=== PATIENT | male | born 1945 | race Caucasian/White ===

== ENCOUNTER 2025-06-11 14:28 | Outpatient (REF) | payer MEDICARE, SELFPAY ==
--- OUTSIDE RECORDS SUMMARY | 2025-06-11 14:31 | XMS_ITS | Encounter Summary ---
Author Organization [email or web address] Address [address] [place] [address] Care Team Providers Care Calibrator Barometers Name Role Phone Belkis Francis MD Primary Care Provider Reason for Visit * Reason Comments Med Refill Encounter Details Date Type Department Care Team (Late st Contact Info) Description 09/02/2024 Refill [facility] [address] [place] [address] Belkis Francis MD [address] [place] [address] Body mass index (BMI) 40.0-44.9, adult (CMS/HCC) Social History Tobacco Use Types Packs/Day Years Used Date Smoking Tobacco: Former Cigarettes Smokeless Tobacco: Never Alcohol Use Standard Drinks/Week Comments Not Currently 0 (1 standard drink = 0.6 oz pur e alcohol) Sex and Gender Information Value Date Recorded Sex Assigned at Male 01/22/2023 11:47 AM EDT Legal Sex Male 8:38 PM EDT Gender Identity Male 01/22/2023 11:47 AM EDT Sexual Orientation Straight 01/22/2023 11 :47 AM EDT documented as of this encounter Plan of Treatment Not on file documented as of this encounter Visit Diagnoses Diagnosis Body mass index (BMI) 40.0-44.9, adult (CMS/HCC) documented in this encounter Care Teams Calibrator Barometers Relationship Specialty Start Date End Date Belkis Francis MD [address] [place] [address] PCP - General Internal Medicine 10/26/22 documented as of this encounter
--- OUTSIDE RECORDS SUMMARY | 2025-06-11 14:32 | XMS_ITS | Clinical Summary ---
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 02/09/20 25 Active sodium phosphates 19-7 gram/[address] 1 Units rectally daily as needed (Constipatio n). 04/29/20 25 Active senna (SENOKOT) 8.6 mg tablet Take 1 tablet by mouth daily as needed for constipation . 04/29/20 25 Active rosuvastatin (CRESTOR) 40 MG tablet Take 1 tablet by mouth every morning. 03/14/20 25 Active pregabalin (LYRICA) 50 MG capsule Take 50 mg by mouth 3 (three) times a day. 05/10/20 25 Active phentermine 15 MG capsule Take 15 mg by mouth 2 (two) times a day. 04/20/20 25 Active omeprazole (PRILOSEC) 20 MG capsule Take 20 mg by mouth daily. 04/19/20 25 Active montelukast (SINGULAIR) 10 mg tablet Take 10 mg by mouth every evening. 04/19/20 25 Active MYRBETRIQ 50 mg Tb24 Take 50 mg by mouth daily. 04/09/20 24 Active lisinopril (PRINIVIL,ZEST RIL) 5 MG tablet Take 5 mg by mouth daily. 11/12/19 25 Active ferrous sulfate 325 mg (65 mg nome iron) tablet Take 325 mg by mouth daily with breakfast. 04/30/20 Active LEXAPRO 20 mg tablet Take 20 mg by mouth daily. 12/30/19 25 Active DULoxetine (CYMBALTA) 60 MG capsule Take 60 mg by mouth daily. 04/30/20 25 Active docusate sodium (COLACE) 100 MG capsule Take 100 mg by mouth daily. 04/30/20 25 Active buPROPion (WELLBUTRIN SR) 150 MG SR 12 hr tablet Take 150 mg by mouth 2 (two) times a day with meals. 04/30/20 25 Active apixaban (ELIQUIS) 5 mg tablet Take 5 mg by mouth 2 (two) times a day. 04/30/20 25 Active acetaminophen (TYLENOL EXTRA STRENGTH) 500 MG tablet Take 1,000 mg by mouth every 8 (eight) hours as needed for pain (specific location in comments) or fever. 05/01/20 25 Active oxyCODONE 10 mg Tab Take 0.5-1 tablets (5-10 mg total) by mouth every 4 (four) hours as needed for pain (specific location in comments) (5 mg for moderate pain and 10 mg fro severe pain q 4 hrs). Partial fill ok 10 tablet 05/24/20 25 Active metoprolol tartrate (LOPRESSOR) 25 MG tablet Take 2 tablets (50 mg total) by mouth 2 (two) times a day. 120 tablet 05/24/20 25 Active zolpidem (AMBIEN) 5 MG tablet Take 5 mg by mouth daily. 05/07/20 25 025 Discontinued(No longer taking) OXYCONTIN 40 mg 12 hr tablet Take 1 tablet by mouth 2 (two) times a day. 03/30/20 25 025 Discontinued(St op Taking at Discharge) metoprolol tartrate (LOPRESSOR) 25 MG tablet Take 25 mg by mouth 2 (two) times a day. 06/15/20 24 025 Discontinued Active Problems Problem Noted Date Diagnosed Date Constipation 05/23/2025 Assessment & Plan (05/23/2025 6:42 PM EDT): Will start bowel regimen of senna, Colace and MiraLAX. Obesity hypoventilation syndrome 05/22/2025 Assessment & Plan (05/23/2025 6:42 PM EDT): Assessment & Plan (05/22/2025 5:53 PM EDT): Recurrent falls 05/18/2025 Altered mental status, unspe cified altered mental status type 05/18/2025 Assessment & Plan (05/23/2025 6:44 PM EDT): Toxic metabolic encephalopathy, multifactorial marked improvement on BiPAP overnight serotonin syndrome was initially thought to be part of the differential because of fever at presentation -now ruled out. High-dose opiate with OxyContin 40 mg every 12 hours at baseline. Apparently, the patient has been on this for some time. Given the degree of severity of his pulmonary illness and his high likelihood/propensity for hypercarbia and hypercarbic respiratory failure favor resuming only as needed oxycodone at a low dose. ICU feels that this patient should never resume long-acting OxyContin given his risk for respiratory depression. Therefore only getting PRN oxycodone with good effect. Will require BiPAP at night going forward as this is likely the source of his AMS. Seems more alert and oriented today. All of his antidepressants have been restarted at this point without changes to his mentation. Assessment & Plan (05/22/2025 5:53 PM EDT): Toxic metabolic encephalopathy, multifactorial marked improvement on BiPAP overnight serotonin syndrome was initially thought to be part of the differential because of fever at presentation -now ruled out. We will start reintroducing depression/anxiety medications today. Cymbalta first and then Lexapro and Wellbutrin tomorrow. High-dose opiate with OxyContin 40 mg every 12 hours at baseline. Apparently, the patient has been on this for some time. Given the degree of severity of his pulmonary illness and his high likelihood/propensity for hypercarbia and hypercarbic respiratory failure favor resuming only as needed oxycodone at a low dose. ICU feels that this patient should never resume long-acting OxyContin given his risk for respiratory depression. Seems more alert and oriented today. Assessment & Plan (05/21/2025 9:47 PM EDT): Toxic metabolic encephalopathy, multifactorial marked improvement on BiPAP overnight serotonin syndrome was initially thought to be part of the differential because of fever at presentation -now ruled out. We will start reintroducing depression/anxiety medications today. Cymbalta first and then Lexapro and Wellbutrin next 24 hours High-dose opiate with OxyContin 40 mg every 12 hours at baseline. Apparently, the patient has been on this for some time. Given the degree of severity of his pulmonary illness and his high likelihood/propensity for hypercarbia and hypercarbic respiratory failure favor resuming only as needed oxycodone at a low dose. ICU feels that this patient should never resume long-acting OxyContin given his risk for respiratory depression. Seems more alert and oriented today. Fever 05/18/2025 Assessment & Plan (05/23/2025 6:42 PM EDT): No evidence of infection so antibiotics stopped in the ICU. Assessment & Plan (05/22/2025 5:53 PM EDT): No evidence of infection so antibiotics stopped in the ICU. Assessment & Plan (05/21/2025 9:47 PM EDT): No evidence of infection so antibiotics stopped in the ICU. Atrial fibrillation with RVR 05/18/2025 Assessment & Plan (05/23/2025 6:42 PM EDT): Bedside echo had very poor acoustic windows and the patient was in A-fib with a rapid ventricular response rate. Continue usual apixaban given persistent rapid ventricular response, Continue increased dose p.o. Lopressor 50 mg p.o. twice daily Assessment & Plan (05/22/2025 5:53 PM EDT): Bedside echo had very poor acoustic windows and the patient was in A-fib with a rapid ventricular response rate. Continue usual apixaban given persistent rapid ventricular response, Continue increased p.o. Lopressor 50 mg p.o. twice daily Assessment & Plan (05/21/2025 9:47 PM EDT): Continue metoprolol and apixaban Acute encephalopathy 05/18/2025 Osteoarthritis 04/30/2025 Sleep apnea with use of noct urnal bilevel positive airway pressure (BPAP) 04/30/2025 Assessment & Plan (05/23/2025 6:42 PM EDT): Obesity hypoventilation syndrome, obstructive sleep apnea not on CPAP, acute on chronic hypoxic respiratory failure Maintain nocturnal BiPAP --CT of chest this admission with overt evidence for tracheobronchial malacia. This patient would likely benefit from positive pressure ventilatory support with BiPAP or AVAPS going forward No CT evidence for pneumonia or PE --antibiotics discontinued 05/20. Planning to trend inflammatory markers and fever curve Will arrange for BiPAP at SNF, and they can arrange for this to be set up at home at discharge. He has been accepted at [facility] but they will need to obtain BiPAP and a bariatric bed on Saturday prior to his discharge. Assessment & Plan (05/22/2025 5:53 PM EDT): Obesity hypoventilation syndrome, obstructive sleep apnea not on CPAP, acute on chronic hypoxic respiratory failure Maintain nocturnal BiPAP --CT of chest this admission with overt evidence for tracheobronchial malacia. This patient would likely benefit from positive pressure ventilatory support with BiPAP or AVAPS going forward No CT evidence for pneumonia or PE --antibiotics discontinued 05/20. Planning to trend inflammatory markers and fever curve Will arrange for BiPAP at SNF, and they can arrange for this to be set up at home at discharge. He has been accepted at [facility] but they will need to obtain BiPAP and a bariatric bed on Saturday prior to his discharge. Assessment & Plan (05/21/2025 9:47 PM EDT): Obesity hypoventilation syndrome, obstructive sleep apnea not on CPAP, acute on chronic hypoxic respiratory failure Maintain nocturnal BiPAP --CT of chest this admission with overt evidence for tracheobronchial malacia. This patient would likely benefit from positive pressure ventilatory support with BiPAP or AVAPS going forward No CT evidence for pneumonia or PE --antibiotics discontinued 05/20. Planning to trend inflammatory markers and fever curve Insomnia 04/30/2025 Edema of lower extremity 04/30/2025 Body mass index (BMI) 45.0-49.9, adult Retention of urine 04/29/2025 Localized edema 04/29/2025 Hypervolemia 04/29/2025 Hyperlipidemia 04/29/2025 Disorientated 04/29/2025 Hypo-osmolality and hyponatremia 04/29/2025 Anxiety and depression 04/29/2025 Assessment & Plan (05/23/2025 6:42 PM EDT): Continue duloxetine Restarted Wellbutrin and Lexapro 05/22. Assessment & Plan (05/22/2025 5:53 PM EDT): Continue duloxetine Start back his Wellbutrin and Lexapro tomorrow. Assessment & Plan (05/21/2025 9:47 PM EDT): Continue duloxetine Recurrent major depressive disorder 12/20/2022 Assessment & Plan (05/21/2025 9:47 PM EDT): Paroxysmal atrial fibrillation 12/20/2022 Assessment & Plan (05/21/2025 9:47 PM EDT): Bedside echo had very poor acoustic windows and the patient was in A-fib with a rapid ventricular response rate. 1.1 L positive length of stay Continue usual apixaban given persistent rapid ventricular response, will increase usual p.o. Lopressor 25 mg twice daily To 50 mg p.o. twice daily Chronic GERD 12/20/2022 Assessment & Plan (05/23/2025 6:42 PM EDT): Report of black stool occult blood positive trend CBC on PPI. Tolerated regular diet. Should get outpatient GI referral for colonoscopy. Assessment & Plan (05/22/2025 5:53 PM EDT): Report of black stool occult blood positive trend CBC on PPI if persists will need GI eval advance diet as tolerated now that mental status improved and patient off BiPAP. Complete bedside swallowing evaluation Assessment & Plan (05/21/2025 9:47 PM EDT): Report of black stool occult blood positive trend CBC on PPI if persists will need GI eval advance diet as tolerated now that mental status improved and patient off BiPAP. 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 Assessment & Plan (05/22/2025 5:53 PM EDT): Change from OxyContin ER to oxycodone 5 mg as needed, will monitor for signs of opiate withdrawal. Assessment & Plan (05/21/2025 9:47 PM EDT): Change from OxyContin ER to oxycodone 5 mg as needed, will monitor for signs of opiate withdrawal. Chronic obstructive pulmonary disease 12/20/2022 Assessment & Plan (05/21/2025 9:47 PM EDT): Encounters Date Type Department Care Team Description 05/19/2025 10:15 AM EDT Ancillary Procedure [address] [address] Froylan Rowe CNP 05/18/2025 6:00 PM EDT - 05/18/2025 6:55 PM EDT Surgery [facility] [address] [place] [id number] Ghanshyam Amaya MD Lumbar Puncture 05/18/2025 1:35 PM EDT Ancillary Procedure [facility] - [address] [address] Vance Finney PA-C 05/18/2025 11:09 AM EDT - 05/24/2025 1:19 PM EDT Hospital Encounter [facility] [address] [place] [id number] Milvia Ayers MD Zaman, MD Tawanna Noland Sandeep, MD Yau, MD Guerrero Vences Helena C, DO Discharge Disposition: Shelter Facility 05/18/2025 10:26 AM EDT - 05/18/2025 11:08 AM EDT Hospital Encounter [facility] Laboratory [address] [place] [address] Jesse Lopez MD Discharge Disposition: Home or Self Care 05/18/2025 Procedure Pass [address] [address] 05/18/2025 Procedure Pass [address] [address] 05/18/2025 Procedure Pass [facility] Cardiovascular And Interventional Radiology [address] [place] [id number] 05/18/2025 Procedure Pass [address] [address] 05/18/2025 Procedure Pass [address] [address] 05/18/2025 Transcribe Orders [facility] Specimen Processing [address] [place] [id number] Jesse Lopez MD Anemia, unspecified type (Primary Dx); Essential hypertension, malignant 05/13/2025 7:20 AM EDT - 05/13/2025 11:59 PM EDT Hospital Encounter [facility] Laboratory [address] [place] [address] Jesse Lopez MD Discharge Disposition: Home or Self Care 05/11/2025 8:38 AM EDT - 05/11/2025 11:59 PM EDT Hospital Encounter [facility] Laboratory [address] [place] [address] Ninfa Gonzalez NP Discharge Disposition: Home or Self Care 05/11/2025 Transcribe Orders [facility] Specimen Processing [address] [place] [address] Ninfa Gonzalez NP Hypervolemia, unspecified hypervolemia type (Primary Dx) 05/10/2025 10:20 AM EDT - 05/10/2025 11:59 PM EDT Hospital Encounter [facility] Laboratory [address] [place] [address] Jesse Lopez MD Discharge Disposition: Home or Self Care 05/10/2025 Transcribe Orders [facility] Specimen Processing [address] [place] [address] Jesse Lopez MD Anemia, unspecified type (Primary Dx) 05/09/2025 3:43 PM EDT - 05/09/2025 11:59 PM EDT Hospital Encounter [facility] Laboratory [address] [place] [address] Jesse Lopez MD Discharge Disposition: Home or Self Care 05/09/2025 Transcribe Orders [facility] Laboratory [address] [place] [id number] Jesse Lopez MD Hyposmolality syndrome (Primary Dx); Altered mental status, unspecified altered mental status type 05/07/2025 7:19 AM EDT - 05/07/2025 11:59 PM EDT Hospital Encounter [facility] Laboratory [address] [place] [address] Jesse Lopez MD Discharge Disposition: Home or Self Care 05/05/2025 6:27 AM EDT - 05/05/2025 11:59 PM EDT Hospital Encounter [facility] Laboratory [address] [place] [address] Jesse Lopez MD Discharge Disposition: Home or Self Care 05/05/2025 Transcribe Orders [facility] Specimen Processing [address] [place] [address] Jesse Lopez MD Confusion (Primary Dx); Altered mental status, unspecified altered mental status type; Essential hypertension, malignant 05/05/2025 Transcribe Orders [facility] Specimen Processing [address] [place] [address] Jesse Lopez MD Atrial fibrillation, unspecified type (Primary Dx) 04/30/2025 10:48 AM EDT - 04/30/2025 11:59 PM EDT Hospital Encounter [facility] Laboratory [address] [place] [address] Jesse Lopez MD Discharge Disposition: Home or Self Care 04/30/2025 Transcribe Orders [facility] Specimen Processing [address] [place] [address] Jesse Lopez MD Atrial fibrillation, unspecified type (Primary Dx) from Last 3 Months Immunizations Immunization Administration Dates Next Due Pneumococcal polysaccharide PPSV23 06/01/2019,,11/30/2012 Tdap 06/01/2019 Social History Tobacco Use Types Packs/Day Years Used Date Smoking Tobacco: Former Cigarettes Education Answer Date Recorded Are you interested in more education? Not on brady e 04/30/2025 Are you concerned about learning? Not on file 04/30/2025 No 04/30/2025 No 04/30/2025 Food Answer Date Recorded Within the past 6 months we worried whether our food would run out before we got money to buy more. Never True 05/21/2025 Within the past 6 months the food we bought just didn't last and we didn't have enough money to get more. Never True Residential Stability Answer Date Recor ded What is your housing situation today? I have shaji sing 05/21/2025 How many times have you move d in the past 12 months? Zero (I did not move) 05/21/2025 Paying for Meds Answer Date Recorded Do you have trouble paying for medicines? No 05/21/2025 Paying Utility Bills Answer Date Record ed Do you have trouble paying your heating or elect ricity bill? No 05/21/2025 Transportation Answer Date Recorded Has the lack of transportati on kept you from medical appointments or from getting medications? No 05/21/2025 Digital Access Answer Date Recorded No 05/21/2025 Yes 05/21/2025 Do you have reliable internet access at home? Ye s 05/21/2025 Do you have a device (e.g., phone, tablet, computer) with a working camera? Yes 05/21/2025 Intimate Partner Violence Answer Date R ecorded Are you denied basic needs s uch as food, clothing, or medical care? No 05/18/2025 In the past 12 months have y ou been in a relationship with a person who hurts, threatens, or tries to control you? No 05/18/2025 Are you denied basic needs s uch as food, clothing, or medical care? No 05/18/2025 In the past 12 months have y ou been in a relationship with a person who hurts, threatens, or tries to control you? No 05/18/2025 Sex and Gender Information Value Date Recorded Sex Assigned at Not on file Legal Sex Male 9:43 AM EDT Gender Identity Not on file Sexual Orientation Not on file Last Filed Vital Signs Vital Sign Reading Time Taken Comments Blood Pressure 120/75 05/24/2025 7:41 AM EDT Pulse 86 05/24/2025 7:41 AM EDT Temperature 35.9 C (96.7 F) 05/24/2025 7:41 AM EDT Respiratory Rate 18 05/24/2025 7:41 AM EDT Oxygen Saturation 96% 05/24/2025 7:41 AM EDT Inhaled Oxygen Concentration 30% 05/20/2025 4 :00 AM EDT Weight 154.7 kg (341 lb 0.8 oz) 05/24/2025 8:02 AM EDT Height 190.5 cm (6' 3 ) 05/18/2025 10:0 0 PM EDT Body Mass Index 42.63 05/18/2025 10:00 PM EDT Plan of Treatment Health Maintenance Due Date Last Done Comments BLOOD PRESSURE 1947 DEPRESSION SCREENING 1959 SMOKING Hx and SMOKELESS TOBACCO SCREENING 1960 HEPATITIS C SCREENING 1965 ZOSTER VACCINES (1 of 2) 1997 PNEUMOCOCCAL VACCINES (50+ years) (2 of 2 - PCV) 06/01/2020 06/01/2019, 06/21/2015, 11/30/2012 RSV VACCINE (1 - 1-dose 75+ series) 2022 COVID-19 VACCINE (1 - 2023- season) 2024 CREATININE LEVEL 05/23/2026 05/23/2025, 11/2024, 05/21/2025, Additional history exists POTASSIUM LEVEL 05/23/2026 05/23/2025, 0811/2024, 05/21/2025, Additional history exists Adult Td,Tdap Booster 06/01/2029 06/01/2019 HEPATITIS A VACCINES Aged Out No long er eligible based on patient's age to complete this topic HIB VACCINES Aged Out No longer eligi ble based on patient's age to complete this topic MENINGOCOCCAL VACCINES (ACWY) Aged Out No longer eligible based on patient's age to complete this topic MENINGOCOCCAL VACCINES (B) Aged Out N o longer eligible based on patient's age to complete this topic Medical Devices Not on file Procedures Procedure Name Priority Date/Time Associated Diagnosis Comments CBC Routine 05/23/2025 7:03 AM EDT BASIC METABOLIC PANEL Routine 05/23/2025 7:03 AM EDT CBC Routine 05/22/2025 8:15 AM EDT BASIC METABOLIC PANEL Routine 05/22/2025 8:15 AM EDT PROCALCITONIN Routine 05/21/2025 5:54 AM EDT PHOSPHORUS Routine 05/21/2025 5:54 AM EDT MAGNESIUM Routine 05/21/2025 5:54 AM EDT BASIC METABOLIC PANEL Routine 05/21/2025 5:54 AM EDT CBC AND DIFFERENTIAL Routine 05/21/2025 5:54 AM EDT CBC AND DIFFERENTIAL STAT 05/20/2025 3:38 PM EDT PHOSPHORUS Timed 05/20/2025 3:38 PM EDT MAGNESIUM Timed 05/20/2025 3:38 PM EDT IONIZED CALCIUM Timed 05/20/2025 3:38 PM EDT BASIC METABOLIC PANEL Timed 05/20/2025 3:38 PM EDT HC BLOOD OCCULT FECAL HGB DETER IA QUAL FECES 1-3 Routine 05/20/2025 2:01 PM EDT VENOUS BLOOD GAS Routine 05/20/2025 6:00 AM EDT XR CHEST 1 VIEW Imaging in AM 05/20/2025 5:37 AM EDT SEDIMENTATION RATE (ESR) Routine 05/20/2025 3:23 AM EDT C-REACTIVE PROTEIN Routine 05/20/2025 3: 23 AM EDT PT-INR Routine 05/20/2025 3:23 AM EDT NT-PROBNP Routine 05/20/2025 3:23 AM EDT PROCALCITONIN Routine 05/20/2025 3:23 AM EDT TSH WITH REFLEX Routine 05/20/2025 3:23 AM EDT IONIZED CALCIUM Routine 05/20/2025 3:23 AM EDT PHOSPHORUS Routine 05/20/2025 3:23 AM EDT MAGNESIUM Routine 05/20/2025 3:23 AM EDT CBC AND DIFFERENTIAL Routine 05/20/2025 3:23 AM EDT COMPREHENSIVE METABOLIC PANEL Routine 05/20/2025 3:23 AM EDT US BEDSIDE Routine 05/19/2025 10:11 AM EDT Sepsis, due to unspecified organism, unspecified whether acute organ dysfunction present POCT GLUCOSE Routine 05/19/2025 8:23 AM EDT ARTERIAL BLOOD GAS STAT 05/19/2025 7: 23 AM EDT LFTS (HEPATIC PANEL) Routine 05/19/2025 3:30 AM EDT PROCALCITONIN Routine 05/19/2025 3:30 AM EDT C-REACTIVE PROTEIN, HIGH SENSITIVITY Routine 05/19/2025 3:30 AM EDT CBC AND DIFFERENTIAL Routine 05/19/2025 3:30 AM EDT PHOSPHORUS Routine 05/19/2025 3:30 AM EDT MAGNESIUM Routine 05/19/2025 3:30 AM EDT BASIC METABOLIC PANEL Routine 05/19/2025 3:30 AM EDT GENERIC BEDSIDE PROCEDURE Routine 05/19/2025 2:52 AM EDT Altered mental status, unspecified altered mental status type Fever, unspecified fever cause Acute encephalopathy IP CONSULT TO WOUND NURSE Routine 05/18/2025 11:00 PM EDT MRSA PCR SCREEN Routine 05/18/2025 10:41 PM EDT VENOUS BLOOD GAS STAT 05/18/2025 8:49 PM EDT MENINGITIS ENCEPHALITIS PANEL, PCR, CSF STAT 05/18/2025 7:37 PM EDT GLUCOSE, CSF STAT 05/18/2025 6:40 PM EDT TOTAL PROTEIN, CSF STAT 05/18/2025 6: 40 PM EDT CELL COUNT & DIFFERENTIAL, TUBE 4 STAT 05/18/2025 6:40 PM EDT Cell count/differential, CSF STAT 05/18/2025 6:40 PM EDT LYME DISEASE PCR, NON BLOOD Routine 05/18/2025 6:40 PM EDT CULTURE/SMEAR, CSF STAT 05/18/2025 6: 40 PM EDT LUMBAR PUNCTURE (IR) Routine 05/18/2025 6:28 PM EDT Altered mental status, unspecified altered mental status type LACTIC ACID (LACTATE) STAT 05/18/2025 5:[address] ABDOMEN/PELVIS WITH CONTRAST Routine 05/18/2025 5:[address] CHEST WITH CONTRAST Routine 05/18/2025 5:[address] ANGIO HEAD WITH CONTRAST, CT ANGIO NECK WITH CONTRAST Routine 05/18/2025 4:[address] HEAD WITHOUT CONTRAST Routine 05/18/2025 4:58 PM EDT BLOOD CULTURE, ROUTINE STAT 05/18/2025 3:45 PM EDT AMMONIA STAT 05/18/2025 2:48 PM EDT ETHANOL, BLOOD STAT 05/18/2025 2:48 PM EDT LACTIC ACID (LACTATE) STAT 05/18/2025 2:48 PM EDT LAB ADD ON STAT 05/18/2025 2:48 PM EDT BLOOD CULTURE, ROUTINE STAT 05/18/2025 2:48 PM EDT ECG 12-LEAD STAT 05/18/2025 2:28 PM EDT TOXICOLOGY SCREEN, URINE STAT 05/18/2025 1:54 PM EDT US BEDSIDE Routine 05/18/2025 1:30 PM EDT POCT GLUCOSE STAT 05/18/2025 12:15 PM EDT POCT GLUCOSE Routine 05/18/2025 12:14 PM EDT TSH WITH REFLEX Routine 05/18/2025 12:13 PM EDT CPK (CREATINE KINASE) Routine 05/18/2025 12:13 PM EDT C-REACTIVE PROTEIN Routine 05/18/2025 12:13 PM EDT PT-INR STAT 05/18/2025 12:13 PM EDT LACTIC ACID (LACTATE) STAT 05/18/2025 12:13 PM EDT LIPASE STAT 05/18/2025 12:13 PM EDT MAGNESIUM STAT 05/18/2025 12:13 PM EDT LFTS (HEPATIC PANEL) STAT 05/18/2025 12:13 PM EDT BASIC METABOLIC PANEL STAT 05/18/2025 12:13 PM EDT CBC AND DIFFERENTIAL STAT 05/18/2025 12:13 PM EDT URINALYSIS W/REFLEX URINE CULTURE STAT 05/18/2025 12:09 PM EDT ECG 12-LEAD STAT 05/18/2025 12:05 PM EDT BASIC METABOLIC PANEL Routine 05/18/2025 8:05 AM EDT Anemia, unspecified type Essential hypertension, malignant CBC Routine 05/18/2025 8:05 AM EDT Anemia, unspecified type Essential hypertension, malignant COMPREHENSIVE METABOLIC PANEL Routine 05/13/2025 6:18 AM EDT Hypervolemia, unspecified hypervolemia type Essential hypertension, malignant CBC Routine 05/13/2025 6:18 AM EDT Hypervolemia, unspecified hypervolemia type Essential hypertension, malignant PHOSPHORUS Routine 05/11/2025 6:25 AM EDT Hypervolemia, unspecified hypervolemia type MAGNESIUM Routine 05/11/2025 6:25 AM EDT Hypervolemia, unspecified hypervolemia type CBC Routine 05/11/2025 6:25 AM EDT Hypervolemia, unspecified hypervolemia type BASIC METABOLIC PANEL Routine 05/11/2025 6:25 AM EDT Hypervolemia, unspecified hypervolemia type COMPREHENSIVE METABOLIC PANEL Routine 05/10/2025 7:20 AM EDT Anemia, unspecified type CBC Routine 05/10/2025 7:20 AM EDT Anemia, unspecified type COMPREHENSIVE METABOLIC PANEL Routine 05/09/2025 3:17 PM EDT Hyposmolality syndrome Altered mental status, unspecified altered mental status type COMPREHENSIVE METABOLIC PANEL Routine 05/07/2025 7:20 AM EDT Confusion Altered mental status, unspecified altered mental status type Essential hypertension, malignant CBC Routine 05/07/2025 7:20 AM EDT Confusion Altered mental status, unspecified altered mental status type Essential hypertension, malignant URINE SEDIMENT Routine 05/05/2025 1:42 PM EDT URINALYSIS Routine 05/05/2025 1:42 PM EDT Confusion Altered mental status, unspecified altered mental status type URINE CULTURE Routine 05/05/2025 1:42 PM EDT Confusion Altered mental status, unspecified altered mental status type BASIC METABOLIC PANEL Routine 05/05/2025 5:35 AM EDT Atrial fibrillation, unspecified type CBC Routine 05/05/2025 5:35 AM EDT Atrial fibrillation, unspecified type COMPREHENSIVE METABOLIC PANEL Routine 04/30/2025 5:20 AM EDT Atrial fibrillation, unspecified type CBC Routine 04/30/2025 5:20 AM EDT Atrial fibrillation, unspecified type from Last 3 Months Results * (ABNORMAL) CBC (05/23/2025 7:03 AM EDT) Only the most recent of9 resultswithin the time period is included. WBC 6.64 4.00 - 11.00 K/uL [facility] RBC 4.48(L) 4.50 - 5.90 M/uL [facility] HGB 12.0(L) 13.5 - 17.5 g/dL [facility] HCT 39.9(L) 41.0 - 53.0 % [facility] PLT 215 150 - 450 K/uL [facility] MCV 89.1 80.0 - 100.0 fL [facility] MCH 26.8(L) 27.0 - 31.0 pg [facility] MCHC 30.1(L) 32.0 - 36.0 g/dL [facility] RDW 23.8(H) 11.5 - 14.5 % [facility] MPV 8.8 8.4 - 12.0 fL [facility] NRBC 0.00 0.00 /100 WBCs [facility] ABSOLUTE NRBC 0.00 0.00 K/uL [facility] Blood 05/23/2025 7:03 AM EDT 05/23/2025 7:10 AM EDT Varun Bautista MD LAB BLOOD ORDERABLES Final Resul t Performing Organization Address City/[facility]/ZIP Co de Phone Number [address] [address] * (ABNORMAL) Basic metabolic panel (05/23/2025 7:03 AM EDT) Only the most recent of9 resultswithin the time period is included. SODIUM 142 133 - 146 mmol/L [facility] CHLORIDE 101 96 - 108 mmol/L [facility] POTASSIUM 4.5 3.3 - 5.1 mmol/L [facility] CO2 32 21 - 35 mmol/L [facility] BUN 12 6 - 19 mg/dL [facility] CREATININE 0.60 0.5 - 1.5 mg/dL [facility] GLUCOSE 109(H) 70 - 99 mg/dL [facility] CALCIUM 9.3 8.4 - 10.3 mg/dL [facility] EGFR 99 >59 mL/min/1.7 3m2 [facility] Comment:Estimated glomerular filtration rate calculated using the CKD-EPI refit equation. ANION GAP 14 10 - 20 mmol/L [facility] Blood 05/23/2025 7:03 AM EDT 05/23/2025 7:10 AM EDT Varun Bautista MD LAB BLOOD ORDERABLES Final Resul t [address] [address] * Procalcitonin (05/21/2025 5:54 AM EDT) Only the most recent of3 resultswithin the time period is included. Procalcitonin 0.03 0.00 - 0.25 ng/mL [facility] Comment: <=0.25 ng/mL: Bacterial pneumonia is unlikely. <0.5 ng/mL: Low likelihood of systemic bacterial infection / sepsis. Localized infection is possible. 0.5-2.0 ng/mL: Systemic bacterial infection / sepsis is possible, but other conditions can induce PCT levels in this range as well (e.g., pancreatitis,severe trauma, circulatory shock, surgery, gonzalez, inhalation injury.) >2.0 ng/mL: Systemic bacterial infection / sepsis is likely. Additional information can be found in the [employer] Procalcitonin Guidelines, available at [email or web address] Blood 05/21/2025 5:54 AM EDT 05/21/2025 6:00 AM EDT us Froylan Rowe [facility] LAB BLOOD ORDERABLES Cara ramos Result [address] [address] * (ABNORMAL) CBC and differential (05/21/2025 5:54 AM EDT) Only the most recent of5 resultswithin the time period is included. WBC 7.09 4.00 - 11.00 K/uL [facility] RBC 4.32(L) 4.50 - 5.90 M/uL [facility] HGB 11.4(L) 13.5 - 17.5 g/dL [facility] HCT 37.8(L) 41.0 - 53.0 % [facility] PLT 226 150 - 450 K/uL [facility] MCV 87.5 80.0 - 100.0 fL [facility] MCH 26.4(L) 27.0 - 31.0 pg [facility] MCHC 30.2(L) 32.0 - 36.0 g/dL [facility] RDW 24.3(H) 11.5 - 14.5 % [facility] MPV 8.5 8.4 - 12.0 fL [facility] NRBC 0.00 0.00 /100 WBCs [facility] ABSOLUTE NRBC 0.00 0.00 K/uL [facility] DIFF METHOD Auto [facility] NEUTS 62.5 48.0 - 76.0 % [facility] LYMPHS 17.5(L) 18.0 - 41.0 % [facility] MONOS 11.1(H) 4.0 - 11.0 % [facility] EOS 7.9(H) 0.0 - 5.0 % [facility] BASOS 0.7 0.0 - 1.5 % [facility] Granulocytes, immature (%) 0.3 0.0 - 0.9 % [facility] ABSOLUTE NEUTS 4.43 1.92 - 7.60 K/uL [facility] ABSOLUTE LYMPHS 1.24 0.72 - 4.10 K/uL [facility] ABSOLUTE MONOS 0.79 0.16 - 1.10 K/uL [facility] ABSOLUTE EOS 0.56(H) 0.00 - 0.50 K/uL [facility] ABSOLUTE BASOS 0.05 0.00 - 0.15 K/uL [facility] Granulocytes, immature 0.02 0.00 - 0.09 K/uL [facility] Blood 05/21/2025 5:54 AM EDT 05/21/2025 6:00 AM EDT Froylan Rowe CNP LAB BLOOD ORDERABLES Cara l Result [address] [address] * Phosphorus (05/21/2025 5:54 AM EDT) Only the most recent of5 resultswithin the time period is included. PHOSPHORUS 3.5 2.7 - 4.5 mg/dL [facility] Blood 05/21/2025 5:54 AM EDT 05/21/2025 6:00 AM EDT Froylan Rowe [facility] LAB BLOOD ORDERABLES Cara l Result [address] [address] * Magnesium (05/21/2025 5:54 AM EDT) Only the most recent of6 resultswithin the time period is included. [facility] MAGNESIUM 2.1 1.6 - 2.6 mg/dL [facility] Blood 05/21/2025 5:54 AM EDT 05/21/2025 6:00 AM EDT us Froylan Rowe [employer] LAB BLOOD ORDERABLES Cara l Result Performing Organization Address [facility]/ZIP Co de Phone Number [address] [address] * Ionized calcium (05/20/2025 3:38 PM EDT) Only the most recent of2 resultswithin the time period is included. [facility] IONIZED CALCIUM 1.18 1.14 - 1.37 mmol/L [facility] Blood 05/20/2025 3:38 PM EDT 05/20/2025 4:07 PM EDT us Criselda Mckeon MD LAB BLOOD ORDERABLES Final Re sult Performing Organization Address [facility] Co de Phone Number [address] [address] * (ABNORMAL) Fecal immunochemical test x1 (FIT) (05/20/2025 2:01 PM EDT) [facility] Immuno Fecal Occult Positive(A ) Negative [facility] Stool (Stool) 05/20/2025 2:0 1 PM EDT 05/20/2025 2:21 PM EDT us Criselda Mckeon MD BODY FLUIDS AND STOOLS ORDERA BLES Final Result Performing Organization Address [facility] Co de Phone Number [address] [address] * (ABNORMAL) Venous blood gas (05/20/2025 6:00 AM EDT) Only the most recent of2 resultswithin the time period is included. [facility] pH, Venous 7.48(H) 7.31 - 7.41 [facility] PCO2, Venous 36.00(L) 41.00 - 51.00 mmHg [facility] PO2, Venous 191.90(H) 35.00 - 40.00 mmHg [facility] HCO3, Venous 26 23 - 28 mmol/L [facility] BASE EXCESS VENOUS 3.0 0.0 - 3.0 mmol/L [facility] SO2, VENOUS 99.80(H) 60.00 - 80.00 % [facility] FO2HB, VENOUS 97.60(H) 71.00 - 74.00 % [facility] Carboxy Hgb 2.20(H) 0 - 1.50 % [facility] MetHgb % 0.00 0 - 1.50 % [facility] Blood 05/20/2025 6:00 AM EDT 05/20/2025 6:07 AM EDT Mariela Lemos PA-C, MPH LAB BLOOD ORDERABLE S Final Result [facility] [address] [place] [address] * XR CHEST 1 VIEW (05/20/2025 5:37 AM EDT) Anatomical Region Laterality Modality Chest Computed Radiogr aphy 05/20/2025 8:02 AM EDT Impressions 05/20/2025 8:04 AM EDT Low lung volumes without evidence of pneumonia or pulmonary edema. Narrative 05/20/2025 8:04 AM EDT XR CHEST 1 VIEW Referring clinician's provided indication for this examination in [facility]: Fever; COMPARISON: CT CHEST WITH CONTRAST FINDINGS: Devices/Tubes/Lines: None. Lungs: Low lung volumes without focal consolidation or pulmonary edema. Pleura: No pleural effusion or pneumothorax. Heart/Mediastinum: Cardiac silhouette and mediastinal contours are within normal limits. Bones/Soft Tissues: No acute osseous finding. Partially visualized upper abdomen: Unremarkable. Procedure Note Kianna Leonardo MD - 05/20/2025 XR CHEST 1 VIEW Referring clinician's provided indication for this examination in [facility]:Fever; COMPARISON: CT CHEST WITH CONTRAST FINDINGS: Devices/Tubes/Lines: None. Lungs: Low lung volumes without focal consolidation or pulmonary edema. Pleura: No pleural effusion or pneumothorax. Heart/Mediastinum: Cardiac silhouette and mediastinal contours are withinnormal limits. Bones/Soft Tissues: No acute osseous finding. Partially visualized upper abdomen: Unremarkable. IMPRESSION: Low lung volumes without evidence of pneumonia or pulmonary edema. us Criselda Mckeon MD IMG XR CHEST Final Result * (ABNORMAL) Comprehensive metabolic panel (05/20/2025 3:23 AM EDT) Only the most recent of6 resultswithin the time period is included. SODIUM 142 133 - 146 mmol/L [facility] POTASSIUM 3.3 3.3 - 5.1 mmol/L [facility] CHLORIDE 103 96 - 108 mmol/L [facility] CO2 27 21 - 35 mmol/L [facility] BUN 15 6 - 19 mg/dL [facility] CREATININE 0.50 0.5 - 1.5 mg/dL [facility] GLUCOSE 91 70 - 99 mg/dL [facility] ALBUMIN 3.0(L) 3.9 - 4.8 g/dL [facility] TOTAL PROTEIN 5.5(L) 6.5 - 8.0 g/dL [facility] CALCIUM 8.6 8.4 - 10.3 mg/dL [facility] ALKALINE PHOSPHATASE 60 39 - 117 U/L [facility] TOTAL BILIRUBIN 0.7 0.0 - 1.2 mg/dL [facility] AST 17 0 - 37 U/L [facility] ALT 13 0 - 40 U/L [facility] GLOBULIN 2.5 1 - 4.8 g/dL [facility] EGFR 105 >59 mL/min/1.7 3m2 [facility] Comment:Estimated glomerular filtration rate calculated using the CKD-EPI refit equation. ANION GAP 15 10 - 20 mmol/L [facility] Blood 05/20/2025 3:23 AM EDT 05/20/2025 3:28 AM EDT Froylan Rowe CNP LAB BLOOD ORDERABLES Cara l Result Performing Organization Address [facility] Co de Phone Number [address] [phone] * TSH with reflex (05/20/2025 3:23 AM EDT) Only the most recent of2 resultswithin the time period is included. TSH 0.33 0.27 - 4.20 uIU/mL [facility] Blood 05/20/2025 3:23 AM EDT 05/20/2025 3:28 AM EDT Froylan Rowe CNP LAB BLOOD ORDERABLES Cara l Result Performing Organization Address [facility] Co de Phone Number [address] [address] * Sedimentation rate (ESR) (05/20/2025 3:23 AM EDT) ESR 18 0 - 20 mm/h [facility] Blood 05/20/2025 3:23 AM EDT 05/20/2025 3:28 AM EDT Froylan Rowe CNP LAB BLOOD ORDERABLES Cara l Result Performing Organization Address [facility] de Phone Number [address] [address] * (ABNORMAL) PT-INR (05/20/2025 3:23 AM EDT) Only the most recent of2 resultswithin the time period is included. PT 15.8(H) 10.2 - 12.9 sec [facility] INR 1.3(H) 0.9 - 1.1 [facility] Comment:Therapeutic range fo r oral Vitamin K antagonists: 2.0-3.5 Blood 05/20/2025 3:23 AM EDT 05/20/2025 3:28 AM EDT us Froylan Rowe CNP LAB BLOOD ORDERABLES Cara l Result Performing Organization Address [facility] Co de Phone Number [address] [address] * (ABNORMAL) C-Reactive Protein (05/20/2025 3:23 AM EDT) Only the most recent of2 resultswithin the time period is included. C REACTIVE PROTEIN 6.4(H) 0.0 - 4.0 mg/L [facility] Blood 05/20/2025 3:23 AM EDT 05/20/2025 3:28 AM EDT us Froylan Rowe CNP LAB BLOOD ORDERABLES Cara l Result Performing Organization Address [facility] Co de Phone Number [address] [address] * NT-proBNP (05/20/2025 3:23 AM EDT) NT-PROBNP 443 0 - 450 pg/mL [facility] Blood 05/20/2025 3:23 AM EDT 05/20/2025 3:28 AM EDT us Froylan Rowe CNP LAB BLOOD ORDERABLES Cara l Result Performing Organization Address [facility] Co de Phone Number [address] [address] * US BEDSIDE (05/19/2025 10:11 AM EDT) Anatomical Region Laterality Modality Ultrasound Narrative 05/19/2025 10:11 AM EDT Froylan Rowe CNP 05/19/2025 4:30 PM Bedside Ultrasound Date/Time: 05/19/2025 10:11 AM Performed by: Froylan Rowe CNP Authorized by: Froylan Rowe CNP Exam Type: Cardiac Transthoracic Echocardiogram Cardiac Transthoracic Echocardiogram Exam Findings & Impression: Indications: patient with fluid overload Views: apical four, parasternal long, parasternal short and subxiphoid Pericardial Effusion: the pericardial space was visualized and was negative for a pericardial effusion LV Function: the heart was visualized with hyperdynamic LV function RV Size: the RV was not well visualized IVC: the IVC was not well visualized Overall Impression: positive Images: Images Saved: Yes Accession Number: [id number] us Froylan Rowe CNP IMG POINT OF CARE EXAMS F inal Result * (ABNORMAL) POCT Glucose (05/19/2025 8:23 AM EDT) Only the most recent of2 resultswithin the time period is included. Pathologist [facility] Glucose, POCT 127(H) 70 - 100 mg/dL [facility] 05/19/2025 8:23 AM EDT 05/19/2025 8:24 AM EDT us Criselda Mckeon MD POINT OF CARE TEST ORDERABLES Final Result [address] [address] * (ABNORMAL) Arterial blood gas (05/19/2025 7:23 AM EDT) [facility] pH, Arterial 7.35 7.35 - 7.45 [facility] PCO2, Arterial 59.20(HH) 35.00 - 45.00 mmHg [facility] Comment: Critical value: Results called to and read back by: KAELYN DIAS [id number] PO2, Arterial 114.70(H) 80.00 - 105.00 mmHg [facility] HCO3, unspecified 32(H) 22 - 26 mmol/L [facility] BASE EXCESS ARTERIAL 5.0(H) 0.0 - 3.0 mmol/L [facility] SO2, unspecified 98.20(H) 95.00 - 98.00 % [facility] FO2HB BLOOD GAS 97.10 94.00 - 100.00 % [facility] Carboxy Hgb 1.00 0 - 1.50 % [facility] MetHgb % 0.10 0 - 1.50 % [facility] Girma's Test Positive [facility] ABG site RR [facility] FIO2 NA FIO2/L min [facility] OXYGEN LITERS/MIN 5LPM [facility] 05/19/2025 7:23 AM EDT 05/19/2025 7:28 AM EDT us Steven Calvin PA-C, MS LAB BLOOD ORDERABLES nal Result Performing Organization Address [facility] de Phone Number [address] [address] * (ABNORMAL) C-reactive protein, high sensitivity (05/19/2025 3:30 AM EDT) CRP, HIGH SENSITIVITY 6.0(H) 0.0 - 5.0 mg/L [facility] Comment: Interpretation: hsCRP level (mg/L) Relative Risk <1.0 Low 1.0 - 3.0 Average >3.0 High Neonates (0-3 weeks): 0.1 - 4.1 mg/L Children (2 months - 15 years): 0.1 - 2.8 mg/L Blood 05/19/2025 3:30 AM EDT 05/19/2025 3:34 AM EDT us Steven Calvin PA-C, MS LAB BLOOD ORDERABLES nal Result Performing Organization Address [facility] Co de Phone Number [address] [address] * (ABNORMAL) LFTs (hepatic panel) (05/19/2025 3:30 AM EDT) Only the most recent of2 resultswithin the time period is included. ALKALINE PHOSPHATASE 65 39 - 117 U/L [facility] TOTAL BILIRUBIN 0.7 0.0 - 1.2 mg/dL [facility] DIRECT BILIRUBIN 0.3(H) 0.0 - 0.2 mg/dL [facility] Bilirubin (Indirect) 0.4 0 - 1.5 mg/dL [facility] AST 26 0 - 37 U/L [facility] ALT 13 0 - 40 U/L [facility] TOTAL PROTEIN 5.6(L) 6.5 - 8.0 g/dL [facility] ALBUMIN 3.1(L) 3.9 - 4.8 g/dL [facility] GLOBULIN 2.5 1 - 4.8 g/dL [facility] A/G Ratio 1.24 1.00 - 4.80 RATIO [facility] Blood 05/19/2025 3:30 AM EDT 05/19/2025 3:34 AM EDT us Steven Calvin PA-C, LAB BLOOD ORDERABLES Fi nal Result Performing Organization Address City/State/[facility] Co de Phone Number [address] [address] * GENERIC BEDSIDE PROCEDURE (05/19/2025 2:52 AM EDT) Narrative Steven Calvin PA-C, - 05/19/2025 2:52 AM EDT Steven Calvin PA-C, MS 05/19/2025 2:55 AM Bedside EEG Date/Time: 05/19/2025 2:52 AM Performed by: Steven Calvin PA-C, [place] Authorized by: Steven Calvin PA-C, [place] Protocol: Emergent situation A time out verifies correct patient, procedure, equipment and site/side marked as required: Procedure Details: [facility] Ceribell Note Date: 05/19/2025 Time: 2:53 AM Reason for Ceribell use: Convulsive behavior and altered mental status Duration of Exam: 120 minutes [email or web address] Seizure [place]: 0% = Low Concern for Seizure Plan: Continue monitoring in ICU Procedure Successful: Yes Post-procedure: Patient tolerance: Patient tolerated the procedure well with no immediate complications us Steven Calvin PA-C, PROCEDURE/MINOR SURGICA L ORDERABLES Final Result * MRSA PCR SCREEN (05/18/2025 10:41 PM EDT) [facility] MRSA PCR SCREEN Negative Negative [facility] Comment:The Xpert MRSA Assay is intended to aid in the prevention and control of MRSA infections in healthcare settings. The assay is not intended to diagnose nor to guide or monitor treatment for MRSA infections. Other (Nasal) 05/18/2025 10: 41 PM EDT 05/19/2025 12:25 AM EDT us Steven Calvin PA-C, MS NON CULTURE MICROBIOLOG Y Final Result [facility] [address], [place] [id number] * MENINGITIS ENCEPHALITIS PANEL, PCR, CSF (05/18/2025 7:37 PM EDT) [facility] Specimen Source CEREBROSPINAL FLUID [facility] PAT+ Escherichia coli K1 Negative Negative [facility] Haemophilus influenzae Negative Negative [facility] PAT+ Listeria monocytogenes Negative Negative [facility] AND PAT+ Neisseria meningitidis Negative Negative [facility]+ Streptococcus agalactiae Negative Negative [facility] PAT+ Streptococcus pneumoniae Negative Negative [facility] PAT+ Cytomegalovirus Negative Negative [facility] AND PAT+ [facility]ovirus Negative Negative [facility] PAT+ Herpes Simplex Virus 1 Negative Negative [facility] PAT+ Comment: (NOTE) Testing of spinal fluid for HSV-1/2 by another molecular method is recommended if clinical suspicion is high. Herpes Simplex Virus 2 Negative Negative [facility] PAT+ Comment: (NOTE) Testing of spinal fluid for HSV-1/2 by another molecular method is recommended if clinical suspicion is high. Human Herpes Virus 6 Negative Negative [facility] AND PAT+ Human Parechovirus Negative Negative [facility] DPT OF LAB MED AND PAT+ Varicella Zoster Virus Negative Negative [facility] PAT+ Cryptococcus neoformans/gattii Negative Negative [facility]+ Comment: (NOTE) Testing of spinal fluid for cryptococcal antigen is recommended if clinical suspicion is high. ADDITIONAL INFORMATION This assay is performed using the FDA-cleared [employer] Meningitis/Encephalitis (ME) Panel ([employer] Interpretation Test component not applicable or not reported. [facility] PAT+ Cerebrospinal Fluid (Cerebrospinal Fluid) 05/18/2025 7:37 PM EDT 05/18/2025 7:57 PM EDT Milvia Ayers MD BODY FLUIDS AND STOOLS OR DERABLES Final Result Performing Organization Address City/[facility]/ZIP Co de Phone Number [facility] AND PAT+ [address] [place] [address] * (ABNORMAL) Cell count & differential, tube 4 (05/18/2025 6:40 PM EDT) Pathologist [facility] CSF COLOR Colorless Colorless [facility] CSF TURBIDITY Clear Clear [facility] Nucleated cells, CSF 1 0 - 5 /uL [facility] Comment:Cell count less than 5, differential not done. RBC, CSF 839(H) 0 - 10 /uL [facility] Tube #, CSF 4 [facility] Cerebrospinal Fluid (Cerebrospinal Fluid) 05/18/2025 6:40 PM EDT 05/18/2025 6:57 PM EDT Vance Finney PA-C BODY FLUIDS AND STOOLS ORDERA BLES Final Result Performing Organization Address City/[facility]/ZIP Co de Phone Number [facility] [address] [place] [address] * Lyme disease PCR, non-blood (05/18/2025 6:40 PM EDT) Pathologist [facility] SPECIMEN SOURCE CSF, TUBE 4, NO SPIN [facility] D[facility] PAT+ B.BURGDORFERI PCR Negative Negative [facility] DPT OF LAB MED AND PAT+ B.MAYONII PCR Negative Negative [facility] DPT OF LAB MED AND PAT+ B.GARINII/AFZELI Negative Negative [facility] DPT OF LAB MED AND PAT+ Comment SEE NOTE [facility] DPT OF LAB MED AND PAT+ Comment: (NOTE) If clinical features of illness are highly indicative of Lyme neuroborreliosis, additional serological testing would be recommended. ADDITIONAL INFORMATION This test was developed and its performance characteristics determined by [facility] in a manner consistent with CLIA requirements. This test has not been cleared or approved by the U.S. Food and Drug Administration. 05/18/2025 6:40 PM EDT 05/18/2025 7:12 PM EDT Vance Finney PA-C BODY FLUIDS AND STOOLS ORDERA BLES Final Result Performing Organization Address City/[facility]/ZIP Co de Phone Number [facility] [address] [place] [address] * CSF Culture/Gram Stain (05/18/2025 6:40 PM EDT) Special Requests None 05/18/2025 6:40 PM EDT [facility] GRAM STAIN Rare WBC'S , NO ORGANISMS SEEN 05/18/2025 8:09 PM EDT [facility] CSF Culture/Smear NO GROWTH 48HRS 05/20/2025 8:16 AM EDT [facility] Cerebrospinal Fluid (Cerebrospinal Fluid) 05/18/2025 6:40 PM EDT 05/18/2025 6:57 PM EDT us Vance Finney PA-C MICROBIOLOGY - GENERAL ORDERA BLES Final Result Performing Organization Address City/[facility]/ZIP Co de Phone Number [facility] [address] [place] [address] * (ABNORMAL) Cell count/differential, CSF (05/18/2025 6:40 PM EDT) CSF COLOR PINK(A) Colorless [facility] CSF TURBIDITY HAZY(A) Clear [facility] Nucleated cells, CSF 0 0 - 5 /uL [facility] Comment:Cell count less than 5, differential not done. RBC, CSF 1,494(H) 0 - 10 /uL [facility] Tube #, CSF 1 [facility] Cerebrospinal Fluid (Cerebrospinal Fluid) 05/18/2025 6:40 PM EDT 05/18/2025 6:56 PM EDT Vance Finney PA-C BODY FLUIDS AND STOOLS ORDERA BLES Final Result Performing Organization Address [facility] Co de Phone Number [address] [address] * Total protein, CSF (05/18/2025 6:40 PM EDT) CSF PROTEIN 32.4 15.0 - 45.0 mg/dL [facility] Cerebrospinal Fluid (Cerebrospinal Fluid) 05/18/2025 6:40 PM EDT 05/18/2025 6:56 PM EDT Vance OCHOA-C BODY FLUIDS AND STOOLS ORDERA BLES Final Result Performing Organization Address [facility] Co de Phone Number [address] [address] * (ABNORMAL) Glucose, CSF (05/18/2025 6:40 PM EDT) CSF GLUCOSE 79(H) 45 - 70 mg/dL [facility] Cerebrospinal Fluid (Cerebrospinal Fluid) 05/18/2025 6:40 PM EDT 05/18/2025 6:56 PM EDT Vance Fineny PA-C BODY FLUIDS AND STOOLS ORDERA BLES Final Result Performing Organization Address [facility] Co de Phone Number [address] [address] * LUMBAR PUNCTURE (IR) (05/18/2025 6:28 PM EDT) Anatomical Region Laterality Modality X-Ray Angiograph y Impressions 05/18/2025 6:54 PM EDT Fluoroscopically guided lumbar puncture performed as described with small quantity CSF retrieved for evaluation. Fluoroscopy time: 2.3 minutes, DAP (dose area product) 1916 microgray/M2 Narrative 05/18/2025 6:54 PM EDT History: Agitation. Fever. Suppressed mental status. Elevated lactate. Question meningitis. Due to patient agitation and large size fluoro guided lumbar puncture requested. PROCEDURE: Medications: IV Midazolam 6 mg Subcutaneous buffered 1% lidocaine 5 cc Procedure challenging due to the patient's size and agitation. Frequent spastic movements of the patient. Multiple staff members required to maintain stable position on the table; therefore, only intermittent fluoroscopy was available. Following sterile prep of the skin overlying the lumbar spine and placement of local anesthetic, 20-gauge spinal needle advanced into the thecal sac at the L3-4 level. Mildly blood-tinged CSF encountered, most likely related to traumatic tap. Low pressure CSF. Opening pressure not obtainable. Small quantity of CSF was retrievable with aspiration allowing for retrieval of approximate 4 cc total CSF divided between 4 vials. Last vial was clearer than the first vial supporting impression that mild red tingeing of fluid was related to procedure as opposed to pre-existing hemorrhage. Stylet replaced and needle removed. Bandage applied to the skin. Procedure well tolerated. No immediate complication. FINDINGS: Single spot film of the LS-spine at time of needle placement shows spinal needle was directed toward the central canal at the L3-4 level tip within the midline. No concerning incidental abnormality. us Vance Finney PA-C IMG IR Final Result * (ABNORMAL) Lactate (05/18/2025 5:31 PM EDT) Only the most recent of3 resultswithin the time period is included. LACTATE 2.25(H) 0.50 - 2.20 mmol/L [facility] Blood 05/18/2025 5:31 PM EDT 05/18/2025 5:48 PM EDT us Vance Finney PA-C LAB BLOOD ORDERABLES Final Re sult [address] [address] * CT CHEST WITH CONTRAST (05/18/2025 5:00 PM EDT) Anatomical Region Laterality Modality Chest Computed Tomogra phy 05/18/2025 5:39 PM EDT Addenda Addendum by Leonila Rios MD on 05/29/2025 8:00 AM EDT ADDENDUM: The technique should read: Multidetector-row CTs of the chest, abdomen and pelvis was performed with intravenous contrast using tailored dose modulation techniques. Images were reconstructed in the axial, coronal, and sagittal planes. Impressions 05/18/2025 5:57 PM EDT No acute abnormality in the chest, abdomen, or pelvis. Narrative 05/18/2025 5:[address] CHEST WITH CONTRAST, CT ABDOMEN/PELVIS WITH CONTRAST Referring clinician's provided indication for this examination in Epic: * Sepsis TECHNIQUE: Multidetector-row CTs of the chest, abdomen and pelvis was performed without intravenous contrast using tailored dose modulation techniques. Images were reconstructed in the axial, coronal, and sagittal planes. COMPARISON: None FINDINGS: CHEST: Devices/Tubes/Lines: None. Lungs: No pulmonary nodules or consolidation. The airways are clear. Pleura: No pleural effusion or pneumothorax. Mediastinum: No thyroid nodules. Heart and pericardium are normal. Severe amount of coronary calcifications. Lymph Nodes: No enlarged supraclavicular, axillary, mediastinal, or hilar lymph nodes. Chest Wall: No chest wall mass. Bones/Soft Tissues: There are chronic appearing posterior fractures of the right eighth through 12th ribs and the left anterolateral sixth and seventh ribs. There is a 1.0 cm focus of sclerosis in the T5 vertebral body. ABDOMEN/PELVIS: Liver: No focal lesions. Biliary: The gallbladder is distended without radiodense gallstones or pericholecystic edema. No biliary ductal dilatation. Spleen: No splenomegaly or focal lesions. Pancreas: Atrophic pancreatic parenchyma. No pancreatic ductal dilatation. Adrenal Glands: No nodules. Kidneys/Ureters: No solid masses, stones, or hydronephrosis. Bowel: Appendix not visualized, no secondary signs of appendicitis. Normal small bowel and colon. Peritoneum/Retroperitoneum: No masses, pneumoperitoneum, or fluid. Lymph Nodes: No lymphadenopathy. Pelvic Organs/Bladder: No mass. Vessels: No abdominal aortic aneurysm. Bones/Soft Tissues: No significant abnormality. Procedure Note Lenoila Rios MD - 05/18/2025 CT CHEST WITH CONTRAST, CT ABDOMEN/PELVIS WITH CONTRAST Referring clinician's provided indication for this examination in Epic: *Sepsis TECHNIQUE: Multidetector-row CTs of the chest, abdomen and pelvis was performedwithout intravenous contrast using tailored dose modulation techniques.Images were reconstructed in the axial, coronal, and sagittal planes. COMPARISON: None FINDINGS: CHEST: Devices/Tubes/Lines: None. Lungs: No pulmonary nodules or consolidation. The airways are clear. Pleura: No pleural effusion or pneumothorax. Mediastinum: No thyroid nodules. Heart and pericardium are normal. Severeamount of coronary calcifications. Lymph Nodes: No enlarged supraclavicular, axillary, mediastinal, or hilarlymph nodes. Chest Wall: No chest wall mass. Bones/Soft Tissues: There are chronic appearing posterior fractures of theright eighth through 12th ribs and the left anterolateral sixth andseventh ribs. There is a 1.0 cm focus of sclerosis in the T5 vertebralbody. ABDOMEN/PELVIS: Liver: No focal lesions. Biliary: The gallbladder is distended without radiodense gallstones orpericholecystic edema. No biliary ductal dilatation. Spleen: No splenomegaly or focal lesions. Pancreas: Atrophic pancreatic parenchyma. No pancreatic ductal dilatation. Adrenal Glands: No nodules. Kidneys/Ureters: No solid masses, stones, or hydronephrosis. Bowel: Appendix not visualized, no secondary signs of appendicitis. Normalsmall bowel and colon. Peritoneum/Retroperitoneum: No masses, pneumoperitoneum, or fluid. Lymph Nodes: No lymphadenopathy. Pelvic Organs/Bladder: No mass. Vessels: No abdominal aortic aneurysm. Bones/Soft Tissues: No significant abnormality. IMPRESSION: No acute abnormality in the chest, abdomen, or pelvis. Vance S Reg TROTTER IMG CT CHEST Edited Result - Final * CT ABDOMEN/PELVIS WITH CONTRAST (05/18/2025 5:00 PM EDT) Anatomical Region Laterality Modality Abdomen, Pelvis Computed Tomogra phy 05/18/2025 5:39 PM EDT Addenda Addendum by Leonila Rios MD on 05/29/2025 8:00 AM EDT ADDENDUM: The technique should read: Multidetector-row CTs of the chest, abdomen and pelvis was performed with intravenous contrast using tailored dose modulation techniques. Images were reconstructed in the axial, coronal, and sagittal planes. Impressions 05/18/2025 5:57 PM EDT No acute abnormality in the chest, abdomen, or pelvis. Narrative 05/18/2025 5:[address] CHEST WITH CONTRAST, CT ABDOMEN/PELVIS WITH CONTRAST Referring clinician's provided indication for this examination in Epic: * Sepsis TECHNIQUE: Multidetector-row CTs of the chest, abdomen and pelvis was performed without intravenous contrast using tailored dose modulation techniques. Images were reconstructed in the axial, coronal, and sagittal planes. COMPARISON: None FINDINGS: CHEST: Devices/Tubes/Lines: None. Lungs: No pulmonary nodules or consolidation. The airways are clear. Pleura: No pleural effusion or pneumothorax. Mediastinum: No thyroid nodules. Heart and pericardium are normal. Severe amount of coronary calcifications. Lymph Nodes: No enlarged supraclavicular, axillary, mediastinal, or hilar lymph nodes. Chest Wall: No chest wall mass. Bones/Soft Tissues: There are chronic appearing posterior fractures of the right eighth through 12th ribs and the left anterolateral sixth and seventh ribs. There is a 1.0 cm focus of sclerosis in the T5 vertebral body. ABDOMEN/PELVIS: Liver: No focal lesions. Biliary: The gallbladder is distended without radiodense gallstones or pericholecystic edema. No biliary ductal dilatation. Spleen: No splenomegaly or focal lesions. Pancreas: Atrophic pancreatic parenchyma. No pancreatic ductal dilatation. Adrenal Glands: No nodules. Kidneys/Ureters: No solid masses, stones, or hydronephrosis. Bowel: Appendix not visualized, no secondary signs of appendicitis. Normal small bowel and colon. Peritoneum/Retroperitoneum: No masses, pneumoperitoneum, or fluid. Lymph Nodes: No lymphadenopathy. Pelvic Organs/Bladder: No mass. Vessels: No abdominal aortic aneurysm. Bones/Soft Tissues: No significant abnormality. Procedure Note Leonila Rios MD - 05/18/2025 CT CHEST WITH CONTRAST, CT ABDOMEN/PELVIS WITH CONTRAST Referring clinician's provided indication for this examination in Epic: *Sepsis TECHNIQUE: Multidetector-row CTs of the chest, abdomen and pelvis was performedwithout intravenous contrast using tailored dose modulation techniques.Images were reconstructed in the axial, coronal, and sagittal planes. COMPARISON: None FINDINGS: CHEST: Devices/Tubes/Lines: None. Lungs: No pulmonary nodules or consolidation. The airways are clear. Pleura: No pleural effusion or pneumothorax. Mediastinum: No thyroid nodules. Heart and pericardium are normal. Severeamount of coronary calcifications. Lymph Nodes: No enlarged supraclavicular, axillary, mediastinal, or hilarlymph nodes. Chest Wall: No chest wall mass. Bones/Soft Tissues: There are chronic appearing posterior fractures of theright eighth through 12th ribs and the left anterolateral sixth andseventh ribs. There is a 1.0 cm focus of sclerosis in the T5 vertebralbody. ABDOMEN/PELVIS: Liver: No focal lesions. Biliary: The gallbladder is distended without radiodense gallstones orpericholecystic edema. No biliary ductal dilatation. Spleen: No splenomegaly or focal lesions. Pancreas: Atrophic pancreatic parenchyma. No pancreatic ductal dilatation. Adrenal Glands: No nodules. Kidneys/Ureters: No solid masses, stones, or hydronephrosis. Bowel: Appendix not visualized, no secondary signs of appendicitis. Normalsmall bowel and colon. Peritoneum/Retroperitoneum: No masses, pneumoperitoneum, or fluid. Lymph Nodes: No lymphadenopathy. Pelvic Organs/Bladder: No mass. Vessels: No abdominal aortic aneurysm. Bones/Soft Tissues: No significant abnormality. IMPRESSION: No acute abnormality in the chest, abdomen, or pelvis. Vance Finney PA-C IMG CT ABD/PELVIS Edited Resu lt - Final * CT ANGIO HEAD WITH CONTRAST, CT ANGIO NECK WITH CONTRAST (05/18/2025 4:58 PM EDT) Anatomical Region Laterality Modality Neck Computed Tomogra phy 05/18/2025 5:35 PM EDT Impressions 05/18/2025 5:46 PM EDT 1. No acute intracranial findings on noncontrast head CT. Consider further evaluation with MRI. No focal symptoms persist. 2. No large vessel occlusion, high-grade stenosis, aneurysm or dissection in the head or neck within the limitations of motion degradation. Narrative 05/18/2025 5:[address] HEAD WITHOUT CONTRAST, CT ANGIO HEAD WITH CONTRAST, CT ANGIO NECK WITH CONTRAST Referring clinician's provided indication for this examination in Epic: * Delirium; * Mental status change, unknown cause TECHNIQUE: * CTA of the head was performed before and after administration of intravenous contrast using tailored dose modulation techniques. Images were reconstructed in the axial, coronal, and sagittal planes, including angiographic image post-processing. 3D angiographic images with reformatting and post-processing reconstructions were performed and interpreted. * CTA of the neck was performed after administration of intravenous contrast using tailored dose modulation techniques. Images were reconstructed in the axial, coronal, and sagittal planes. 3D angiographic images with reformatting and post- processing reconstructions were performed and interpreted. COMPARISON: None available FINDINGS: CT HEAD: Brain Parenchyma: No midline shift, mass effect, parenchymal hemorrhage, or evidence of acute territorial infarct. Hypodensities in the periventricular white matter, likely a manifestation of chronic small vessel disease. Ventricular System and Extra-Axial Spaces: The ventricles and sulci are prominent. No extra-axial fluid collections. Basilar cisterns are patent. No hydrocephalus. Osseous and Extracranial Structures: No calvarial fracture or significant soft tissue hematoma. A mucosal retention cyst/polyp in the left maxillary sinus. Bilateral lens replacements. CTA HEAD: Limited evaluation due to motion degradation. No aneurysm or arteriovenous malformation. Intracranial internal carotid arteries: No occlusion or high grade stenosis. Anterior cerebral arteries: No occlusion or high grade stenosis. Middle cerebral arteries: No occlusion or high grade stenosis. Vertebrobasilar system: No occlusion or high grade stenosis. Posterior cerebral arteries: No occlusion or high grade stenosis. Venous: No dural sinus thrombosis. CTA NECK: Motion degraded study limiting optimal evaluation. Aortic Arch and Branch Vessel Origins: Normal branching anatomy. No high grade stenosis. Right Carotid Artery: No occlusion, high grade stenosis or dissection. Limited evaluation due to motion degradation. Left Carotid Artery: No occlusion, high grade stenosis or dissection. Limited evaluation due to motion degradation. Right Vertebral Artery: No occlusion, high grade stenosis or dissection. Limited evaluation due to motion degradation. Left Vertebral Artery: No occlusion, high grade stenosis or dissection. Limited evaluation due to motion degradation. Venous structures: The jugular veins enhance normally. NON-VASCULAR FINDINGS: Lungs and Airways: No acute abnormality. Soft tissues: No adenopathy. Bones: Degenerative changes of the cervical spine. Sclerotic focus at T5. Ectasia of the ascending thoracic aorta measuring 4 cm in diameter. Procedure Note Tyler Todd, DANYEL - 05/18/2025 CT HEAD WITHOUT CONTRAST, CT ANGIO HEAD WITH CONTRAST, CT ANGIO NECK WITHCONTRAST Referring clinician's provided indication for this examination in [facility]: *Delirium; * Mental status change, unknown cause TECHNIQUE: * CTA of the head was performed before and after administration ofintravenous contrast using tailored dose modulation techniques. Imageswere reconstructed in the axial, coronal, and sagittal planes, includingangiographic image post- processing. 3D angiographic images withreformatting and post-processing reconstructions were performed andinterpreted. * CTA of the neck was performed after administration of intravenouscontrast using tailored dose modulation techniques. Images werereconstructed in the axial, coronal, and sagittal planes. 3D angiographicimages with reformatting and post-processing reconstructions wereperformed and interpreted. COMPARISON: None available FINDINGS: CT HEAD: Brain Parenchyma: No midline shift, mass effect, parenchymal hemorrhage,or evidence of acute territorial infarct. Hypodensities in theperiventricular white matter, likely a manifestation of chronic smallvessel disease. Ventricular System and Extra-Axial Spaces: The ventricles and sulci areprominent. No extra-axial fluid collections. Basilar cisterns are patent.No hydrocephalus. Osseous and Extracranial Structures: No calvarial fracture or significantsoft tissue hematoma. A mucosal retention cyst/polyp in the left maxillarysinus. Bilateral lens replacements. CTA HEAD: Limited evaluation due to motion degradation. No aneurysm or arteriovenous malformation. Intracranial internal carotid arteries: No occlusion or high gradestenosis. Anterior cerebral arteries: No occlusion or high grade stenosis. Middle cerebral arteries: No occlusion or high grade stenosis. Vertebrobasilar system: No occlusion or high grade stenosis. Posterior cerebral arteries: No occlusion or high grade stenosis. Venous: No dural sinus thrombosis. CTA NECK: Motion degraded study limiting optimal evaluation. Aortic Arch and Branch Vessel Origins: Normal branching anatomy. No highgrade stenosis. Right Carotid Artery: No occlusion, high grade stenosis or dissection.Limited evaluation due to motion degradation. Left Carotid Artery: No occlusion, high grade stenosis or dissection.Limited evaluation due to motion degradation. Right Vertebral Artery: No occlusion, high grade stenosis or dissection.Limited evaluation due to motion degradation. Left Vertebral Artery: No occlusion, high grade stenosis or dissection.Limited evaluation due to motion degradation. Venous structures: The jugular veins enhance normally. NON-VASCULAR FINDINGS: Lungs and Airways: No acute abnormality. Soft tissues: No adenopathy. Bones: Degenerative changes of the cervical spine. Sclerotic focus atT5. Ectasia of the ascending thoracic aorta measuring 4 cm in diameter. IMPRESSION: 1. No acute intracranial findings on noncontrast head CT. Considerfurther evaluation with MRI. No focal symptoms persist. 2. No large vessel occlusion, high-grade stenosis, aneurysm or dissectionin the head or neck within the limitations of motion degradation. Vance Finney PA-C IM CT HEAD/NECK Final Result * CT HEAD WITHOUT CONTRAST (05/18/2025 4:58 PM EDT) Anatomical Region Laterality Modality Head Computed Tomogra phy 05/18/2025 5:35 PM EDT Impressions 05/18/2025 5:46 PM EDT 1. No acute intracranial findings on noncontrast head CT. Consider further evaluation with MRI. No focal symptoms persist. 2. No large vessel occlusion, high-grade stenosis, aneurysm or dissection in the head or neck within the limitations of motion degradation. Narrative 05/18/2025 5:[address] HEAD WITHOUT CONTRAST, CT ANGIO HEAD WITH CONTRAST, CT ANGIO NECK WITH CONTRAST Referring clinician's provided indication for this examination in Epic: * Delirium; * Mental status change, unknown cause TECHNIQUE: * CTA of the head was performed before and after administration of intravenous contrast using tailored dose modulation techniques. Images were reconstructed in the axial, coronal, and sagittal planes, including angiographic image post-processing. 3D angiographic images with reformatting and post-processing reconstructions were performed and interpreted. * CTA of the neck was performed after administration of intravenous contrast using tailored dose modulation techniques. Images were reconstructed in the axial, coronal, and sagittal planes. 3D angiographic images with reformatting and post- processing reconstructions were performed and interpreted. COMPARISON: None available FINDINGS: CT HEAD: Brain Parenchyma: No midline shift, mass effect, parenchymal hemorrhage, or evidence of acute territorial infarct. Hypodensities in the periventricular white matter, likely a manifestation of chronic small vessel disease. Ventricular System and Extra-Axial Spaces: The ventricles and sulci are prominent. No extra-axial fluid collections. Basilar cisterns are patent. No hydrocephalus. Osseous and Extracranial Structures: No calvarial fracture or significant soft tissue hematoma. A mucosal retention cyst/polyp in the left maxillary sinus. Bilateral lens replacements. CTA HEAD: Limited evaluation due to motion degradation. No aneurysm or arteriovenous malformation. Intracranial internal carotid arteries: No occlusion or high grade stenosis. Anterior cerebral arteries: No occlusion or high grade stenosis. Middle cerebral arteries: No occlusion or high grade stenosis. Vertebrobasilar system: No occlusion or high grade stenosis. Posterior cerebral arteries: No occlusion or high grade stenosis. Venous: No dural sinus thrombosis. CTA NECK: Motion degraded study limiting optimal evaluation. Aortic Arch and Branch Vessel Origins: Normal branching anatomy. No high grade stenosis. Right Carotid Artery: No occlusion, high grade stenosis or dissection. Limited evaluation due to motion degradation. Left Carotid Artery: No occlusion, high grade stenosis or dissection. Limited evaluation due to motion degradation. Right Vertebral Artery: No occlusion, high grade stenosis or dissection. Limited evaluation due to motion degradation. Left Vertebral Artery: No occlusion, high grade stenosis or dissection. Limited evaluation due to motion degradation. Venous structures: The jugular veins enhance normally. NON-VASCULAR FINDINGS: Lungs and Airways: No acute abnormality. Soft tissues: No adenopathy. Bones: Degenerative changes of the cervical spine. Sclerotic focus at T5. Ectasia of the ascending thoracic aorta measuring 4 cm in diameter. Procedure Note Tyler Todd, DANYEL - 05/18/2025 CT HEAD WITHOUT CONTRAST, CT ANGIO HEAD WITH CONTRAST, CT ANGIO NECK WITHCONTRAST Referring clinician's provided indication for this examination in Epic: *Delirium; * Mental status change, unknown cause TECHNIQUE: * CTA of the head was performed before and after administration ofintravenous contrast using tailored dose modulation techniques. Imageswere reconstructed in the axial, coronal, and sagittal planes, includingangiographic image post- processing. 3D angiographic images withreformatting and post-processing reconstructions were performed andinterpreted. * CTA of the neck was performed after administration of intravenouscontrast using tailored dose modulation techniques. Images werereconstructed in the axial, coronal, and sagittal planes. 3D angiographicimages with reformatting and post-processing reconstructions wereperformed and interpreted. COMPARISON: None available FINDINGS: CT HEAD: Brain Parenchyma: No midline shift, mass effect, parenchymal hemorrhage,or evidence of acute territorial infarct. Hypodensities in theperiventricular white matter, likely a manifestation of chronic smallvessel disease. Ventricular System and Extra-Axial Spaces: The ventricles and sulci areprominent. No extra-axial fluid collections. Basilar cisterns are patent.No hydrocephalus. Osseous and Extracranial Structures: No calvarial fracture or significantsoft tissue hematoma. A mucosal retention cyst/polyp in the left maxillarysinus. Bilateral lens replacements. CTA HEAD: Limited evaluation due to motion degradation. No aneurysm or arteriovenous malformation. Intracranial internal carotid arteries: No occlusion or high gradestenosis. Anterior cerebral arteries: No occlusion or high grade stenosis. Middle cerebral arteries: No occlusion or high grade stenosis. Vertebrobasilar system: No occlusion or high grade stenosis. Posterior cerebral arteries: No occlusion or high grade stenosis. Venous: No dural sinus thrombosis. CTA NECK: Motion degraded study limiting optimal evaluation. Aortic Arch and Branch Vessel Origins: Normal branching anatomy. No highgrade stenosis. Right Carotid Artery: No occlusion, high grade stenosis or dissection.Limited evaluation due to motion degradation. Left Carotid Artery: No occlusion, high grade stenosis or dissection.Limited evaluation due to motion degradation. Right Vertebral Artery: No occlusion, high grade stenosis or dissection.Limited evaluation due to motion degradation. Left Vertebral Artery: No occlusion, high grade stenosis or dissection.Limited evaluation due to motion degradation. Venous structures: The jugular veins enhance normally. NON-VASCULAR FINDINGS: Lungs and Airways: No acute abnormality. Soft tissues: No adenopathy. Bones: Degenerative changes of the cervical spine. Sclerotic focus atT5. Ectasia of the ascending thoracic aorta measuring 4 cm in diameter. IMPRESSION: 1. No acute intracranial findings on noncontrast head CT. Considerfurther evaluation with MRI. No focal symptoms persist. 2. No large vessel occlusion, high-grade stenosis, aneurysm or dissectionin the head or neck within the limitations of motion degradation. us Vance Finney PA-C IMG CT HEAD/NECK Final Result * Blood Culture, Routine (05/18/2025 3:45 PM EDT) Only the most recent of2 resultswithin the time period is included. Special Requests None 05/18/2025 1:52 PM EDT [facility] BLOOD CULTURE NO GROWTH 5 DAYS 05/23/2025 4:24 PM EDT [facility] Blood (Blood) 05/18/2025 3:4 5 PM EDT 05/18/2025 4:06 PM EDT us Vance Finney PA-C MICROBIOLOGY - GENERAL ORDERA BLES Final Result [facility] [address] [place] [address] * Ethanol, blood (05/18/2025 2:48 PM EDT) ETHANOL <10 <10 mg/dL [facility] Blood 05/18/2025 2:48 PM EDT 05/18/2025 2:55 PM EDT us Vance Finney PA-C LAB BLOOD ORDERABLES Final Re sult Performing Organization Address City/[facility]/ZIP Co de Phone Number [address] [address] * Lab Add On: CRP (05/18/2025 2:48 PM EDT) TEST REQUESTED CRP [facility] Comments (Chemistry) Add on order being processed. Floor or provider will be notified if testing cannot be performed [facility] 05/18/2025 2:48 PM EDT 05/18/2025 2:55 PM EDT Vance Finney PA-C LAB BLOOD ORDERABLES Final Re sult Performing Organization Address [facility] Co de Phone Number [address] [address] * (ABNORMAL) Ammonia (05/18/2025 2:48 PM EDT) AMMONIA 18(L) 28 - 80 umol/L [facility] Blood 05/18/2025 2:48 PM EDT 05/18/2025 2:55 PM EDT Vance OCHOA-Cooper LAB BLOOD ORDERABLES Final Re sult Performing Organization Address [facility] Co de Phone Number [address] [address] * ECG 12-LEAD (05/18/2025 2:28 PM EDT) Only the most recent of2 resultswithin the time period is included. Ventricular Rate EKG/MIN 148 BPM [facility] Atrial Rate 375 BPM [facility] QRS Duration 90 ms [facility] QT Interval 318 ms [facility] QTC Interval 499 ms [facility] R Wave [place] 7 degrees [facility] T Wave [place] 132 degrees [facility] 05/18/2025 2:28 PM EDT 05/19/2025 7:33 PM EDT Narrative [facility] - 05/19/2025 7:33 PM EDT Critical Test Result: High HR Atrial fibrillation with rapid ventricular response ST & T wave abnormality, consider anterior ischemia Abnormal ECG When compared with ECG of 18-May-2025 12:05, Previous ECG has undetermined rhythm, needs review QRS duration has decreased ST depression has replaced ST elevation in Inferior leads T wave inversion no longer evident in Lateral leads Confirmed by Germán BEGUM ([id number]) on 05/19/2025 7:33:41 PM Vance Finney PA-C ECG ORDERABLES Final Result [facility] * (ABNORMAL) Toxicology screen, urine (05/18/2025 1:54 PM EDT) Pathologist [facility] URINE CANNABINOIDS NONE DETECTED NONE DETECTED [facility] Comment:Cutoff: 50 ng/mL URINE COCAINE METAB NONE DETECTED NONE DETECTED [facility] Comment:Cutoff: 300 ng/mL URINE AMPHETAMINES NONE DETECTED NONE DETECTED [facility] Comment:Cutoff: 1000 ng/mL URINE METHADONE NONE DETECTED NONE DETECTED [facility] Comment:Cutoff: 300 ng/mL URINE OPIATES NONE DETECTED NONE DETECTED [facility] Comment:Cutoff: 300 ng/mL URINE PHENCYCLIDINE NONE DETECTED NONE DETECTED [facility] Comment:Cutoff: 25 ng/mL URINE OXYCODONE Positive(A) NONE DETECTED [facility] Comment:Cutoff: 300 ng/mL URINE BARBITURATES NONE DETECTED NONE DETECTED [facility] Comment:Cutoff: 200 ng/mL URINE BENZODIAZEPINE NONE DETECTED NONE DETECTED [facility] Comment:Cutoff: 200 ng/mL URINE BUPRENORPHINE NONE DETECTED NONE DETECTED [facility] Comment:Cutoff: 5 ng/mL Fentanyl, urine NONE DETECTED NONE DETECTED [facility] Comment: Cutoff: 5 ng/mL INTERPRETATION FOR TOXICOLOGY PANEL: These results are unconfirmed and should be used for Medical Treatment purposes only. Urine (Urine) 05/18/2025 1:5 4 PM EDT 05/18/2025 1:56 PM EDT Vance Finney PA-C URINE ORDERABLES Final Result Performing Organization Address City/[facility]/ZIP Co de Phone Number [facility] [address] [place] [address] * Bedside Ultrasound (05/18/2025 1:30 PM EDT) Vance Finney PA-C IMG POINT OF CARE EXAMS Final Result * (ABNORMAL) POCT Glucose (05/18/2025 12:15 PM EDT) Glucose 134(A) 70 - 100 mg/dL 05/18/2025 12:1 5 PM EDT Monster Wei MD, MBA POINT OF CARE TEST ORDE RABLES Final Result * Lipase (05/18/2025 12:13 PM EDT) LIPASE 19 16 - 63 U/L [facility] Blood 05/18/2025 12:1 3 PM EDT 05/18/2025 12:21 PM EDT Monster Wei MD, MBA LAB BLOOD ORDERABLES Fi nal Result Performing Organization Address City/[facility]/ZIP Co de Phone Number [address] [address] * CPK (creatine kinase) (05/18/2025 12:13 PM EDT) [facility] CREATINE KINASE 94 35 - 232 U/L [facility] 05/18/2025 12:1 3 PM EDT 05/18/2025 12:21 PM EDT [facility] MD, MBA LAB BLOOD ORDERABLES Fi nal Result Performing Organization Address [facility]/ZIP Co de Phone Number [address] [address] * (ABNORMAL) Urinalysis w/reflex Urine Culture (05/18/2025 12:09 PM EDT) COLOR Yellow Yellow [facility] CLARITY Clear [facility] GLUCOSE Negative Negative [facility] BILI Negative Negative [facility] KETONES 1+(A) Negative [facility] SPECIFIC GRAVITY 1.010 1.005 - 1.030 [facility] BLOOD Negative Negative [facility] PH 6.0 5.0 - 8.0 [facility] Protein-UA Negative Negative [facility] NITRITE Negative Negative [facility] Leukocyte esterase, ur Negative Negative [facility] Urine (Urine) 05/18/2025 12: 09 PM EDT 05/18/2025 1:42 PM EDT Monster Wei MD, ARVIND URINE ORDERABLES Final Result Performing Organization Address [facility] Co de Phone Number [address] [address] * Urine Culture (05/05/2025 1:42 PM EDT) Special Requests None 05/05/2025 1:42 PM EDT [facility] Urine Culture NO GROWTH 48HRS 05/07/2025 9:48 AM EDT [facility] Urine (Urine) 05/05/2025 1:4 2 PM EDT 05/05/2025 1:43 PM EDT Comment:[facility] Jesse Lopez MD MICROBIOLOGY - GENERAL ORDERABLE S Final Result Performing Organization Address [facility] Co de Phone Number [address] [address] * (ABNORMAL) Urine sediment (05/05/2025 1:42 PM EDT) WBC 0-4(A) NONE SEEN /hpf [facility] RBC 50-100(A) NONE SEEN /hpf [facility] URINE EPITHELIAL 0-4(A) NONE SEEN [facility] MUCUS 2+(A) NONE SEEN /hpf [facility] BACTERIA Trace(A) NONE SEEN /hpf [facility] CAST 3-5 [facility] Comment:HYALINE CAST 05/05/2025 1:42 PM EDT 05/05/2025 1:43 PM EDT us Jesse Lopez MD URINE ORDERABLES Final Result Performing Organization Address [facility] de Phone Number [address] [address] * (ABNORMAL) Urinalysis (05/05/2025 1:42 PM EDT) COLOR STRAW(A) Yellow [facility] CLARITY HAZY [facility] GLUCOSE Trace(A) Negative [facility] BILI Negative Negative [facility] KETONES 1+(A) Negative [facility] SPECIFIC GRAVITY 1.020 1.005 - 1.030 [facility] BLOOD 3+(A) Negative [facility] PH 6.0 5.0 - 8.0 [facility] Protein-UA 2+(A) Negative [facility] NITRITE Negative Negative [facility] Leukocyte esterase, ur Trace(A) Negative [facility] Urine (Urine) 05/05/2025 1:4 2 PM EDT 05/05/2025 1:43 PM EDT us Jesse Lopez MD URINE ORDERABLES Final Result Performing Organization Address [facility] de Phone Number [address] [address] from Last 3 Months Insurance MEDICARE PART A & B [facility] [employer] MEDICARE SUPPLEMENT [facility] MEDICARE SUPPLEMENT MEDICARE PART A & B [facility] MEDICARE SUPPLEMENT MEDICARE PART A & B [facility] [place] [address] MEDICARE PART A & B [employer] MEDICARE SUPPLEMENT MEDICARE PART A & B [employer] MEDICARE SUPPLEMENT [employer] Advance Directives For more information, please contact: [phone] (9AM - 5PM [facility], Saturday-Saturday) Documents on File Type Date Recorded Patient Voice Instructor Expl anation MOLST 05/25/2025 1:51 PM Healthcare Proxy 05/25/2025 1:51 PM Healthcare Proxy 05/24/2025 11:25 AM health care proxy * Full Code (Latest Code Status on File) Date Activated Date Inactivated Comments 05/18/2025 10:51 PM Question Answer Comments Code Status Confirmed With: Other (specify below ) Code Discussion Comments: MOLST form 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 It is not the complete legal health record.[facility]
[2025-06-11 14:36] LABS: Ammonia 21 umol/L (13-55)
[2025-06-11 14:50] LABS: Anion Gap 14 (12-20); Blood Urea Nitrogen 13 mg/dL (9-16); Calcium 9.5 mg/dL (8.4-10.2); Carbon Dioxide 29 mmol/L (22-29); Chloride 104 mmol/L (96-108); Estimated Glomerular Filt Rate > 60; Potassium 5.0 mmol/L (3.3-5.1); Sodium 142 mmol/L (135-145)
== END 2025-06-11 14:29 | disposition home or self-care (01) ==
LOC: HO.MMNH1L 14:28
PROVIDERS: Visit Provider Physician Assistant Medical
DX: J96.22 Acute and chronic respiratory failure with hypercapnia (principal); G92.8 Other toxic encephalopathy; J44.9 Chronic obstructive pulmonary disease, unspecified
CPT/HCPCS: 36415; 80048; 82140

== ENCOUNTER 2025-06-11 20:52 | Emergency (ER) | payer MEDICARE, SELFPAY ==
--- NOTE | 2025-06-11 | ECG_ITS ---
Test Reason : FALL Blood Pressure : */* mmHG Vent. Rate : 92 BPM Atrial Rate : * BPM P-R Int : * ms QRS Dur : 100 ms QT Int : 372 ms P-R-T Axes : * 21 -49 degrees QTcB Int : [address] & T wave abnormality, consider anterior ischemia Abnormal ECG When compared with ECG of 07-Jul-2012 12:35, Atrial fibrillation has replaced Normal sinus rhythm Referred By: Generic ED Physician Electronically Signed By: ROSENDO PERERA MD
--- NOTE | ~2025-06-11 | CT_ITS ---
CLINICAL HISTORY: fall , PT UNCOOPERATIVE, BEST POSSIBLE IMAGES OBTAINED CT of the head without intravenous contrast Comparison: None Findings: This exam was subject to excessive motion particularly at the skull base. Repeat advised. No gross hemorrhage midline shift or mass effect. Age-appropriate cerebral volume loss and microangiopathic disease. Impression: 1. Suboptimal exam due to motion repeat advised. No gross hemorrhage midline shift or mass effect. 2. Cerebral volume loss, intracranial atherosclerotic disease and mild sequela of chronic small vessel ischemic disease. This document has been electronically signed by: Rachid Bowen MD on 06/11/2025 22:53:16
--- NOTE | ~2025-06-11 | CT_ITS ---
CLINICAL HISTORY: fall CT cervical spine without intravenous contrast Comparison: None Findings: Craniocervical junction: No occipital condylar fractures. No evidence of atlantooccipital dissociation. The anterior and posterior arch and lateral masses of C1 are intact. Odontoid and atlanto-dental interval intact. The pars interarticularis of C2 is intact. There is normal vertebral body heights with no evidence of compression fracture. There is normal cervical alignment. No locked or perched facets. No spinous process fractures. Lordotic curvature is straightened The retropharyngeal soft tissues are not widened. Segmental analysis as below (MR is more accurate in the evaluation of disc herniation and central canal pathology): C2-C3: No herniation or stenosis. C3-C4: Uncovertebral body spurs and degenerative facet hypertrophy bilaterally C4-C5: Uncovertebral body spurs and degenerative facet hypertrophy bilaterally C5-C6: Uncovertebral body spurs and degenerative facet hypertrophy bilaterally C6-C7: Uncovertebral body spurs C7-T1: No herniation or stenosis. The bones are without evidence of lytic or blastic lesion. Lung apices are unremarkable. Impression: 1. Negative CT cervical spine for acute process. Motion may obscure subtle fractures. This document has been electronically signed by: Rachid Bowen MD on 06/11/2025 22:59:17
[2025-06-11 21:01] VITALS: BP 121/67; BP 121/71; PULSE 108; PULSE 92; RESP 12; TEMP 36.8; O2SAT 91; BMI 42.6
[2025-06-11 21:05] VITALS: BP 121/67; PULSE 92; RESP 12; TEMP 36.8; O2SAT 95
[2025-06-11 21:34] LABS: MANUAL DIFF FLAG NO
[2025-06-11 21:36] LABS: Hematocrit 41.1 % (42.0-52.0); Hemoglobin 13.4 g/dl (14.0-18.0); Imm Gran Abs Auto 0.02 X10*3/uL (0.00-0.03); Imm Gran Pct Auto 0.2 % (0.0-0.4); Lymphocytes Absolute Auto 1.4 X10*3/uL (1.2-4.9); Mean Corpuscular HGB Conc 32.6 g/dl (31.0-36.0); Mean Corpuscular Hemoglobin 27.7 pg (27.0-33.0); Mean Corpuscular Volume 85.1 fL (80.0-98.0); NRBC Abs Auto 0.000 X10*3/uL (0.0-0.012); NRBC Pct Auto 0.0 /100WBC (0.0-0.2); Platelet Count 212 X10*3/uL (160-400); Red Blood Count 4.83 X10*6/uL (4.60-5.80); White Blood Count 9.1 X10*3/uL (4.8-10.8)
[2025-06-11 21:42] LABS: INTERNATIONAL NORM RATIO 1.4 (0.9-1.1); Prothrombin Time 16.5 SEC (10.9-12.4)
[2025-06-11 21:50] LABS: Alanine Aminotransferase 12 U/L (0-40); Albumin Level 3.7 g/dL (3.5-5.0); Alkaline Phosphatase 73 U/L (39-117); Anion Gap 16 (12-20); Aspartate Amino Transferase 21 U/L (5-37); Blood Urea Nitrogen 15 mg/dL (9-16); Calcium 9.3 mg/dL (8.4-10.2); Carbon Dioxide 27 mmol/L (22-29); Chloride 104 mmol/L (96-108); Creatinine Clr Calc Pharmacy 127.8; Estimated Glomerular Filt Rate > 60; Magnesium 1.7 mg/dL (1.6-2.6); Potassium 3.9 mmol/L (3.3-5.1); Sodium 143 mmol/L (135-145); Total Protein 6.3 g/dL (6.5-8.0)
[2025-06-11 21:57] LABS: Troponin-I High Sensitivity 3.5 ng/L (<3.5-35.0)
--- NOTE | 2025-06-11 23:26 | MHC.EDTECH ---
pt is refusing care. offered to fix collar, he said no, he said he has to go poop, offered him bedpan in which he replied no i'll go on myself, thank you asked him if he's sure and he stopped responding to me.
--- NOTE | 2025-06-11 23:41 | ED.FALL ---
HPI - Fall General Chief Complaint: Fall Stated Complaint: Fall Time Seen by Provider: 06/11/25 23:25 Source: patient and EMS Mode of arrival: EMS Limitations: other (Dementia) History of Present Illness ED Provider: Dr. Frida Khan HPI Narrative: Patient comes to the emergency room via EMS. Patient has sustained a fall. Seems that the staff witnessed it. According to the patient, he has no complaints. However, patient has history of dementia and he is not the greatest historian. Patient states that he was dancing on the floor and the floor was wet and he slipped. Patient states that he hit the back of his head. Patient believes he is in Eliquis but he is not sure. Patient denies pain anywhere else. Related Data Allergies Allergy/AdvReac Type Severity Reaction Status Date / Time morphine (MORPHINE) Allergy Intermediate VOMITING Verified 06/11/25 21:04 Review of Systems Review of Systems: Denies any pain, patient is poor historian, patient has history of dementia [facility] Past Medical History Medical History (Updated 06/12/25 @ 00:37 by Frida Khan MD) Anxiety Atrial fibrillation Social History Social History Smoked in Last 30 Days: No Use of substances other than those prescribed or required for medical reasons: No Advance Directives: No Advance Directives Information Provided: No Physical Exam Exam: Exam: Appearance: Alert. Oriented x1, no acute distress Eyes: Pupils equal, round and reactive to light. ENT: Pharynx normal. Neck: Normal inspection. Neck supple. No lymph nodes noted. No crepitus CVS: Normal heart rate and rhythm. Pulses normal. Normal S1 and S2 Respiratory: No respiratory distress. Breath sounds normal. No Wheezing. No rales Abdomen: Soft and nontender. No rigidity. No distention. Skin: Skin warm and dry. Normal skin color. Normal skin turgor. Extremities: No lower extremity edema. No Lacerations. No Rash Neuro: Moves all extremities Psych: Calm, cooperative. However, patient is having conversations with people that are not in the room. Vital Signs: Vital Signs: Last Vital Signs Temp 98.0 F 06/11/25 23:51 Pulse 108 H 06/11/25 23:51 Resp 14 06/11/25 23:51 BP 103/68 06/11/25 23:51 Pulse Ox 95 06/11/25 21:05 O2 Del Method Room Air 06/11/25 21:05 BMI result Body Mass Index 42.6 Course Course Course Narrative: Patient's labs and imaging pending. We will obtain history from the staff at [facility], patient is poor historian, possible history of dementia? Patient is definitely hallucinating. Medical Decision Making Medical Decision Making [facility] Narrative: My interpretation of labs: No significant abnormality in patient's hematology or chemistry, normal LFTs CT scan of the head and neck did not show any acute abnormality. Urinalysis is negative for UTI Patient's nurse was able to get in touch with the facility, patient does take Eliquis. Also, patient has chronic intermittent hallucinations that started in January of 2025 after a fall. Patient is not ambulatory Seems that patient is at baseline. Overall, patient had a fall, no acute findings. Patient has no complaints, no pain. Patient is still hallucinating having conversations with his imaginary friends. Differential Diagnosis Differential Diagnoses: The differential diagnosis associated with the presentation includes (Mechanical fall, urinary tract infection, encephalopathy, schizophrenia) Admission/Observation Consideration of admission/observation: Escalation of care including admission/observation considered (Given patient's presentation and physical exam, patient may need observation/admission) Lab Data [facility] Lab Attestation statement: I reviewed the patient's lab results. 06/11/25 21:30 06/11/25 21:30 Labs: Lab Results 06/11/25 06/12/25 Range/Units 21:30 00:19 WBC 9.1 (4.8-10.8) X10*3/uL RBC 4.83 (4.60-5.80) X10*6/uL Hgb 13.4 L (14.0-18.0) g/dl Hct 41.1 L (42.0-52.0) % MCV 85.1 (80.0-98.0) fL MCH 27.7 (27.0-33.0) pg MCHC 32.6 (31.0-36.0) g/dl RDW 21.8 H (11.0-16.0) % Plt Count 212 (160-400) X10*3/uL MPV 8.8 L (9.4-12.4) fL Immature Gran % (Auto) 0.2 (0.0-0.4) % Neut % (Auto) 72.7 (45-73) % Lymph % (Auto) 14.9 L (20-40) % [place] % (Auto) 9.2 (2-11) % Eos % (Auto) 2.6 (0-4) % Baso % (Auto) 0.4 (0-2) % Lymph # (Auto) 1.4 (1.2-4.9) X10*3/uL [place] # (Auto) 0.8 (0.1-1.2) X10*3/uL Eos # (Auto) 0.2 (0.0-0.4) X10*3/uL Baso # (Auto) 0.0 (0.0-0.2) X10*3/uL Abs Immat Gran (auto) 0.02 (0.00-0.03) X10*3/uL Absolute Neuts (auto) 6.6 (2.0-8.3) x10*3/uL Absolute Nucleated RBC 0.000 (0.0-0.012) X10*3/uL Nucleated RBC % (auto) 0.0 (0.0-0.2) /100WBC PT 16.5 H (10.9-12.4) SEC INR 1.4 H (0.9-1.1) Sodium 143 (135-145) mmol/L Potassium 3.9 D (3.3-5.1) mmol/L Chloride 104 (96-108) mmol/L Carbon Dioxide 27 (22-29) mmol/L Anion Gap 16 (12-20) BUN 15 (9-16) mg/dL Creatinine 0.75 (0.5-1.4) mg/dL Estim Creat Clear Calc 127.8 Estimated GFR > 60 Random Glucose 97 (60-115) mg/dL Calcium 9.3 (8.4-10.2) mg/dL Magnesium 1.7 (1.6-2.6) mg/dL Total Bilirubin 0.5 (0.0-1.0) mg/dL AST 21 (5-37) U/L ALT 12 (0-40) U/L Alkaline Phosphatase 73 (39-117) U/L Troponin I High Sens 3.5 (<3.5-35.0) ng/L Total Protein 6.3 L (6.5-8.0) g/dL Albumin 3.7 (3.5-5.0) g/dL Urine Color Yellow Urine Appearance Clear Urine pH 5.5 (5.0-9.0) Ur Specific Merrill 1.015 (1.005-1.025) Urine Protein Negative (Neg-Trace) mg/dL Urine Glucose (UA) Negative (Negative) mg/dL Urine Ketones Trace (Negative) mg/dL Urine Blood Negative (Negative) Urine Nitrite Negative (Negative) Ur Leukocyte Esterase Negative (Negative) Independent Interpretation I performed an independent interpretation of an: CT Scan Radiology Impression Discussion of test interpretation with radiology: I have reviewed the radiologist's reading. Radiologist Impression: Craniocervical junction: No occipital condylar fractures. No evidence of atlantooccipital dissociation. The anterior and posterior arch and lateral masses of C1 are intact. Odontoid and atlanto-dental interval intact. The pars interarticularis of C2 is intact. There is normal vertebral body heights with no evidence of compression fracture. There is normal cervical alignment. No locked or perched facets. No spinous process fractures. Lordotic curvature is straightened The retropharyngeal soft tissues are not widened. Segmental analysis as below (MR is more accurate in the evaluation of disc herniation and central canal pathology): C2-C3: No herniation or stenosis. C3-C4: Uncovertebral body spurs and degenerative facet hypertrophy bilaterally C4-C5: Uncovertebral body spurs and degenerative facet hypertrophy bilaterally C5-C6: Uncovertebral body spurs and degenerative facet hypertrophy bilaterally C6-C7: Uncovertebral body spurs C7-T1: No herniation or stenosis. The bones are without evidence of lytic or blastic lesion. Lung apices are unremarkable. 1. Suboptimal exam due to motion repeat advised. No gross hemorrhage midline shift or mass effect. 2. Cerebral volume loss, intracranial atherosclerotic disease and mild sequela of chronic small vessel ischemic disease. Critical Care Time Critical Care Time Critical Care Time: Yes Total Critical Care Time: 35 Attestation: I have personally provided critical care time. Time includes review of lab data, radiology results, discussion with consultants, and monitoring for potential decompensation. Intervention performed as documented. Discharge Plan Discharge Clinical Impression: Fall, Contusion Patient Disposition: Home, Self-Care Instructions: Fall Prevention for Older Adults (ED) Additional Instructions: Please follow-up with your primary care physician tomorrow. If you have any worsening or new symptoms, please return to the emergency room or call 911 [employer]: Bahamian
[2025-06-11 23:51] VITALS: BP 103/68; PULSE 108; RESP 14; TEMP 36.7
[2025-06-12 00:29] LABS: Appearance Urine Clear; Glucose Urine UA Negative (Negative); PH 5.5 (5.0-9.0); Specific Gravity - Urine 1.015 (1.005-1.025)
[2025-06-12 00:57] VITALS: BP 102/60; PULSE 103; RESP 19; TEMP 36.6; O2SAT 95
[2025-06-12 01:26] VITALS: BP 102/60; PULSE 103; RESP 19; TEMP 36.6; O2SAT 95
== END 2025-06-12 01:45 | disposition skilled nursing facility (03) ==
PROVIDERS: Emergency Provider Emergency Medicine
DX: S09.90XA Unspecified injury of head, initial encounter (principal); R51.9 Headache, unspecified; I48.91 Unspecified atrial fibrillation; M54.2 Cervicalgia; W18.30XA Fall on same level, unspecified, initial encounter; Y93.41 Activity, dancing; Y92.9 Unspecified place or not applicable; Y99.8 Other external cause status; Z79.899 Other long term (current) drug therapy
CPT/HCPCS: 36415; 51701; 70450; 72125; 80053; 81003; 83735; 84484; 85025; 85610; 93005; 99284

== ENCOUNTER → 2025-06-11 21:13 | Outpatient (BNV) | payer MEDICARE, SELFPAY | PROVIDERS: Emergency Provider Emergency Medicine; Visit Provider Internal Medicine Cardiovascular Disease | DX: I48.91 Unspecified atrial fibrillation (principal) | CPT/HCPCS: 93010 ==

== ENCOUNTER 2025-06-12 12:53 | Observation (INO) | payer MEDICARE, SELFPAY ==
--- NOTE | ~2025-06-12 | XR_ITS ---
CLINICAL HISTORY: weakness 1 view chest Comparison: None Findings: Low inspiration. Resultant mild vascular crowding centrally with subsegmental atelectasis. No consolidation or pneumothorax/effusion. Borderline cardiomegaly. No evidence of heart failure. No acute fractures. Post rotator cuff repair. Impression: 1. Low inspiration with central vascular crowding and subsegmental atelectasis. 2. No acute cardiopulmonary disease. This document has been electronically signed by: Rachid Bowen MD on 06/12/2025 14:49:24
[2025-06-12 13:09] VITALS: BP 117/82; BP 165/110; PULSE 122; PULSE 94; RESP 18; TEMP 36.8; O2SAT 94; O2SAT 96; BMI 44.9
--- NOTE | 2025-06-12 13:11 | ECG_ITS ---
Test Reason : AMS Blood Pressure : */* mmHG Vent. Rate : 104 BPM Atrial Rate : * BPM P-R Int : * ms QRS Dur : 98 ms QT Int : 354 ms P-R-T Axes : * 0 -25 degrees QTcB Int : 465 ms Atrial fibrillation with rapid ventricular response ST & T wave abnormality, consider anterior ischemia Abnormal ECG When compared with ECG of 11-Jun-2025 21:13, No significant change was found Referred By: Susana Tabares Electronically Signed By: KEMI CARRASCO
--- NOTE | 2025-06-12 13:22 | ED.GENADULT ---
HPI - General Adult General Chief complaint: General Medical Stated complaint: AGITATION FROM SNF PER EMS Time Seen by Provider: 06/12/25 13:05 Source: patient and EMS Mode of arrival: EMS Limitations: altered mental status History of Present Illness ED Provider: Susana Tabares APRN HPI narrative: This is a 79-year-old male who has a past medical history of AFib who is anticoagulated, COPD, anxiety, depression, sleep apnea, hypertension, GERD, here from [facility] with concern for AMS, agitation x24 hrs. Patient here yesterday or mechanical fall with negative CT head/cervical spine. On review of ER note from yesterday there was a note that patient had been hallucinating. On arrival the patient is alert, oriented to self only. Has no complaints. Related Data Home Medications ?Medication ?Instructions ?Recorded ?Confirmed apixaban 5 mg tablet (Eliquis) 5 mg PO BID 06/12/25 06/12/25 ascorbic acid (vitamin C) 250 mg 250 mg PO DAILY 06/12/25 06/12/25 tablet bupropion HCl 150 mg tablet,12 hr 150 mg PO BID 06/12/25 06/12/25 sustained-release docusate sodium 50 mg capsule 50 mg PO DAILY 06/12/25 06/12/25 duloxetine 60 mg capsule,delayed 60 mg PO DAILY 06/12/25 06/12/25 release escitalopram oxalate 20 mg tablet 20 mg PO DAILY 06/12/25 06/12/25 escitalopram oxalate 20 mg tablet 20 mg PO DAILY 06/12/25 06/12/25 ferrous sulfate 325 mg (65 mg 325 mg PO DAILY 06/12/25 06/12/25 iron) tablet lisinopril 5 mg tablet 20 mg PO DAILY 06/12/25 06/12/25 metoprolol tartrate 25 mg tablet 50 mg PO BID 06/12/25 06/12/25 mirabegron 50 mg tablet,extended 50 mg PO QAM 06/12/25 06/12/25 release 24 hr (Myrbetriq) montelukast 10 mg tablet 10 mg PO BEDTIME 06/12/25 06/12/25 multivitamin 1 tab PO DAILY 06/12/25 06/12/25 oxycodone 5 mg tablet 10 mg PO Q4H PRN Severe Pain 06/12/25 06/12/25 (Scale Score 7-10) phentermine 15 mg capsule 15 mg PO BID 06/12/25 06/12/25 pregabalin 50 mg capsule (Lyrica) 50 mg PO DAILY 06/12/25 06/12/25 rosuvastatin 40 mg tablet 40 mg PO BEDTIME 06/12/25 06/12/25 sennosides 8.6 mg tablet (senna) 8.6 mg PO DAILY PRN Constipation 06/12/25 06/12/25 Allergies Allergy/AdvReac Type Severity Reaction Status Date / Time morphine (MORPHINE) Allergy Intermediate VOMITING Verified 06/12/25 13:12 Review of Systems Review of Systems: Yes Unobtainable due to mental status Neurologic: Denies Abnormal speech present [facility] Past Medical History Attestation statement: The following information was validated with the patient. Source: old records reviewed and nursing notes reviewed Medical History Anxiety Atrial fibrillation Social History Social History Smoked in Last 30 Days: No Use of substances other than those prescribed or required for medical reasons: No Advance Directives: No Advance Directives Information Provided: Yes Do you have a plan to hurt others: No Plan Physical Exam ED Vital Signs: Vital Signs - 24 hr 06/12/25 17:57 06/12/25 18:57 06/12/25 19:59 Temperature 97.8 F 98.2 F Pulse Rate 99 99 110 H Respiratory Rate 17 20 Blood Pressure 133/48 L 124/53 L 98/79 Pulse Oximetry 94 99 Oxygen Delivery Method Room Air Room Air 06/13/25 02:17 06/13/25 06:00 06/13/25 10:01 Temperature 97.6 F 97.4 F Pulse Rate 98 89 107 H Respiratory Rate 16 16 Blood Pressure 117/71 105/71 143/98 H Pulse Oximetry 95 94 Oxygen Delivery Method Room Air Room Air 06/13/25 10:01 Temperature Pulse Rate Respiratory Rate Blood Pressure 143/98 H Pulse Oximetry Oxygen Delivery Method BMI result Body Mass Index 44.9 Const General: alert Orientation/consciousness: oriented to person HENMO Head: Yes normal to inspection Ears: hearing grossly normal bilaterally General nose exam: Normal external nose present Face and sinus: Yes normal facial exam Mouth: Normal oral and palatal mucosa present Throat: Yes posterior oropharynx normal Eyes General: appearance normal, both eyes and all related structures Pupils: Equal, round and reactive pupils present Neck Neck: Yes normal visual inspection Chest Chest palpation & inspection: normal inspection of the chest Resp Effort & Inspection: normal respiratory effort Auscultation: clear to auscultation bilaterally Cardio Rate: regular rate Rhythm: regular rhythm Peripheral pulses: Peripheral pulses 2+ throughout GI Inspection: Yes normal to inspection Palpation (GI): Soft to palpation and nontender Auscultation: normal bowel sounds Back/Spine/Pelvis Thoracic/Lumbar Spine: thoracic and lumbar spine normal to inspection Skin General skin exam: no rashes or lesions noted Neuro General: oriented to person, moves all extremities, no focal motor deficits and normal sensation to monofilament Cranial nerves: Yes CN's II-XII intact bilaterally, Yes Equal, round and reactive pupils present, Yes Normal facial strength present and Yes Midline tongue present Cognition (Neuro): normal cognition Speech: No Abnormal speech present Sensory Exam: Normal double simultaneous stimulation for sensation Extrem General: Yes normal to inspection Course Course Course Narrative: I did leave a message with [facility] for nursing to call me back after initially seeing the patient. came and was at the bedside of the patient. She reports there is no history of dementia. He has had delirium during several hospital visits as well as an admission for AMS in which he was hypercarbic. She also reports they have been making changes to his narcotics (he had been on 40mg oxycontin BID for years but since being in [facility] (05/25 admission after being discharged from [facility], prior to this he had been at [facility]) they changed him to oxycodone 10mg Q4hrs PRN. She is concerned today because the patient is confused, keeps stating to her I think I'm and she reports he keeps saying that he is seeing coffins. On yesterdays ER visit it was noted the patient was having hallucinations. It is unclear how long this has been going on. Patient had CT imaging yesterday which was negative. On todays visit I have ordered EKG, CXR, UA, WALKER, labs, viral testing. Reevaluation(s) Reevaluation #1: 4930-I reviewed patient's labs which show a mildly elevated lactic acid. Patient has tacky mucous membranes. I do believe he has some mild dehydration and I gave him 1 L of IV fluids. Repeat lactic acid was improved. His additional labs are unremarkable. His ammonia and TSH are still pending. His urine shows no signs of infection. His chest x-ray is negative. His viral testing is negative. His EKG shows AFib. He is mildly tachycardic and I do believe that he is probably missed some of his dosages of his beta-jerson due to him being here last night and since early this morning. Therefore will give him 50 mg of metoprolol po. Patient has had multiple visits to rehab facilities and hospitals in the last few months and has not been home since March. He has also had several changes to his medications. I believe that he may have some delirium but he also may have underlying dementia. Therefore I will consult care team and he will likely need a psychiatric evaluation as well. This was discussed with his Kaylie and she agrees with plan of care Reevaluation #2: Time: 18:21 Date: 06/12/25 Provider: Susana Tabares NP Patient placed in physician observation for psychiatric evaluation.? Reevaluation #3: 06/13 2665-the patient was seen by Psychiatry. They are unsure if this change in mental status is psychiatric related and feel the patient would benefit from admission for Neurology consultation and further management. I reached out to the hospital team for admission (Chantale OCHOA) who accepted admission. Medications Administered Generic Name Dose Route Start Last Admin Trade Name Freq PRN Reason Stop Dose Admin Apixaban 5 mg 06/12/25 21:00 06/13/25 09:59 Apixaban 5 Mg Tablet PO 5 mg BID ROBSON Administration Ascorbic Acid 250 mg 06/13/25 09:00 06/13/25 09:59 Ascorbic Acid 250 Mg Tablet PO 250 mg DAILY ROBSON Administration Atorvastatin Calcium 80 mg 06/12/25 21:00 06/12/25 20:36 Atorvastatin Calcium 80 Mg Tablet PO 80 mg BEDTIME ROBSON Administration Bupropion HCl 300 mg 06/13/25 09:00 06/13/25 09:59 Bupropion Hcl Xl 300 Mg Tab.Er.24h PO 300 mg DAILY ROBSON Administration Docusate Sodium 50 mg 06/13/25 09:00 06/13/25 10:02 Docusate Sodium 100 Mg/10 Ml Liquid PO 50 mg DAILY ROBSON Administration Duloxetine HCl 60 mg 06/13/25 09:00 06/13/25 09:59 Duloxetine Hcl 60 Mg Capsule. PO 60 mg DAILY ROBSON Administration Escitalopram Oxalate 20 mg 06/13/25 09:00 06/13/25 09:59 Escitalopram Oxalate 20 Mg Tablet PO 20 mg DAILY ROBSON Administration Ferrous Sulfate 324 mg 06/13/25 09:00 06/13/25 09:59 Ferrous Sulfate 324 Mg Tablet. PO 324 mg DAILY ROBSON Administration Lisinopril 20 mg 06/13/25 09:00 06/13/25 10:01 Lisinopril 20 Mg Tablet PO 20 mg DAILY ROBSON Administration Protocol Metoprolol Tartrate 50 mg 06/12/25 21:00 06/13/25 10:01 Metoprolol Tartrate 50 Mg Tablet PO 50 mg BID ROBSON Administration Protocol Mirabegron 50 mg 06/12/25 17:15 06/13/25 09:59 Mirabegron 50 Mg Tab.Er.24h PO 50 mg DAILY ROBSON Administration Montelukast Sodium 10 mg 06/12/25 21:00 06/12/25 20:37 Montelukast Sodium 10 Mg Tablet PO 10 mg BEDTIME ROBSON Administration Multivitamins/Vitamin C 1 tab 06/13/25 09:00 06/13/25 09:59 Multivitamin Tablet PO 1 tab DAILY ROBSON Administration Oxycodone HCl 10 mg 06/12/25 17:07 06/13/25 10:06 Oxycodone Hcl Immed Release 5 Mg Tablet PO 10 mg Q4H PRN Administration Severe Pain (Scale Score 7-10) Pregabalin 50 mg 06/13/25 09:00 06/13/25 09:59 Pregabalin 50 Mg Capsule PO 50 mg DAILY ROBSON Administration Discontinued Medications Generic Name Dose Route Start Last Admin Trade Name Freq PRN Reason Stop Dose Admin Sodium Chloride 500 mls @ 999 mls/hr 06/12/25 13:11 06/12/25 14:07 Ns IV 06/12/25 13:41 Infused .Q31M STA Infusion Metoprolol Tartrate 50 mg 06/12/25 17:17 06/12/25 17:57 Metoprolol Tartrate 50 Mg Tablet PO 06/12/25 17:18 50 mg ONCE ONE Administration Protocol Olanzapine 10 mg 06/12/25 20:27 06/12/25 20:36 Olanzapine 10 Mg Tablet PO 06/12/25 20:28 10 mg ONCE ONE Administration Quetiapine Fumarate 50 mg 06/12/25 18:28 06/12/25 18:41 Quetiapine Fumarate 50 Mg Tablet PO 06/12/25 18:29 50 mg ONCE ONE Administration Medical Decision Making Medical Decision Making [facility] Narrative: This is a 79-year-old male who has a past medical history of AFib who is anticoagulated, COPD, anxiety, depression, sleep apnea, hypertension, GERD,here from [facility] with concern for AMS, agitation x24 hrs. Patient here yesterday or mechanical fall with negative CT head/cervical spine. On review of ER note from yesterday there was a note that patient had been hallucinating. On arrival the patient is alert, oriented to self only. Has no complaints. Patient is alert, pleasantly confused. No overt neurological deficits. Patient is mildly tachycardic. Other vital signs are stable. I will obtain collateral information from [facility]. Will obtain labs, UA, EKG Differential Diagnosis Differential Diagnoses: The differential diagnosis associated with the presentation includes metabolic cause/encephalopathy delirium dementia Admission/Observation Consideration of admission/observation: Escalation of care including admission/observation considered see course of care Consult Healthcare Provider Management of the patient was discussed with: Hospitalist and Gray Tender See course of care Lab Data [facility] Lab Attestation statement: I reviewed the patient's lab results. 06/12/25 13:34 06/12/25 13:34 Labs: Lab Results 06/12/25 06/12/25 06/12/25 Range/Units 13:34 16:09 16:44 WBC 8.2 (4.8-10.8) X10*3/uL RBC 4.75 (4.60-5.80) X10*6/uL Hgb 13.2 L (14.0-18.0) g/dl Hct 40.4 L (42.0-52.0) % MCV 85.1 (80.0-98.0) fL MCH 27.8 (27.0-33.0) pg MCHC 32.7 (31.0-36.0) g/dl RDW 22.1 H (11.0-16.0) % Plt Count 230 (160-400) X10*3/uL MPV 8.7 L (9.4-12.4) fL Immature Gran % (Auto) 0.2 (0.0-0.4) % Neut % (Auto) 72.7 (45-73) % Lymph % (Auto) 15.5 L (20-40) % [place] % (Auto) 10.1 (2-11) % Eos % (Auto) 1.0 (0-4) % Baso % (Auto) 0.5 (0-2) % Lymph # (Auto) 1.3 (1.2-4.9) X10*3/uL [place] # (Auto) 0.8 (0.1-1.2) X10*3/uL Eos # (Auto) 0.1 (0.0-0.4) X10*3/uL Baso # (Auto) 0.0 (0.0-0.2) X10*3/uL Abs Immat Gran (auto) 0.02 (0.00-0.03) X10*3/uL Absolute Neuts (auto) 6.0 (2.0-8.3) x10*3/uL Absolute Nucleated RBC 0.000 (0.0-0.012) X10*3/uL Nucleated RBC % (auto) 0.0 (0.0-0.2) /100WBC Sodium 144 (135-145) mmol/L Potassium 4.1 (3.3-5.1) mmol/L Chloride 105 (96-108) mmol/L Carbon Dioxide 27 (22-29) mmol/L Anion Gap 16 (12-20) BUN 16 (9-16) mg/dL Creatinine 0.73 (0.5-1.4) mg/dL Estim Creat Clear Calc 135.2 Estimated GFR > 60 Random Glucose 108 (60-115) mg/dL Lactic Acid 2.7 H* (0.5-2.0) mmol/L Lactic Acid F/U @ 2Hr 1.5 (0.5-2.0) mmol/L Calcium 9.7 (8.4-10.2) mg/dL Magnesium 1.8 (1.6-2.6) mg/dL Total Bilirubin 0.6 (0.0-1.0) mg/dL Direct Bilirubin 0.3 (0.0-0.5) mg/dL AST 20 (5-37) U/L ALT 12 (0-40) U/L Alkaline Phosphatase 78 (39-117) U/L Ammonia (13-55) umol/L Total Protein 6.4 L (6.5-8.0) g/dL Albumin 3.9 (3.5-5.0) g/dL TSH 1.08 (0.32-4.0) uIU/mL Urine Color Dark Yellow Urine Appearance Cloudy Urine pH 5.5 (5.0-9.0) Ur Specific [place] >= 1.030 H (1.005-1.025) Urine Protein Trace (Neg-Trace) mg/dL Urine Glucose (UA) Negative (Negative) mg/dL Urine Ketones 15 (Negative) mg/dL Urine Blood Negative (Negative) Urine Nitrite Negative (Negative) Ur Leukocyte Esterase Trace H (Negative) Urine RBC 0-2 (0-2) /HPF Urine WBC 0-5 (0-5) /HPF Ur Squamous Epith Cells 3-5 (0-2) /HPF Calcium Oxalate Crystal Present Other Crystals Present Urine Bacteria None Seen (None Seen) Hyaline Casts 6-10 (0-2) /LPF Urine Opiates Screen POSITIVE H (Not Detect) Ur Buprenorphine Scrn Not Detected (Not Detect) ng/mL Ur Oxycodone Screen Positive H (Not Detect) ng/mL Urine Methadone Screen Not Detected (Not Detect) ng/mL Urine Fentanyl Screen Not Detected (Not Detect) Ur Barbiturates Screen Not Detected (Not Detect) Ur Phencyclidine Scrn Not Detected (Not Detect) Ur Amphetamines Screen POSITIVE H (Not Detect) U Benzodiazepines Scrn Not Detected (Not Detect) Urine Cocaine Screen Not Detected (Not Detect) U Marijuana (THC) Screen Not Detected (Not Detect) Influenza Type A (PCR) NEGATIVE (Negative) Influenza Type B (PCR) NEGATIVE (Negative) RSV RNA Qual (PCR) NEGATIVE (Negative) SARS-CoV-2 RNA (RT-PCR) NEGATIVE (Negative) 06/12/25 Range/Units 18:51 WBC (4.8-10.8) X10*3/uL RBC (4.60-5.80) X10*6/uL Hgb (14.0-18.0) g/dl Hct (42.0-52.0) % MCV (80.0-98.0) fL MCH (27.0-33.0) pg MCHC (31.0-36.0) g/dl RDW (11.0-16.0) % Plt Count (160-400) X10*3/uL MPV (9.4-12.4) fL Immature Gran % (Auto) (0.0-0.4) % Neut % (Auto) (45-73) % Lymph % (Auto) (20-40) % [place] % (Auto) (2-11) % Eos % (Auto) (0-4) % Baso % (Auto) (0-2) % Lymph # (Auto) (1.2-4.9) X10*3/uL [place] # (Auto) (0.1-1.2) X10*3/uL Eos # (Auto) (0.0-0.4) X10*3/uL Baso # (Auto) (0.0-0.2) X10*3/uL Abs Immat Gran (auto) (0.00-0.03) X10*3/uL Absolute Neuts (auto) (2.0-8.3) x10*3/uL Absolute Nucleated RBC (0.0-0.012) X10*3/uL Nucleated RBC % (auto) (0.0-0.2) /100WBC Sodium (135-145) mmol/L Potassium (3.3-5.1) mmol/L Chloride (96-108) mmol/L Carbon Dioxide (22-29) mmol/L Anion Gap (12-20) BUN (9-16) mg/dL Creatinine (0.5-1.4) mg/dL Estim Creat Clear Calc Estimated GFR Random Glucose (60-115) mg/dL Lactic Acid (0.5-2.0) mmol/L Lactic Acid F/U @ 2Hr (0.5-2.0) mmol/L Calcium (8.4-10.2) mg/dL Magnesium (1.6-2.6) mg/dL Total Bilirubin (0.0-1.0) mg/dL Direct Bilirubin (0.0-0.5) mg/dL AST (5-37) U/L ALT (0-40) U/L Alkaline Phosphatase (39-117) U/L Ammonia 21 (13-55) umol/L Total Protein (6.5-8.0) g/dL Albumin (3.5-5.0) g/dL TSH (0.32-4.0) uIU/mL Urine Color Urine Appearance Urine pH (5.0-9.0) Ur Specific [place] (1.005-1.025) Urine Protein (Neg-Trace) mg/dL Urine Glucose (UA) (Negative) mg/dL Urine Ketones (Negative) mg/dL Urine Blood (Negative) Urine Nitrite (Negative) Ur Leukocyte Esterase (Negative) Urine RBC (0-2) /HPF Urine WBC (0-5) /HPF Ur Squamous Epith Cells (0-2) /HPF Calcium Oxalate Crystal Other Crystals Urine Bacteria (None Seen) Hyaline Casts (0-2) /LPF Urine Opiates Screen (Not Detect) Ur Buprenorphine Scrn (Not Detect) ng/mL Ur Oxycodone Screen (Not Detect) ng/mL Urine Methadone Screen (Not Detect) ng/mL Urine Fentanyl Screen (Not Detect) Ur Barbiturates Screen (Not Detect) Ur Phencyclidine Scrn (Not Detect) Ur Amphetamines Screen (Not Detect) U Benzodiazepines Scrn (Not Detect) Urine Cocaine Screen (Not Detect) U Marijuana (THC) Screen (Not Detect) Influenza Type A (PCR) (Negative) Influenza Type B (PCR) (Negative) RSV RNA Qual (PCR) (Negative) SARS-CoV-2 RNA (RT-PCR) (Negative) Independent Historian Clinical information obtained from an independent historian. History obtained from or confirmed by: EMS Critical Care Time Critical Care Time Critical Care Time: Yes Total Critical Care Time: 90 Attestation: Time includes: direct patient care, patient reassessment, coordination of patient care, interpretation of data, review of patient's medical records, medical consultation and documentation of patient care. Discharge Plan Discharge Clinical Impression: Confusion Patient Disposition: Admitted As Inpatient Print Language: Faroese
[2025-06-12 13:44] LABS: Hematocrit 40.4 % (42.0-52.0); Hemoglobin 13.2 g/dl (14.0-18.0); Imm Gran Abs Auto 0.02 X10*3/uL (0.00-0.03); Imm Gran Pct Auto 0.2 % (0.0-0.4); Lymphocytes Absolute Auto 1.3 X10*3/uL (1.2-4.9); MANUAL DIFF FLAG NO; Mean Corpuscular HGB Conc 32.7 g/dl (31.0-36.0); Mean Corpuscular Hemoglobin 27.8 pg (27.0-33.0); Mean Corpuscular Volume 85.1 fL (80.0-98.0); NRBC Abs Auto 0.000 X10*3/uL (0.0-0.012); NRBC Pct Auto 0.0 /100WBC (0.0-0.2); Platelet Count 230 X10*3/uL (160-400); Red Blood Count 4.75 X10*6/uL (4.60-5.80); White Blood Count 8.2 X10*3/uL (4.8-10.8)
[2025-06-12 13:45] VITALS: PULSE 120
--- NOTE | 2025-06-12 13:47 | PC.NURSE ---
patient is awake/alert to person- is aware he is at the hospital but couldn't state what hospital, unsure of year, pt has c/o lt shoulder pain 03/30 which he states he has lotion that is put on it which helps. ekg performed, cable installation manager applied afib on monitor rr equal/non labored, 2+ edema to feet, iv inserted, labs drawn, IVF hung per order. pt is noted by this nurse to be responding to external stimulus- speaking with somebody to the right of him that is not there. pt currently calm and cooporative. plan of care ongoing.
[2025-06-12 14:05] LABS: Alanine Aminotransferase 12 U/L (0-40); Albumin Level 3.9 g/dL (3.5-5.0); Alkaline Phosphatase 78 U/L (39-117); Anion Gap 16 (12-20); Aspartate Amino Transferase 20 U/L (5-37); Blood Urea Nitrogen 16 mg/dL (9-16); Calcium 9.7 mg/dL (8.4-10.2); Carbon Dioxide 27 mmol/L (22-29); Chloride 105 mmol/L (96-108); Creatinine Clr Calc Pharmacy 135.2; Estimated Glomerular Filt Rate > 60; Magnesium 1.8 mg/dL (1.6-2.6); Potassium 4.1 mmol/L (3.3-5.1); Sodium 144 mmol/L (135-145); Total Protein 6.4 g/dL (6.5-8.0)
[2025-06-12 14:34] LABS: Resp Syncy Virus RNA Qual PCR NEGATIVE (Negative); SARS COV2 PCR INHOUSE NEGATIVE (Negative)
--- NOTE | 2025-06-12 15:27 | PHA.MEDREC ---
Pharmacy Consult ? Medication Reconciliation Pharmacy has completed the medication reconciliation. Completed with list from [facility]
[2025-06-12 15:42] LABS: Reflex Lactate? Lactic Acid Added
[2025-06-12 16:36] LABS: ~Lactic Acid-LAB USE ONLY 1.5 mmol/L (0.5-2.0)
[2025-06-12 16:57] LABS: Appearance Urine Cloudy; Glucose Urine UA Negative (Negative); PH 5.5 (5.0-9.0); Specific Gravity - Urine >= 1.030 (1.005-1.025); UMIC TRIGGER UACC YES
[2025-06-12 17:09] LABS: Other Crystals Urine Present
[2025-06-12 17:21] LABS: Cannabinoid Screen Urine Not Detected (Not Detect)
[2025-06-12 17:57] VITALS: BP 133/48; PULSE 99
[2025-06-12] MEDS: oxyCODONE HCl Immed Release 5 MG TABLET 10 MG PO (17:57)
--- NOTE | 2025-06-12 17:58 | PC.NURSE ---
patient moved over to hospital bed, bed alarm applied, fall precautions intact
--- NOTE | 2025-06-12 17:59 | PC.NURSE ---
missing med sent tiger text for missing medication
[2025-06-12] MEDS: Mirabegron 50 MG TAB.ER.24H PO (18:09)
--- NOTE | 2025-06-12 18:13 | PC.NURSE ---
this nurse noted that the patients pupils were slightly different in size, provider was notified. pt was medicated with oxycodone for 7/10 left arm pain. pt currently restless in bed, and continuing to speak to somebody not at bedside. director of cardiac cath lab intact afib on monitor, vss, care team spoke with patient and has suggested he be seen by psych- per care team they have notified the provider, plan of care ongoing
--- NOTE | 2025-06-12 18:42 | PC.NURSE ---
pt medicated with seroquel per order, 1:1 sitter at bedside per request of provider
[2025-06-12 18:57] VITALS: BP 124/53; PULSE 99; RESP 17; TEMP 36.6; O2SAT 94
[2025-06-12 19:06] LABS: Ammonia 21 umol/L (13-55)
[2025-06-12 19:59] VITALS: BP 98/79; PULSE 110; RESP 20; TEMP 36.8; O2SAT 99
[2025-06-13 02:17] VITALS: BP 117/71; PULSE 98; RESP 16; TEMP 36.4; O2SAT 95
[2025-06-13 06:00] VITALS: BP 105/71; PULSE 89; RESP 16; TEMP 36.3; O2SAT 94
[2025-06-13] MEDS: buPROPion HCl XL 300 MG TAB.ER.24H PO (09:59)
[2025-06-13] MEDS: Ferrous Sulfate 324 MG TABLET.DR PO (09:59)
[2025-06-13] MEDS: Mirabegron 50 MG TAB.ER.24H PO (09:59)
[2025-06-13 10:01] VITALS: BP 143/98; PULSE 107
[2025-06-13] MEDS: oxyCODONE HCl Immed Release 5 MG TABLET 10 MG PO ×2 (10:06→14:44)
--- NOTE | 2025-06-13 10:29 | PM.PSYCN ---
History of Present Illness Date of Service: 06/13/25 Chief Complaint: AGITATION FROM SNF PER EMS HPI Narrative: ED Provider Note 06/12/25: 79-year-old male who has a past medical history of AFib who is anticoagulated, COPD, anxiety, depression, sleep apnea, hypertension, GERD, here from [facility] with concern for AMS, agitation x24 hrs. Patient here yesterday or mechanical fall with negative CT head/cervical spine. On review of ER note from yesterday there was a note that patient had been hallucinating. On arrival the patient is alert, oriented to self only. Has no complaints. Tox positive for amphetamine, opiates and oxycodone UA- trace leuk esterase Fall 06/11- head CT unreamrkable Noted 06/11 ED note: hallucinations along with falls since January 2025 per CARES evaluation (including collateral information from ): 79-year-old, Slovak-speaking male who is not previously known to the CARE Team. He is currently being assessed due to presenting with depression, anxiety, confusion and hallucinations. He has reportedly been 'agitated' for the past 24 hours following a fall at [facility]. There is no reported history of prior mental health treatment or psychiatric engagement....was transported to [facility] after suffering a fall on 06/11/2023. He was discharged but subsequently returned to the emergency department due to confusion and hallucinations His was present for the assessment and reported that the patient?s oxycodone was decreased recently from 40mg BID to 10mg Q4hrs PRN. According to her, the patient has appeared unsteady on his feet and has experienced multiple falls since April 2025.....observed lying in a hospital bed with tremers. He is oriented to self, but not to place or date. The patient was observed experiencing hallunications involving a woman's voice. Insight, judgment, and impulse control appear impaired, as evidenced by imparied memeory. When asked, he reported his mood as '100 percent,' though his affect appeared confused. His speech was pressured, and eye contact was avoidant. He was observed staring at the ceiling but demonstrated awareness of his and daughter being present in the room....... The patient initially resided with his , dog, and two cats. Due to recent falls, he has been receiving treatment at [facility] since April 2025. 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 He is also reported to be oriented to time and place. With lyric writer: Pt is pleasant. Trouble with orientation to place a hospital or a rehab or something, not sure which one . I have been here a couple of days now . June 16, 2024 or 2024 I think . Aware has had trouble with falls recently. Denied hallucinations. Denied feeling scared or paranoid or depressed. No SI or HI. Denied Psychiatric History. Reports opiate pain medications x over 10 years. Past Psychiatric History: Denied outside of above. Is on lexapro Medical Evaluation Reviewed: Yes [facility] Medical History Anxiety Atrial fibrillation Social History: per chart collateral The patient initially resided with his , dog, and two cats. Due to recent falls, he has been receiving treatment at [facility] since April 2025. 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 He is also reported to be oriented to time and place. Substance History: not aware of same Diagnostics Vital Signs (24Hr): Vital Signs - 24 hr 06/12/25 13:09 06/12/25 13:45 06/12/25 17:57 Temperature 98.3 F Pulse Rate 122 H 99 Pulse Rate [Left Apical] 120 H Respiratory Rate 18 Blood Pressure 117/82 133/48 L Pulse Oximetry 94 Oxygen Delivery Method Room Air 06/12/25 18:57 06/12/25 19:59 06/13/25 02:17 Temperature 97.8 F 98.2 F 97.6 F Pulse Rate 99 110 H 98 Pulse Rate [Left Apical] Respiratory Rate 17 20 16 Blood Pressure 124/53 L 98/79 117/71 Pulse Oximetry 94 99 95 Oxygen Delivery Method Room Air Room Air Room Air 06/13/25 06:00 06/13/25 10:01 06/13/25 10:01 Temperature 97.4 F Pulse Rate 89 107 H Pulse Rate [Left Apical] Respiratory Rate 16 Blood Pressure 105/71 143/98 H 143/98 H Pulse Oximetry 94 Oxygen Delivery Method Room Air BMI result Body Mass Index 44.9 Labs 06/12/25 13:34 06/12/25 13:34 Labs: Laboratory Results - last 48 hr 06/12/25 06/12/25 06/12/25 13:34 16:09 16:44 WBC 8.2 RBC 4.75 Hgb 13.2 L Hct 40.4 L MCV 85.1 MCH 27.8 MCHC 32.7 RDW 22.1 H Plt Count 230 MPV 8.7 L Immature Gran % (Auto) 0.2 Neut % (Auto) 72.7 Lymph % (Auto) 15.5 L Kendall % (Auto) 10.1 Eos % (Auto) 1.0 Baso % (Auto) 0.5 Lymph # (Auto) 1.3 Kendall # (Auto) 0.8 Eos # (Auto) 0.1 Baso # (Auto) 0.0 Abs Immat Gran (auto) 0.02 Absolute Neuts (auto) 6.0 Absolute Nucleated RBC 0.000 Nucleated RBC % (auto) 0.0 Sodium 144 Potassium 4.1 Chloride 105 Carbon Dioxide 27 Anion Gap 16 BUN 16 Creatinine 0.73 Estim Creat Clear Calc 135.2 Estimated GFR > 60 Random Glucose 108 Lactic Acid 2.7 H* Lactic Acid F/U @ 2Hr 1.5 Calcium 9.7 Magnesium 1.8 Total Bilirubin 0.6 Direct Bilirubin 0.3 AST 20 ALT 12 Alkaline Phosphatase 78 Ammonia Total Protein 6.4 L Albumin 3.9 TSH 1.08 Urine Color Dark Yellow Urine Appearance Cloudy Urine pH 5.5 Ur Specific [place] >= 1.030 H Urine Protein Trace Urine Glucose (UA) Negative Urine Ketones 15 Urine Blood Negative Urine Nitrite Negative Ur Leukocyte Esterase Trace H Urine RBC 0-2 Urine WBC 0-5 Ur Squamous Epith Cells 3-5 Calcium Oxalate Crystal Present Other Crystals Present Urine Bacteria None Seen Hyaline Casts 6-10 Urine Opiates Screen POSITIVE H Ur Buprenorphine Scrn Not Detected Ur Oxycodone Screen Positive H Urine Methadone Screen Not Detected Urine Fentanyl Screen Not Detected Ur Barbiturates Screen Not Detected Ur Phencyclidine Scrn Not Detected Ur Amphetamines Screen POSITIVE H U Benzodiazepines Scrn Not Detected Urine Cocaine Screen Not Detected U Marijuana (THC) Screen Not Detected Influenza Type A (PCR) NEGATIVE Influenza Type B (PCR) NEGATIVE RSV RNA Qual (PCR) NEGATIVE SARS-CoV-2 RNA (RT-PCR) NEGATIVE 06/12/25 18:51 WBC RBC Hgb Hct MCV MCH MCHC RDW Plt Count MPV Immature Gran % (Auto) Neut % (Auto) Lymph % (Auto) Kendall % (Auto) Eos % (Auto) Baso % (Auto) Lymph # (Auto) Kendall # (Auto) Eos # (Auto) Baso # (Auto) Abs Immat Gran (auto) Absolute Neuts (auto) Absolute Nucleated RBC Nucleated RBC % (auto) Sodium Potassium Chloride Carbon Dioxide Anion Gap BUN Creatinine Estim Creat Clear Calc Estimated GFR Random Glucose Lactic Acid Lactic Acid F/U @ 2Hr Calcium Magnesium Total Bilirubin Direct Bilirubin AST ALT Alkaline Phosphatase Ammonia 21 Total Protein Albumin TSH Urine Color Urine Appearance Urine pH Ur Specific [place] Urine Protein Urine Glucose (UA) Urine Ketones Urine Blood Urine Nitrite Ur Leukocyte Esterase Urine RBC Urine WBC Ur Squamous Epith Cells Calcium Oxalate Crystal Other Crystals Urine Bacteria Hyaline Casts Urine Opiates Screen Ur Buprenorphine Scrn Ur Oxycodone Screen Urine Methadone Screen Urine Fentanyl Screen Ur Barbiturates Screen Ur Phencyclidine Scrn Ur Amphetamines Screen U Benzodiazepines Scrn Urine Cocaine Screen U Marijuana (THC) Screen Influenza Type A (PCR) Influenza Type B (PCR) RSV RNA Qual (PCR) SARS-CoV-2 RNA (RT-PCR) Mental Status Exam Mental Status Exam Patient Appearance: Fatigued and Disheveled Patient Orientation: Place Level of Consciousness: Drowsy Patient Behavior: Talkative and Restless Mood Description: Nervous Affect Description: Nervous Patient Cognition Impaired: Yes Ability to Follow Directions: Poor Speech Pattern: Spontaneous Speech Memory Description: Episodic Impaired Hallucinations: None (denied but staff observed internal preoccupation earlier) Delusions: Not Present Thought Process: Distracted Thought Content: positive for Disoriented Abnormal Motor Activity Signs and Symptoms: Restlessness Judgement: Poor Medications Medications Current Medications Apixaban (Apixaban 5 Mg Tablet) 5 mg PO BID [facility] Last Admin: 06/13/25 09:59 Dose: 5 mg Ascorbic Acid (Ascorbic Acid 250 Mg Tablet) 250 mg PO DAILY [facility] Last Admin: 06/13/25 09:59 Dose: 250 mg Atorvastatin Calcium (Atorvastatin Calcium 80 Mg Tablet) 80 mg PO BEDTIME [facility] Last Admin: 06/12/25 20:36 Dose: 80 mg Bupropion HCl (Bupropion Hcl Xl 300 Mg Tab.Er.24h) 300 mg PO DAILY [facility] Last Admin: 06/13/25 09:59 Dose: 300 mg Docusate Sodium (Docusate Sodium 100 Mg/10 Ml Liquid) 50 mg PO DAILY [facility] Last Admin: 06/13/25 10:02 Dose: 50 mg Duloxetine HCl (Duloxetine Hcl 60 Mg Capsule.) 60 mg PO DAILY [facility] Last Admin: 06/13/25 09:59 Dose: 60 mg Escitalopram Oxalate (Escitalopram Oxalate 20 Mg Tablet) 20 mg PO DAILY [facility] Last Admin: 06/13/25 09:59 Dose: 20 mg Ferrous Sulfate (Ferrous Sulfate 324 Mg Tablet.) 324 mg PO DAILY [facility] Last Admin: 06/13/25 09:59 Dose: 324 mg Lisinopril (Lisinopril 20 Mg Tablet) 20 mg PO DAILY [facility]; Protocol Last Admin: 06/13/25 10:01 Dose: 20 mg Metoprolol Tartrate (Metoprolol Tartrate 50 Mg Tablet) 50 mg PO BID [facility]; Protocol Last Admin: 06/13/25 10:01 Dose: 50 mg Mirabegron (Mirabegron 50 Mg Tab.Er.24h) 50 mg PO DAILY [facility] Last Admin: 06/13/25 09:59 Dose: 50 mg Montelukast Sodium (Montelukast Sodium 10 Mg Tablet) 10 mg PO BEDTIME [facility] Last Admin: 06/12/25 20:37 Dose: 10 mg Multivitamins/Vitamin C (Multivitamin Tablet) 1 tab PO DAILY [facility] Last Admin: 06/13/25 09:59 Dose: 1 tab Oxycodone HCl (Oxycodone Hcl Immed Release 5 Mg Tablet) 10 mg PO Q4H PRN PRN Reason: Severe Pain (Scale Score 7-10) Last Admin: 06/13/25 10:06 Dose: 10 mg Pregabalin (Pregabalin 50 Mg Capsule) 50 mg PO DAILY [facility] Last Admin: 06/13/25 09:59 Dose: 50 mg Senna (Sennosides 8.6 Mg Tablet) 8.6 mg PO DAILY PRN PRN Reason: Constipation Allergies Allergies Allergy/AdvReac Type Severity Reaction Status Date / Time morphine (MORPHINE) Allergy Intermediate VOMITING Verified 06/12/25 13:12 Assessment & Plan Assessment & Plan (1) Delirium: Status: Acute Code(s): R41.0 - Disorientation, unspecified Plan Presents with clear delirium ie acute onset change in mental status, fluctuating cognition/level of alertness, visual hallucinations, no past mental health history and etiology unclear. Noted trace leuk esterase ?factor in presentation. Noted tox had amphetamine and ?source/contributing factor with no known substance issues or history. Also recent falls since April 2025. Would rec ongoing work up and observation ref organic causes including neurology consultation. Might consider UA contributing to presentation and management of same. Would start scheduled olanzapine 2.5mg bid given hallucinations consistently and also 2.5mg prn/q 6 hours for agitation or hallucinations. Avoid benzos and new/additional anticholinergic medications as often worsen delirium. Communicated with ED and CARES Total time managing care of this patient today ____ minutes.
--- NOTE | 2025-06-13 13:35 | PC.NURSE ---
Pt calm/cooperative with staff. A/ox2- self and place, respirations even and unlabored, no increased wob/sob noted, denies CP/SOB. Pt refused breakfast and lunch. Pt offered to get cleaned up- refused clean up, will re-attempt at a later time. Call cutler within reach, all needs met at this time.
[2025-06-13 14:45] VITALS: BP 121/72; PULSE 86; RESP 18; TEMP 36.4; O2SAT 95
--- NOTE | 2025-06-13 15:14 | PC.NURSE ---
Pt cleaned up and repositioned with this RN and engineer technician. Pt washed up, new linens placed. Allevyn foam pad placed to left buttocks d/t redness/darkening- no opened areas noted. Repositioned onto R side with pillows. Medicated per DEC with PRN oxycodone d/t 06/30 R shoulder pain. Pt updated on plan of care. Call cutler within reach, all needs met at this time.
--- NOTE | 2025-06-13 15:41 | PC.NURSE ---
Pt offered urinal throughout shift- pt states he doesn't have to urinate. Tech at bedside to bladder scan. Bladder scan reading 554. MD Vaughan and LORETA Meza made aware. Per CLINIC BUSINESS MANAGER- verbal order to straight cath pt.
--- NOTE | 2025-06-13 16:09 | PM.IMHP ---
History of Present Illness Date of Service: 06/13/25 Attending physician on admission: Rafa Vaughan Chief Complaint: AMS This is a 79-year-old male with multiple medical issues who initially presented to the emergency department on June 11 from [facility] due to a witnessed fall, patient takes Eliquis which seems to be the reason that he was sent in for evaluation. At that time a brain CT showed no evidence of acute intracranial hemorrhage. On that day the ED documentation did note chronic intermittent hallucinations starting in May of 2025 which started after a fall. He was sent back in from [facility] the next day due to AMS and agitation. He had medical workup which was unrevealing and was therefore seen by psychiatry in the emergency department. The psychiatrist is unsure if his change in mental status is psychiatric related and felt that the patient should be admitted to the medical service for a neurology consultation. Per emergency department documentation patient has been in multiple rehab facilities and hospitals over the past few months. Patient was started on scheduled olanzapine with p.r.n. olanzapine as needed by the psychiatric team. When I evaluated him he was alert and oriented to person and place and had no visual or auditory hallucinations although he is somewhat vague regarding why he is here and his medical history. he will be admitted overnight for Neurology evaluation. Of note tox screen was positive for opiates and amphetamines, patient is on chronic opiates for chronic pain and was reportedly being given phentermine for weight loss. Review of Systems Review of Systems: Yes all other systems are reviewed and are negative Constitutional: Constitutional: Denies chills and Denies fever(s) ENT: Denies dizziness Cardiovascular: Cardiovascular: Denies chest pain, Denies palpitations and Denies dyspnea Respiratory: Respiratory: Denies chest congestion, Denies cough and Denies dyspnea Gastrointestinal: Gastrointestinal: Denies abdominal pain, Denies diarrhea, Denies nausea and Denies vomiting Neurologic: Denies dizziness Endocrine: Endocrine: Denies palpitations PMFSH Medical History Anxiety Atrial fibrillation Social History Household Members: Spouse and Significant Other Housing: House Do you presently have visiting nurse or other home services: No Patient Tobacco Use Status: Former Tobacco user Smoked in Last 30 Days: No Use of substances other than those prescribed or required for medical reasons: No Currently Displaying Signs/Symptoms of Drug Intoxication Withdrawal: No Have you been hit, kicked, punched, or otherwise hurt by someone within the past year? If so, by whom?: No Do you feel safe in your current relationship?: Yes Is there a partner from a previous relationship who is making you feel unsafe now?: No Are you made to feel afraid or neglected: No Advance Directives: No Advance Directives Information Provided: Yes Do you have a plan to hurt others: No Plan Recently lost weight without trying: No Nutrition Risks: No Nutritional Risk Meds Allergies Allergy/AdvReac Type Severity Reaction Status Date / Time morphine (MORPHINE) Allergy Intermediate VOMITING Verified 06/12/25 13:12 Active Medications: Current Medications Acetaminophen (Acetaminophen 325 Mg Tablet) 650 mg PO Q6H PRN PRN Reason: Pain, Mild 1-3,fever,headache Apixaban (Apixaban 5 Mg Tablet) 5 mg PO BID [facility] Last Admin: 06/13/25 09:59 Dose: 5 mg Ascorbic Acid (Ascorbic Acid 250 Mg Tablet) 250 mg PO DAILY [facility] Last Admin: 06/13/25 09:59 Dose: 250 mg Atorvastatin Calcium (Atorvastatin Calcium 80 Mg Tablet) 80 mg PO BEDTIME [facility] Last Admin: 06/12/25 20:36 Dose: 80 mg Bupropion HCl (Bupropion Hcl Xl 300 Mg Tab.Er.24h) 300 mg PO DAILY [facility] Last Admin: 06/13/25 09:59 Dose: 300 mg Docusate Sodium (Docusate Sodium 100 Mg/10 Ml Liquid) 50 mg PO DAILY [facility] Last Admin: 06/13/25 10:02 Dose: 50 mg Duloxetine HCl (Duloxetine Hcl 60 Mg Capsule.) 60 mg PO DAILY [facility] Last Admin: 06/13/25 09:59 Dose: 60 mg Escitalopram Oxalate (Escitalopram Oxalate 20 Mg Tablet) 20 mg PO DAILY [facility] Last Admin: 06/13/25 09:59 Dose: 20 mg Ferrous Sulfate (Ferrous Sulfate 324 Mg Tablet.) 324 mg PO DAILY [facility] Last Admin: 06/13/25 09:59 Dose: 324 mg Lisinopril (Lisinopril 20 Mg Tablet) 20 mg PO DAILY [facility]; Protocol Last Admin: 06/13/25 10:01 Dose: 20 mg Melatonin (Melatonin 3 Mg Tablet) 6 mg PO BEDTIME PRN PRN Reason: Insomnia Metoprolol Tartrate (Metoprolol Tartrate 50 Mg Tablet) 50 mg PO BID [facility]; Protocol Last Admin: 06/13/25 10:01 Dose: 50 mg Mirabegron (Mirabegron 50 Mg Tab.Er.24h) 50 mg PO DAILY [facility] Last Admin: 06/13/25 09:59 Dose: 50 mg Montelukast Sodium (Montelukast Sodium 10 Mg Tablet) 10 mg PO BEDTIME [facility] Last Admin: 06/12/25 20:37 Dose: 10 mg Multivitamins/Vitamin C (Multivitamin Tablet) 1 tab PO DAILY [facility] Last Admin: 06/13/25 09:59 Dose: 1 tab Olanzapine (Olanzapine 2.5 Mg Tablet) 2.5 mg PO BID [facility] Last Admin: 06/13/25 14:44 Dose: 2.5 mg Olanzapine (Olanzapine 2.5 Mg Tablet) 2.5 mg PO Q6H PRN PRN Reason: psychosis/agitation Oxycodone HCl (Oxycodone Hcl Immed Release 5 Mg Tablet) 10 mg PO Q4H PRN PRN Reason: Severe Pain (Scale Score 7-10) Last Admin: 06/13/25 14:44 Dose: 10 mg Pregabalin (Pregabalin 50 Mg Capsule) 50 mg PO DAILY [facility] Last Admin: 06/13/25 09:59 Dose: 50 mg Senna (Sennosides 8.6 Mg Tablet) 8.6 mg PO DAILY PRN PRN Reason: Constipation Sodium Chloride (0.9 % Sodium Chloride Flush 3 Ml Syringe) [address] [facility] Home Medications ?Medication ?Instructions ?Recorded ?Confirmed ?Last Taken ?Type apixaban 5 mg tablet (Eliquis) 5 mg PO BID 06/12/25 06/12/25 Unknown History ascorbic acid (vitamin C) 250 mg 250 mg PO DAILY 06/12/25 06/12/25 Unknown History tablet bupropion HCl 150 mg tablet,12 hr 150 mg PO BID 06/12/25 06/12/25 Unknown History sustained-release docusate sodium 50 mg capsule 50 mg PO DAILY 06/12/25 06/12/25 Unknown History duloxetine 60 mg capsule,delayed 60 mg PO DAILY 06/12/25 06/12/25 Unknown History release escitalopram oxalate 20 mg tablet 20 mg PO DAILY 06/12/25 06/12/25 Unknown History escitalopram oxalate 20 mg tablet 20 mg PO DAILY 06/12/25 06/12/25 Unknown History ferrous sulfate 325 mg (65 mg 325 mg PO DAILY 06/12/25 06/12/25 Unknown History iron) tablet lisinopril 5 mg tablet 20 mg PO DAILY 06/12/25 06/12/25 Unknown History metoprolol tartrate 25 mg tablet 50 mg PO BID 06/12/25 06/12/25 Unknown History mirabegron 50 mg tablet,extended 50 mg PO QAM 06/12/25 06/12/25 Unknown History release 24 hr (Myrbetriq) montelukast 10 mg tablet 10 mg PO BEDTIME 06/12/25 06/12/25 Unknown History multivitamin 1 tab PO DAILY 06/12/25 06/12/25 Unknown History oxycodone 5 mg tablet 10 mg PO Q4H PRN Severe Pain 06/12/25 06/12/25 Unknown History (Scale Score 7-10) phentermine 15 mg capsule 15 mg PO BID 06/12/25 06/12/25 Unknown History pregabalin 50 mg capsule (Lyrica) 50 mg PO DAILY 06/12/25 06/12/25 Unknown History rosuvastatin 40 mg tablet 40 mg PO BEDTIME 06/12/25 06/12/25 Unknown History sennosides 8.6 mg tablet (senna) 8.6 mg PO DAILY PRN Constipation 06/12/25 06/12/25 Unknown History Physical Exam Vital Signs and Narrative: Vital Signs: Last Vital Signs Temp 97.6 F 06/13/25 14:45 Pulse 86 06/13/25 14:45 Resp 18 06/13/25 14:45 BP 121/72 06/13/25 14:45 Pulse Ox 95 06/13/25 14:45 O2 Del Method Room Air 06/13/25 14:45 BMI result Body Mass Index 44.9 Const: General: cooperative, comfortable, no acute distress, alert and awake Nutritional Appearance: obese Orientation/consciousness: oriented to person and oriented to place Resp: Effort & Inspection: normal respiratory effort, able to speak in complete sentences, no respiratory distress and no use of accessory muscles Cardio: Rate: regular rate GI: Inspection: No distended and Yes obesity Palpation (GI): Soft to palpation Neuro: General: oriented to person, oriented to place, moves all extremities and CN's II-XI intact bilaterally Extrem: General: No pedal edema Psych: Other: no hallucinations Appearance: grossly normal Speech and movement: Normal speech and movement present Affect: normal affect Attitude: cooperative Results Labs 06/12/25 13:34 06/12/25 13:34 Labs: Laboratory Results - last 24 hr 06/12/25 06/12/25 06/12/25 13:34 16:09 16:44 Lactic Acid F/U @ 2Hr 1.5 Ammonia TSH 1.08 Urine Color Dark Yellow Urine Appearance Cloudy Urine pH 5.5 Ur Specific [place] >= 1.030 H Urine Protein Trace Urine Glucose (UA) Negative Urine Ketones 15 Urine Blood Negative Urine Nitrite Negative Ur Leukocyte Esterase Trace H Urine RBC 0-2 Urine WBC 0-5 Ur Squamous Epith Cells 3-5 Calcium Oxalate Crystal Present Other Crystals Present Urine Bacteria None Seen Hyaline Casts 6-10 Urine Opiates Screen POSITIVE H Ur Buprenorphine Scrn Not Detected Ur Oxycodone Screen Positive H Urine Methadone Screen Not Detected Urine Fentanyl Screen Not Detected Ur Barbiturates Screen Not Detected Ur Phencyclidine Scrn Not Detected Ur Amphetamines Screen POSITIVE H U Benzodiazepines Scrn Not Detected Urine Cocaine Screen Not Detected U Marijuana (THC) Screen Not Detected 06/12/25 18:51 Lactic Acid F/U @ 2Hr Ammonia 21 TSH Urine Color Urine Appearance Urine pH Ur Specific [place] Urine Protein Urine Glucose (UA) Urine Ketones Urine Blood Urine Nitrite Ur Leukocyte Esterase Urine RBC Urine WBC Ur Squamous Epith Cells Calcium Oxalate Crystal Other Crystals Urine Bacteria Hyaline Casts Urine Opiates Screen Ur Buprenorphine Scrn Ur Oxycodone Screen Urine Methadone Screen Urine Fentanyl Screen Ur Barbiturates Screen Ur Phencyclidine Scrn Ur Amphetamines Screen U Benzodiazepines Scrn Urine Cocaine Screen U Marijuana (THC) Screen Assessment and Plan (1) DEANNA (obstructive sleep apnea): Status: Acute (2) Confusion: Status: Acute Plan This is a 79-year-old male with history of atrial fibrillation on Eliquis, COPD, DEANNA on BiPAP, depression, obesity, GERD sent to the emergency department due to agitation found to be hallucinate Hallucinations Unclear chronicity, ED documentation indicates history of hallucination Medical workup in the emergency department unremarkable thus far Seen by psychiatric team, Neurology consult recommend, started on olanzapine Not actively hallucinating at this time check vbg to rule out hypercarbia Chronic atrial fibrillation Continue metoprolol, Eliquis mood continue wellbutrin, lexapro and olanzapine HTN bp stable continue lopressor, lisinopril chronic pain Continue oxycodone, cymbalta, lyrica DEANNA on bipap at night and with naps continue bipap DVT prophylaxis-eliquis code status - full code Quality Stroke Does the patient have a stroke diagnosis?: No VTE Prior VTE?: No VTE Risk Level:: Medical - moderate - high VTE Device Contraindication: N/A - Device Ordered VTE Drug Contraindication: N/A - Med Ordered
[2025-06-13 17:57] LABS: VBG HCO3 25 mmol/L (22-26); VBG O2 % Saturation 99.0 %
[2025-06-13 17:59] LABS: Venous Blood Gas Refer to POC result
--- NOTE | 2025-06-13 19:42 | MHC.EDTECH ---
i asked the patient about hearing aids, dentures, glasses or contacts, i see NO jewerly or any personal belongings on the patient, at the patients bed side or in the patients room, also patient stated he has none of the above.
[2025-06-13 21:00] VITALS: BMI 40.9
[2025-06-13] MEDS: 0.9 % Sodium Chloride Flush 3 ML SYRINGE IVFLUSH (21:47)
[2025-06-13 22:00] VITALS: BP 113/73; PULSE 87; RESP 18; TEMP 36.5; O2SAT 95
--- NOTE | 2025-06-14 | EEG_ITS ---
Reason For EEG: Encephalopathy Medications:apixaban, bupropion, ducusate sodium, duloxetine, escitalopram, escitalopram, ferrous sulfate, lisinopril, mirabegron, montelukast, metoprolol History: past medical history of AFib who is anticoagulated, COPD, anxiety, depression, sleep apnea, hypertension, GERD, here from [facility] with concern for AMS, agitation x24 hrs. Patient here yesterday or mechanical fall with negative CT head/cervical spine. 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 Patient is reported awake during the tracing. Background EEG rhythm is mixed theta beta with low amplitude of 5 to 20 microvolt with no obvious asymmetry or paroxysmal tendency. Photic stimulation does not produce any significant driving. Cardiac lead does not reveal any significant abnormality. No sharp wave spikes or paroxysmal tendency noted. Impression: Generalized slowing with no epileptic discharges MTDD
[2025-06-14 03:29] VITALS: BP 115/63; PULSE 95; RESP 18; TEMP 36.8; O2SAT 94
[2025-06-14 06:52] VITALS: BP 122/68; PULSE 88; RESP 18; TEMP 36.4; O2SAT 91
--- NOTE | 2025-06-14 08:04 | P.PNIM_ITS ---
Subjective Subjective Date of Service: 06/14/25 Interval History: ? hallucination -resolved ( did not endorse any) Review of Systems no new c/o . seems near baseline ,no new hallucinations Review of Systems: Yes all other systems are reviewed and are negative Physical Exam 2 Exam: Exam: Appearance: awake ,alert ,near baseline. cvs: rrr, [id number] , no murmur res: clear to auscultation ,no rhonchii or wheezing abd: no rebound or guarding ,nt, bs present. ext pulses present , no cyanosis . neuro: axo3 , nonfocal. Vital Signs: Vital Signs: Last Vital Signs Temp 97.6 F 06/14/25 06:52 Pulse 88 06/14/25 06:52 Resp 18 06/14/25 06:52 BP 122/68 06/14/25 06:52 Pulse Ox 91 L 06/14/25 06:52 O2 Del Method Room Air 06/14/25 06:52 BMI result Body Mass Index 40.9 Appearance: Alert.? Oriented X3.? cvs: rrr, [id number] . res: clear to auscultation ,no rhonchii or wheezing abd: no rebound or guarding ,nt, bs present. ext pulses present , no cyanosis. neuro: axo3 , nonfocal. Objective Data Active Medications Acetaminophen (Acetaminophen 325 Mg Tablet) 650 mg PO Q6H PRN PRN Reason: Pain, Mild 1-3,fever,headache Apixaban (Apixaban 5 Mg Tablet) 5 mg PO BID [facility] Last Admin: 06/13/25 21:45 Dose: 5 mg Documented By: THELMA Ascorbic Acid (Ascorbic Acid 250 Mg Tablet) 250 mg PO DAILY [facility] Last Admin: 06/13/25 09:59 Dose: 250 mg Documented By: MARK Atorvastatin Calcium (Atorvastatin Calcium 80 Mg Tablet) 80 mg PO BEDTIME [facility] Last Admin: 06/13/25 21:45 Dose: 80 mg Documented By: THELMA Bupropion HCl (Bupropion Hcl Xl 300 Mg Tab.Er.24h) 300 mg PO DAILY [facility] Last Admin: 06/13/25 09:59 Dose: 300 mg Documented By: MARK Calcium Carbonate (Calcium Carbonate 750 Mg Tab.Chew) 750 mg PO Q4H PRN PRN Reason: Heartburn Docusate Sodium (Docusate Sodium 100 Mg/10 Ml Liquid) 50 mg PO DAILY [facility] Last Admin: 06/13/25 10:02 Dose: 50 mg Documented By: MARK Duloxetine HCl (Duloxetine Hcl 60 Mg Capsule.) 60 mg PO DAILY [facility] Last Admin: 06/13/25 09:59 Dose: 60 mg Documented By: MARK Escitalopram Oxalate (Escitalopram Oxalate 20 Mg Tablet) 20 mg PO DAILY [facility] Last Admin: 06/13/25 09:59 Dose: 20 mg Documented By: MARK Ferrous Sulfate (Ferrous Sulfate 324 Mg Tablet.) 324 mg PO DAILY [facility] Last Admin: 06/13/25 09:59 Dose: 324 mg Documented By: MARK Lisinopril (Lisinopril 20 Mg Tablet) 20 mg PO DAILY [facility]; Protocol Last Admin: 06/13/25 10:01 Dose: 20 mg Documented By: MARK Magnesium Hydroxide (Milk Of Magnesia 30 Ml Oral.Susp) 30 ml PO DAILY PRN PRN Reason: Constipation Melatonin (Melatonin 3 Mg Tablet) 6 mg PO BEDTIME PRN PRN Reason: Insomnia Metoprolol Tartrate (Metoprolol Tartrate 50 Mg Tablet) 50 mg PO BID [facility]; Protocol Last Admin: 06/13/25 21:45 Dose: 50 mg Documented By: THELMA Mirabegron (Mirabegron 50 Mg Tab.Er.24h) 50 mg PO DAILY [facility] Last Admin: 06/13/25 09:59 Dose: 50 mg Documented By: MARK Montelukast Sodium (Montelukast Sodium 10 Mg Tablet) 10 mg PO BEDTIME [facility] Last Admin: 06/13/25 21:45 Dose: 10 mg Documented By: THELMA Multivitamins/Vitamin C (Multivitamin Tablet) 1 tab PO DAILY [facility] Last Admin: 06/13/25 09:59 Dose: 1 tab Documented By: MARK Olanzapine (Olanzapine 2.5 Mg Tablet) 2.5 mg PO BID [facility] Last Admin: 06/13/25 21:45 Dose: 2.5 mg Documented By: THELMA Olanzapine (Olanzapine 2.5 Mg Tablet) 2.5 mg PO Q6H PRN PRN Reason: psychosis/agitation Oxycodone HCl (Oxycodone Hcl Immed Release 5 Mg Tablet) 10 mg PO Q4H PRN PRN Reason: Severe Pain (Scale Score 7-10) Last Admin: 06/13/25 14:44 Dose: 10 mg Documented By: MARK Pregabalin (Pregabalin 50 Mg Capsule) 50 mg PO DAILY [facility] Last Admin: 06/13/25 09:59 Dose: 50 mg Documented By: MARK Senna (Sennosides 8.6 Mg Tablet) 8.6 mg PO DAILY PRN PRN Reason: Constipation Sodium Chloride (0.9 % Sodium Chloride Flush 3 Ml Syringe) 3 ml IVFLUSH QSHIFT [facility] Last Admin: 06/13/25 21:47 Dose: 3 ml Documented By: THELMA Labs 06/12/25 13:34 06/12/25 13:34 Labs: Laboratory Results - last 24 hr 06/13/25 17:53 VBG pH 7.49 H VBG pCO2 33 VBG pO2 90 VBG HCO3 25 VBG O2 Saturation 99.0 VBG Base Excess 2.9 Microbiology Microbiology Results: Microbiology 06/12/25 13:34 Blood Culture - Preliminary Blood - Venous No growth after 24 hours. 06/12/25 13:34 Blood Culture - Preliminary Blood - Venous No growth after 24 hours. Assessment and Plan (1) Confusion: Status: Acute Assessment and Plan: 79-year-old male with history of atrial fibrillation on Eliquis, COPD, DEANNA on BiPAP, depression, obesity, GERD sent to the emergency department due to agitation found to be hallucinate Hallucinations Unclear chronicity, ED documentation indicates history of hallucination Medical workup in the emergency department unremarkable thus far Seen by psychiatric team, Neurology consult recommend-eeg , need psych follow up for psych meds? Not actively hallucinating at this time Chronic atrial fibrillation Continue metoprolol, Eliquis mood continue wellbutrin, lexapro and olanzapine HTN bp stable continue lopressor, lisinopril chronic pain Continue oxycodone, cymbalta, lyrica DEANNA on bipap at night and with naps continue bipap DVT prophylaxis-eliquis. code status - full code ongoing need:awaiting neurology workup and psych followup. Quality Stroke Does the patient have a stroke diagnosis?: No VTE Prior VTE?: No VTE Risk Level:: Medical - moderate - high VTE Device Contraindication: N/A - Device Ordered VTE Drug Contraindication: N/A - Med Ordered
[2025-06-14] MEDS: oxyCODONE HCl Immed Release 5 MG TABLET 10 MG PO ×3 (08:42→17:15)
[2025-06-14] MEDS: buPROPion HCl XL 300 MG TAB.ER.24H PO (08:42)
[2025-06-14] MEDS: Ferrous Sulfate 324 MG TABLET.DR PO (08:43)
[2025-06-14] MEDS: Mirabegron 50 MG TAB.ER.24H PO (08:43)
[2025-06-14] MEDS: 0.9 % Sodium Chloride Flush 3 ML SYRINGE IVFLUSH ×3 (08:47→19:47)
--- NOTE | 2025-06-14 10:09 | PM.NEUROCN ---
History of Present Illness Data of Consult Service Date: 06/14/25 Primary Care Provider: Unknown Physician HPI Reason for consult: Hallucination 79 years old man who probably resides in the correction was brought to hospital with change in mental status in hallucinations. When I saw him, he was comfortably talking but did not know how long he has been here and what was the problem. When I talked to him about possible hallucinations, he did not know. He denied any discomfort or pain or headache. He denied any seizure disorder. He has been taking multiple medicines including multiple antidepressants. He did not have any recent fever or chills. Review of Systems Review of Systems: As per HPI [facility] Past Medical History Medical History Anxiety Atrial fibrillation Social History Social History Household Members: Spouse and Significant Other Housing: House Do you presently have visiting nurse or other home services: No Patient Tobacco Use Status: Former Tobacco user Meds Allergies Allergy/AdvReac Type Severity Reaction Status Date / Time morphine (MORPHINE) Allergy Intermediate VOMITING Verified 06/12/25 13:12 Active Medications: Current Medications Acetaminophen (Acetaminophen 325 Mg Tablet) 650 mg PO Q6H PRN PRN Reason: Pain, Mild 1-3,fever,headache Apixaban (Apixaban 5 Mg Tablet) 5 mg PO BID [facility] Last Admin: 06/14/25 08:42 Dose: 5 mg Ascorbic Acid (Ascorbic Acid 250 Mg Tablet) 250 mg PO DAILY [facility] Last Admin: 06/14/25 08:42 Dose: 250 mg Atorvastatin Calcium (Atorvastatin Calcium 80 Mg Tablet) 80 mg PO BEDTIME [facility] Last Admin: 06/13/25 21:45 Dose: 80 mg Bupropion HCl (Bupropion Hcl Xl 300 Mg Tab.Er.24h) 300 mg PO DAILY [facility] Last Admin: 06/14/25 08:42 Dose: 300 mg Calcium Carbonate (Calcium Carbonate 750 Mg Tab.Chew) 750 mg PO Q4H PRN PRN Reason: Heartburn Docusate Sodium (Docusate Sodium 100 Mg/10 Ml Liquid) 50 mg PO DAILY [facility] Last Admin: 06/14/25 08:43 Dose: 50 mg Duloxetine HCl (Duloxetine Hcl 60 Mg Capsule.Dr) 60 mg PO DAILY [facility] Last Admin: 06/14/25 08:43 Dose: 60 mg Escitalopram Oxalate (Escitalopram Oxalate 20 Mg Tablet) 20 mg PO DAILY [facility] Last Admin: 06/14/25 08:43 Dose: 20 mg Ferrous Sulfate (Ferrous Sulfate 324 Mg Tablet.Dr) 324 mg PO DAILY [facility] Last Admin: 06/14/25 08:43 Dose: 324 mg Lisinopril (Lisinopril 20 Mg Tablet) 20 mg PO DAILY [facility]; Protocol Last Admin: 06/14/25 08:43 Dose: 20 mg Magnesium Hydroxide (Milk Of Magnesia 30 Ml Oral.Susp) 30 ml PO DAILY PRN PRN Reason: Constipation Melatonin (Melatonin 3 Mg Tablet) 6 mg PO BEDTIME PRN PRN Reason: Insomnia Metoprolol Tartrate (Metoprolol Tartrate 50 Mg Tablet) 50 mg PO BID [facility]; Protocol Last Admin: 06/14/25 08:43 Dose: 50 mg Mirabegron (Mirabegron 50 Mg Tab.Er.24h) 50 mg PO DAILY [facility] Last Admin: 06/14/25 08:43 Dose: 50 mg Montelukast Sodium (Montelukast Sodium 10 Mg Tablet) 10 mg PO BEDTIME [facility] Last Admin: 06/13/25 21:45 Dose: 10 mg Multivitamins/Vitamin C (Multivitamin Tablet) 1 tab PO DAILY [facility] Last Admin: 06/14/25 08:43 Dose: 1 tab Olanzapine (Olanzapine 2.5 Mg Tablet) 2.5 mg PO BID [facility] Last Admin: 06/14/25 08:42 Dose: 2.5 mg Olanzapine (Olanzapine 2.5 Mg Tablet) 2.5 mg PO Q6H PRN PRN Reason: psychosis/agitation Oxycodone HCl (Oxycodone Hcl Immed Release 5 Mg Tablet) 10 mg PO Q4H PRN PRN Reason: Severe Pain (Scale Score 7-10) Last Admin: 06/14/25 08:42 Dose: 10 mg Pregabalin (Pregabalin 50 Mg Capsule) 50 mg PO DAILY [facility] Last Admin: 06/14/25 08:42 Dose: 50 mg Senna (Sennosides 8.6 Mg Tablet) 8.6 mg PO DAILY PRN PRN Reason: Constipation Sodium Chloride (0.9 % Sodium Chloride Flush 3 Ml Syringe) [facility] Last Admin: 06/14/25 08:47 Dose: 3 ml Home Medications ?Medication ?Instructions ?Recorded ?Confirmed ?Last Taken ?Type apixaban 5 mg tablet (Eliquis) 5 mg PO BID 06/12/25 06/12/25 Unknown History ascorbic acid (vitamin C) 250 mg 250 mg PO DAILY 06/12/25 06/12/25 Unknown History tablet bupropion HCl 150 mg tablet,12 hr 150 mg PO BID 06/12/25 06/12/25 Unknown History sustained-release docusate sodium 50 mg capsule 50 mg PO DAILY 06/12/25 06/12/25 Unknown History duloxetine 60 mg capsule,delayed 60 mg PO DAILY 06/12/25 06/12/25 Unknown History release escitalopram oxalate 20 mg tablet 20 mg PO DAILY 06/12/25 06/12/25 Unknown History escitalopram oxalate 20 mg tablet 20 mg PO DAILY 06/12/25 06/12/25 Unknown History ferrous sulfate 325 mg (65 mg 325 mg PO DAILY 06/12/25 06/12/25 Unknown History iron) tablet lisinopril 5 mg tablet 20 mg PO DAILY 06/12/25 06/12/25 Unknown History metoprolol tartrate 25 mg tablet 50 mg PO BID 06/12/25 06/12/25 Unknown History mirabegron 50 mg tablet,extended 50 mg PO QAM 06/12/25 06/12/25 Unknown History release 24 hr (Myrbetriq) montelukast 10 mg tablet 10 mg PO BEDTIME 06/12/25 06/12/25 Unknown History multivitamin 1 tab PO DAILY 06/12/25 06/12/25 Unknown History oxycodone 5 mg tablet 10 mg PO Q4H PRN Severe Pain 06/12/25 06/12/25 Unknown History (Scale Score 7-10) phentermine 15 mg capsule 15 mg PO BID 06/12/25 06/12/25 Unknown History pregabalin 50 mg capsule (Lyrica) 50 mg PO DAILY 06/12/25 06/12/25 Unknown History rosuvastatin 40 mg tablet 40 mg PO BEDTIME 06/12/25 06/12/25 Unknown History sennosides 8.6 mg tablet (senna) 8.6 mg PO DAILY PRN Constipation 06/12/25 06/12/25 Unknown History Physical Exam Vital Signs: Vital Signs: Last Vital Signs Temp 97.6 F 06/14/25 06:52 Pulse 88 06/14/25 06:52 Resp 18 06/14/25 06:52 BP 122/68 06/14/25 06:52 Pulse Ox 91 L 06/14/25 06:52 O2 Del Method Room Air 06/14/25 06:52 BMI result Body Mass Index 40.9 Neuro: Other: He is alert and awake with normal spontaneity of speech fluency comprehension and vague affect. Face is symmetrical. Visual ndiaye are full. There was no focal weakness. Deep tendon reflexes are absent with flexor plantars. He knew where he was but did not know how long he has been here. Results Labs 06/12/25 13:34 06/12/25 13:34 Labs: Head CT did not reveal any significant abnormality. Microbiology Microbiology Results: Microbiology 06/12/25 13:34 Blood - Venous Blood Culture - Preliminary No growth after 24 hours. 06/12/25 13:34 Blood - Venous Blood Culture - Preliminary No growth after 24 hours. Assessment and Plan (1) Delirium: Status: Acute 79 years old man who probably suffered from encephalopathy related to either prescription medicine or some kind of chemical. Other possibilities would include developing dementia, or seizure disorder. I recommend also doing an EEG while he was here but otherwise continue to follow him clinically. As far as hallucinations are concerned, as far as there benign and not interfere with his care, the can be ignore and not necessarily treated with a medicine. Procedures Date of Service Date of Service: 06/14/25
--- NOTE | 2025-06-14 15:42 | MHC.CM.PN ---
PT SENT IN FROM [facility] WHERE HE WAS FOR STR CM MET WITH PT AND AT BEDSIDE PT WAS INITIALLY SENT TO [facility] FROM [place] AROUND March, HE THEN WENT OUT TO [facility] AND WAS SENT TO [facility] ABOUT 3 WEEKS AGO PRIOR TO GOING TO [place], PT WAS LIVING AT HOME AND WAS ASSISTING WITH CARE HE WAS USING A WALKER ALTHOUGH SAYS HE WAS NOT WALKING RIGHT BEFORE HIS FIRST HOSPITAL ADMISSION COPY OF HCP REQUESTED PCP: FAHAD TONY OBSERVATION NOTICE DELIVERED CURRENTLY, [facility] IS SAYING THEY WILL NOT TAKE PT BACK DUE TO NON-COMPLIANCE WITH TREATMENT PT AND FAMILY UPSET BY THIS AND REPORT PT WAS TRYING TO WEAR HIS BIPAP BUT WAS HAVING A HARD TIME GETTING USED TO IT IT IS FAIRLY NEW TO HIM (SINCE [facility] ADMISSION) UPDATES SENT TO [facility] ALONG WITH PT/FAMILY REQUESTS FOR RECONSIDERATION PT WILL NEED BLS TRANSPORT TO STR AT [facility] OR [facility]
[2025-06-14 17:07] VITALS: BP 90/52; PULSE 87; RESP 18; TEMP 36.6; O2SAT 93
--- NOTE | 2025-06-14 18:09 | P.CNPS_ITS ---
History of Present Illness Date of Service: 06/14/25 Chief Complaint: AMS Reason for Consult: ? discharge plan for psychiatric Requesting physician: Rafa Vaughan Discussed with referring provider: Yes Sources of Information: patient interviewed, chart reviewed and crisis/core team assessment reviewed HPI Narrative: Per ED note on 06/12: 79-year-old male who has a past medical history of AFib who is anticoagulated, COPD, anxiety, depression, sleep apnea, hypertension, GERD, here from [facility] with concern for AMS, agitation x24 hrs. Patient here for mechanical fall with negative CT head/cervical spine. On review of ER note there was a note that patient had been hallucinating which consult was placed on 06/13. Patient was seen by Dr Jones with suggestions/recommended the following Patient has not been hallucinating in recent hours (received olanzapine 2.5 mg at approx 2pm) No clear explanation for delirium/presentation that is either resolving (with unknown cause), fluctuating (as can happen with delirium) or still present but medication has alleviated symptoms (hallucinations) without knowing the cause. The only way to separate these out is time. Recommendation: - if STR and family are comfortable with patient returning understanding the above, then would continue olanzapine 2.5mg prn q 6hours (do not schedule) - if symptoms persist after discharge, would rec neurology follow up - no current need for further psychiatric input Past Psychiatric History: Denied outside of above. Is on lexapro Personal & Social History: He is , living with who is retired RN and she is the one that taking of his medication per patient own report. They have a daughter. Report his and his daugther are very supportive. Report they come to hospital to visit him today. He pointed the chair saying his granddaughter also was there earlier today to visit him Review of Systems Review of Systems No SOB. NO N/V. Denies pain. No cough. [facility] Medical History Anxiety Atrial fibrillation Family History: and daughter are supportive Social History: per chart collateral The patient initially resided with his , dog, and two cats. Due to recent falls, he has been receiving treatment at [facility] since April 2025. 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 He is also reported to be oriented to time and place. Substance History: Not discuss Trauma History: not discuss Diagnostics Vital Signs (24Hr): Vital Signs - 24 hr 06/13/25 22:00 06/14/25 03:29 06/14/25 06:52 Temperature 97.7 F 98.2 F 97.6 F Pulse Rate 87 95 88 Respiratory Rate 18 18 18 Blood Pressure 113/73 115/63 122/68 Pulse Oximetry 95 94 91 L Oxygen Delivery Method Room Air Room Air Room Air 06/14/25 17:07 Temperature 97.9 F Pulse Rate 87 Respiratory Rate 18 Blood Pressure 90/52 L Pulse Oximetry 93 Oxygen Delivery Method Room Air BMI result Body Mass Index 40.9 Labs 06/12/25 13:34 06/12/25 13:34 Labs: Laboratory Results - last 48 hr 06/12/25 06/13/25 18:51 17:53 VBG pH 7.49 H VBG pCO2 33 VBG pO2 90 VBG HCO3 25 VBG O2 Saturation 99.0 VBG Base Excess 2.9 Ammonia 21 Mental Status Exam Mental Status Exam Narrative: Patient is alert and Oriented x3. He knows his and where he is at at this current time- [facility] and in the hospital. He is aware of reason for being brought to the hospital I fell and hit my head . Denies pain. He is not sure if he would be return home or come back to rehab facility. He is happy, no anxiety/depression, social and appropriate. No SI/SIB/HI/AVH. No delusional or paranoid statement made. Do not appear responding to internal stimuli. Memory appears to be intact with mild cognitve decline which could be at baseline and age appropriate. Judgement and Insight: fair Medications Medications Current Medications Acetaminophen (Acetaminophen 325 Mg Tablet) 650 mg PO Q6H PRN PRN Reason: Pain, Mild 1-3,fever,headache Last Admin: 06/14/25 17:15 Dose: 650 mg Apixaban (Apixaban 5 Mg Tablet) 5 mg PO BID [facility] Last Admin: 06/14/25 08:42 Dose: 5 mg Ascorbic Acid (Ascorbic Acid 250 Mg Tablet) 250 mg PO DAILY [facility] Last Admin: 06/14/25 08:42 Dose: 250 mg Atorvastatin Calcium (Atorvastatin Calcium 80 Mg Tablet) 80 mg PO BEDTIME [facility] Last Admin: 06/13/25 21:45 Dose: 80 mg Bupropion HCl (Bupropion Hcl Xl 300 Mg Tab.Er.24h) 300 mg PO DAILY [facility] Last Admin: 06/14/25 08:42 Dose: 300 mg Calcium Carbonate (Calcium Carbonate 750 Mg Tab.Chew) 750 mg PO Q4H PRN PRN Reason: Heartburn Docusate Sodium (Docusate Sodium 100 Mg/10 Ml Liquid) 50 mg PO DAILY [facility] Last Admin: 06/14/25 08:43 Dose: 50 mg Duloxetine HCl (Duloxetine Hcl 60 Mg Capsule.Dr) 60 mg PO DAILY [facility] Last Admin: 06/14/25 08:43 Dose: 60 mg Escitalopram Oxalate (Escitalopram Oxalate 20 Mg Tablet) 20 mg PO DAILY [facility] Last Admin: 06/14/25 08:43 Dose: 20 mg Ferrous Sulfate (Ferrous Sulfate 324 Mg Tablet.Dr) 324 mg PO DAILY [facility] Last Admin: 06/14/25 08:43 Dose: 324 mg Lisinopril (Lisinopril 20 Mg Tablet) 20 mg PO DAILY [facility]; Protocol On Hold: 06/14/25 17:41 Last Admin: 06/14/25 08:43 Dose: 20 mg Magnesium Hydroxide (Milk Of Magnesia 30 Ml Oral.Susp) 30 ml PO DAILY PRN PRN Reason: Constipation Melatonin (Melatonin 3 Mg Tablet) 6 mg PO BEDTIME PRN PRN Reason: Insomnia Metoprolol Tartrate (Metoprolol Tartrate 50 Mg Tablet) 50 mg PO BID [facility]; Protocol Last Admin: 06/14/25 08:43 Dose: 50 mg Mirabegron (Mirabegron 50 Mg Tab.Er.24h) 50 mg PO DAILY [facility] Last Admin: 06/14/25 08:43 Dose: 50 mg Montelukast Sodium (Montelukast Sodium 10 Mg Tablet) 10 mg PO BEDTIME [facility] Last Admin: 06/13/25 21:45 Dose: 10 mg Multivitamins/Vitamin C (Multivitamin Tablet) 1 tab PO DAILY [facility] Last Admin: 06/14/25 08:43 Dose: 1 tab Oxycodone HCl (Oxycodone Hcl Immed Release 5 Mg Tablet) 10 mg PO Q4H PRN PRN Reason: Severe Pain (Scale Score 7-10) Last Admin: 06/14/25 17:15 Dose: 10 mg Pregabalin (Pregabalin 50 Mg Capsule) 50 mg PO DAILY [facility] Last Admin: 06/14/25 08:42 Dose: 50 mg Senna (Sennosides 8.6 Mg Tablet) 8.6 mg PO DAILY PRN PRN Reason: Constipation Sodium Chloride (0.9 % Sodium Chloride Flush 3 Ml Syringe) 3 ml IVFLUSH QSHIFT [facility] Last Admin: 06/14/25 17:16 Dose: 3 ml Allergies Allergies Allergy/AdvReac Type Severity Reaction Status Date / Time morphine (MORPHINE) Allergy Intermediate VOMITING Verified 06/12/25 13:12 Assessment & Plan Assessment & Plan (1) Hallucination: Status: Acute Code(s): R44.3 - Hallucinations, unspecified Plan Meet with patient in his room. He jsut got EEG done. He is alert and orientedx3, knowing the situation led to hospital. He is happy, no anxiety, depresion. Denies SI/SIB/HI/AVH. Denies hallucination. Do not appear to be responded to internal stimuili. Do not appears to be psychotic. Memory is intact with mild cognitive declined which could be at his baseline. Plan: Pending EEG result. No indication of psychiatric distress. No psychosis. No behavior issues. Patient is at baseline. No need of antipsychotics medications. Patient can be discharged home/ rehab facility and resume activities with staff and family support. Provide walker as needed for safe ambulation. Patient reports using walker at home but no walker observed in room at 1-1 assessment. Continue with home meds Discontinue Zyprexa. Total time managing care of this patient today ____ minutes. Patient educated on: therapeutic strategies Informed Consent: understands
[2025-06-14 19:25] VITALS: BP 113/54; PULSE 90; RESP 18; TEMP 36; O2SAT 93
[2025-06-15 03:04] VITALS: BP 109/55; PULSE 72; RESP 19; TEMP 36.1; O2SAT 92
[2025-06-15] MEDS: oxyCODONE HCl Immed Release 5 MG TABLET 10 MG PO ×4 (03:15→21:32)
[2025-06-15 07:32] VITALS: BP 97/47; PULSE 89; RESP 18; TEMP 36.4; O2SAT 92
[2025-06-15] MEDS: buPROPion HCl XL 300 MG TAB.ER.24H PO (08:18)
[2025-06-15] MEDS: Mirabegron 50 MG TAB.ER.24H PO (08:19)
[2025-06-15] MEDS: 0.9 % Sodium Chloride Flush 3 ML SYRINGE IVFLUSH ×3 (08:19→20:33)
[2025-06-15] MEDS: Ferrous Sulfate 324 MG TABLET.DR PO (08:19)
--- NOTE | 2025-06-15 13:01 | HO.PM.IMPN ---
Subjective Subjective Date of Service: 06/15/25 Interval History: deanna/copd Review of Systems no sob no confusion Physical Exam Exam: Exam: Appearance: awake ,alert ,near baseline. cvs: rrr, [id number] . res: clear to auscultation ,no rhonchii or wheezing abd: no rebound or guarding ,nt, bs present. ext pulses present , no cyanosis . neuro: axo3 , nonfocal. Vital Signs: Vital Signs: Last Vital Signs Temp 97.5 F 06/15/25 07:32 Pulse 89 06/15/25 07:32 Resp 18 06/15/25 07:32 BP 97/47 L 06/15/25 07:32 Pulse Ox 92 06/15/25 07:32 O2 Del Method Room Air 06/15/25 07:32 O2 Flow Rate 90 06/14/25 19:25 BMI result Body Mass Index 40.9 Objective Data Active Medications Acetaminophen (Acetaminophen 325 Mg Tablet) 650 mg PO Q6H PRN PRN Reason: Pain, Mild 1-3,fever,headache Last Admin: 06/15/25 10:23 Dose: 650 mg Documented By: SARAH Apixaban (Apixaban 5 Mg Tablet) 5 mg PO BID [facility] Last Admin: 06/15/25 08:19 Dose: 5 mg Documented By: SARAH Ascorbic Acid (Ascorbic Acid 250 Mg Tablet) 250 mg PO DAILY [facility] Last Admin: 06/15/25 08:18 Dose: 250 mg Documented By: SARAH Atorvastatin Calcium (Atorvastatin Calcium 80 Mg Tablet) 80 mg PO BEDTIME [facility] Last Admin: 06/14/25 19:44 Dose: 80 mg Documented By: STEFFANY Bupropion HCl (Bupropion Hcl Xl 300 Mg Tab.Er.24h) 300 mg PO DAILY [facility] Last Admin: 06/15/25 08:18 Dose: 300 mg Documented By: SARAH Calcium Carbonate (Calcium Carbonate 750 Mg Tab.Chew) 750 mg PO Q4H PRN PRN Reason: Heartburn Docusate Sodium (Docusate Sodium 100 Mg/10 Ml Liquid) 50 mg PO DAILY [facility] Last Admin: 06/15/25 08:19 Dose: 50 mg Documented By: SARAH Duloxetine HCl (Duloxetine Hcl 60 Mg Capsule.Dr) 60 mg PO DAILY [facility] Last Admin: 06/15/25 08:18 Dose: 60 mg Documented By: SARAH Escitalopram Oxalate (Escitalopram Oxalate 20 Mg Tablet) 20 mg PO DAILY [facility] Last Admin: 06/15/25 08:18 Dose: 20 mg Documented By: SARAH Ferrous Sulfate (Ferrous Sulfate 324 Mg Tablet.Dr) 324 mg PO DAILY [facility] Last Admin: 06/15/25 08:19 Dose: 324 mg Documented By: SARAH Lisinopril (Lisinopril 20 Mg Tablet) 20 mg PO DAILY [facility]; Protocol On Hold: 06/14/25 17:41 Last Admin: 06/14/25 08:43 Dose: 20 mg Documented By: SARAH Magnesium Hydroxide (Milk Of Magnesia 30 Ml Oral.Susp) 30 ml PO DAILY PRN PRN Reason: Constipation Melatonin (Melatonin 3 Mg Tablet) 6 mg PO BEDTIME PRN PRN Reason: Insomnia Metoprolol Tartrate (Metoprolol Tartrate 50 Mg Tablet) 50 mg PO BID [facility]; Protocol Last Admin: 06/15/25 08:18 Dose: 50 mg Documented By: SARAH Mirabegron (Mirabegron 50 Mg Tab.Er.24h) 50 mg PO DAILY [facility] Last Admin: 06/15/25 08:19 Dose: 50 mg Documented By: SARAH Montelukast Sodium (Montelukast Sodium 10 Mg Tablet) 10 mg PO BEDTIME [facility] Last Admin: 06/14/25 19:44 Dose: 10 mg Documented By: STEFFANY Multivitamins/Vitamin C (Multivitamin Tablet) 1 tab PO DAILY [facility] Last Admin: 06/15/25 08:19 Dose: 1 tab Documented By: SARAH Oxycodone HCl (Oxycodone Hcl Immed Release 5 Mg Tablet) 10 mg PO Q4H PRN PRN Reason: Severe Pain (Scale Score 7-10) Last Admin: 06/15/25 10:23 Dose: 10 mg Documented By: SARAH Pregabalin (Pregabalin 50 Mg Capsule) 50 mg PO DAILY [facility] Last Admin: 06/15/25 08:19 Dose: 50 mg Documented By: SARAH Senna (Sennosides 8.6 Mg Tablet) 8.6 mg PO DAILY PRN PRN Reason: Constipation Sodium Chloride (0.9 % Sodium Chloride Flush 3 Ml Syringe) 3 ml IVFLUSH QSHIFT [facility] Last Admin: 06/15/25 08:19 Dose: 3 ml Documented By: SARAH Labs 06/12/25 13:34 06/12/25 13:34 Microbiology Microbiology Results: Microbiology 06/12/25 13:34 Blood Culture - Preliminary Blood - Venous No growth after 48 hours. 06/12/25 13:34 Blood Culture - Preliminary Blood - Venous No growth after 48 hours. Assessment and Plan (1) Hallucination: Status: Acute (2) DEANNA (obstructive sleep apnea): Status: Acute Plan 79-year-old male with history of atrial fibrillation on Eliquis, COPD, DEANNA on BiPAP, depression, obesity, GERD sent to the emergency department due to agitation found to be hallucinate Hallucinations Unclear chronicity, ED documentation indicates history of hallucination Medical workup in the emergency department unremarkable thus far Seen by psychiatric team, Neurology-eeg negative , psych ortiz -off psych med. Not actively hallucinating at this time Chronic atrial fibrillation Continue metoprolol, Eliquis mood continue wellbutrin, lexapro and olanzapine HTN bp stable continue lopressor, lisinopril chronic pain Continue oxycodone, cymbalta, lyrica DEANNA on bipap at night and with naps- he has recent icu admssion for hypercarbic respiratory failure -?bipap at rehab will add cpap night sleep study pulm eval DVT prophylaxis-eliquis. code status - full code ongoing need:aawiting sleep study for possible cpap/bipap at home. Quality Stroke Does the patient have a stroke diagnosis?: No VTE Prior VTE?: No VTE Risk Level:: Medical - moderate - high VTE Device Contraindication: N/A - Device Ordered VTE Drug Contraindication: N/A - Med Ordered
--- NOTE | 2025-06-15 13:46 | HO.WOUND ---
Wound Consult: Initial 79yr old male? [place] [facility] [place] - See progress notes and H&P for detailed history.? Wound consult placed for Plantar foot area and buttock.? Patient agreeable to assessment and photo documentation.? Right Plantar Foot Etiology: Ulceration Unknown etiology non diabetic Measurements: 0.5cm x 1cm x 0.3cm Wound Bed: pink moist tissue with yellow slough noted Drainage / Odor: red yellow drainage noted on dressing no odor Edges: ? irregulr Bisi wound: callused nd intact ? No Induration, Fluctuance or Warmth noted Pain: denies and denies neuropathy +pp noted Goals of Treatment: ? Moisture management with Durafiber Buttock Etiology: Hyperpigmentation noted with small resolving area of friction Measurements: 0.2cm x 0.2cm x 0.1cm Wound Bed: resolving partial thickness tissue loss Drainage / Odor: None note Edges: ? attached Bisi wound: ? [place] intact hyperpigmented tissue remain intact and blanchable No Induration, Fluctuance or Warmth noted Pain: denies Goals of Treatment: ? Barrier cream to protect from moisture and friction Recommendations: 1. Turn and Reposition every 2 hours and as needed for patient comfort.? Use pillows or wedges to support off loading positions. 2. Off Load all bony prominences with use of pillows and heel boots if needed.? Apply Preventative foams where needed. ? 3. Monitor for incontinence and moisture control, use barrier creams when needed for prevention and treatment. 4. Provide adequate and supplemental nutrition.? 5. Order Bariatric bed from basement. 6. When applicable maintain blood glucose levels per Providers order. Buttock - Off Load Pressure with Q2 hr turns and use of pillows - Cleanse with PH balance spray or wipes, pat dry. ?Apply thin layer of barrier cream to affected area.? Apply twice daily and Reapply thin layer PRN after each episode of incontinence. Right foot - Off Load Pressure with limited walking and elevate heels off of bed surface with use of pillows Cleanse and irrigate with NS, Pat dry.? Apply barrier to periwound, lightly pack with Durafiber AG, be sure to leave a wick to easy removal.? Cover with Foam dressing.? Change every other day. Re-consult wound care Nurse for wound deterioration or wound changes.
--- NOTE | 2025-06-15 13:47 | MHC.CM.PN ---
EMR REVIEWED AND PER MD ROUNDS, PT WILL HAVE AN OVERNIGHT SLEEP STUDY FOR HOME BI-PAP/C-PAP NEED. IS NOW DECLINING ALL REHAB EXCEPT [facility] ([facility] DECLINED TAKING PT BACK) WILL NOW BRING PT HOME AND REQUESTS [facility] FOR HOME SERVICES. PT WILL REQUIRE BLS TRANSPORT. CM WILL CONTINUE TO FOLLOW FOR ANY CHANGE TO THIS PLAN.
[2025-06-15 15:27] VITALS: BP 120/67; PULSE 87; RESP 18; TEMP 36.9; O2SAT 95
[2025-06-15 19:02] VITALS: BP 127/68; PULSE 91; RESP 18; TEMP 36.8; O2SAT 94
[2025-06-15 20:32] VITALS: BP 125/73; PULSE 86
--- NOTE | 2025-06-15 23:31 | PC.RT ---
Placed pt onto nocturnal sleep study per order at 2330, RN is aware. Pt on Room Air in no distress at this time. RN will call if further interventions are needed.
[2025-06-16 03:35] VITALS: BP 132/71; PULSE 91; RESP 20; TEMP 36.5; O2SAT 93
--- NOTE | 2025-06-16 05:21 | PC.RT ---
RT ended sleep study at approximately 0512 this morning, 06/16/2025. Pt stated he kevin well with no issues. Pt remains on room air
[2025-06-16 07:27] VITALS: BP 133/76; PULSE 58; RESP 16; TEMP 36; O2SAT 97
[2025-06-16] MEDS: oxyCODONE HCl Immed Release 5 MG TABLET 10 MG PO ×2 (07:27→11:27)
[2025-06-16] MEDS: 0.9 % Sodium Chloride Flush 3 ML SYRINGE IVFLUSH (07:29)
[2025-06-16] MEDS: Mirabegron 50 MG TAB.ER.24H PO (08:17)
[2025-06-16] MEDS: Ferrous Sulfate 324 MG TABLET.DR PO (08:17)
[2025-06-16] MEDS: buPROPion HCl XL 300 MG TAB.ER.24H PO (08:18)
--- NOTE | 2025-06-16 10:20 | P.DS_ITS ---
DS: Providers Provider Date of Service: 06/16/25 Date of admission: 06/13/25 16:05 Date of discharge: 06/16/25 Primary care physician: Unknown Physician Consults: 06/12/25 17:08 ED CARE Team Crisis Consult Stat Comment: Reason for consultation: confusion, hallucinations 06/12/25 17:23 Consult to Psychiatry Stat Consulting Provider[place] [facility] Reason for consultation: visual hallucinations, confusion, no known history of dementia, from STR 06/13/25 16:05 Consult to Neurology Routine Consulting Provider: [facility] Reason for consultation: new hallucinations Has provider been notified: No 06/13/25 21:57 Consult to Wound Care Routine Reason for consultation: PI to left buttock and ulcer to rt foot 06/14/25 14:29 Consult to Psychiatry Routine Consulting Provider: [facility] Reason for consultation: seen by psych for hallucinations Has provider been notified: No 06/15/25 11:46 Consult to Pulmonology Routine Consulting Provider: [facility] Reason for consultation: sleep apnea Has provider been notified: No DS: Diagnosis Discharge Diagnosis (1) Hallucination: Status: Acute (2) LILI (obstructive sleep apnea): Status: Acute DS: Summary Hospital Course Hospital Course: from initial hpi: 79-year-old male with multiple medical issues who initially presented to the emergency department on June 11 from [facility] due to a witnessed fall, patient takes Eliquis which seems to be the reason that he was sent in for evaluation. At that time a brain CT showed no evidence of acute intracranial hemorrhage. On that day the ED documentation did note chronic intermittent hallucinations starting in May of 2025 which started after a fall. He was sent back in from [facility] the next day due to AMS and agitation. He had medical workup which was unrevealing and was therefore seen by psychiatry in the emergency department. The psychiatrist is unsure if his change in mental status is psychiatric related and felt that the patient should be admitted to the medical service for a neurology consultation. Per emergency department documentation patient has been in multiple rehab facilities and hospitals over the past few months. Patient was started on scheduled olanzapine with p.r.n. olanzapine as needed by the psychiatric team. When I evaluated him he was alert and oriented to person and place and had no visual or auditory hallucinations although he is somewhat vague regarding why he is here and his medical history. he will be admitted overnight for Neurology evaluation. Of note tox screen was positive for opiates and amphetamines, patient is on chronic opiates for chronic pain and was reportedly being given phentermine for weight loss. hospital course: Patient was admitted for concern for hallucinations which appeared to have completely resolved. Was seen by neurology recommended EEG which was negative. Was seen by Psychiatry who took patient off antipsychotics and did not have any recurrence of hallucinations. Could possibly related to LILI and noncompliance with BiPAP at night. Patient is strongly encouraged to continue BiPAP at night. For chronic atrial fibrillation was continue metoprolol and Eliquis. For mood disorder was continued Wellbutrin, Lexapro, olanzapine. For morbid obesity weight loss recommended. For hypertension remained on the lower side and lisinopril was held. For chronic pain was continued on oxycodone, Cymbalta, Lyrica. Patient is back to baseline and will be discharged home. He is not interested and snf facility. Time Attestation Discharge Coordination Time (in mins): 33 Quality: Safe Use of Opioids Does Pt have an Active Cancer Diagnosis on the Problem List?: No Quality: Stroke Does the patient have a stroke diagnosis?: No Physical Exam Exam: Exam: Appearance: awake ,alert ,near baseline. cvs: rrr, [id number] . res: clear to auscultation ,no rhonchii or wheezing abd: no rebound or guarding ,nt, bs present. ext pulses present , no cyanosis . neuro: axo3 , nonfocal. Vital Signs: Vital Signs: Last Vital Signs Temp 96.8 F 06/16/25 07:27 Pulse 58 06/16/25 07:27 Resp 16 06/16/25 07:27 BP 133/76 06/16/25 07:27 Pulse Ox 97 06/16/25 07:27 O2 Del Method Room Air 06/16/25 07:27 O2 Flow Rate 90 06/14/25 19:25 BMI result Body Mass Index 40.9 DS: Data Data Completed and Pending Labs on day of discharge: Preliminary micro results at discharge 06/12/25 13:34 Blood Culture - Preliminary Blood - Venous No growth after 48 hours. 06/12/25 13:34 Blood Culture - Preliminary Blood - Venous No growth after 48 hours. Discharge Plan Discharge Anticipated Discharge Date/Time: 06/16/25 10:17 Patient Disposition: Home Health Service Discharge Diagnosis: confusion Referrals: Physician,Unknown J [Primary Care Provider, Medical] - 1 Week Discharge Medications: Continued multivitamin Tablet 1 tab PO DAILY bupropion HCl 150 mg tablet sustained-release 12 hr 150 mg PO BID sennosides [senna] 8.6 mg Tablet 8.6 mg PO DAILY PRN (Reason: Constipation) phentermine 15 mg capsule 15 mg PO BID docusate sodium 50 mg Capsule 50 mg PO DAILY ascorbic acid (vitamin C) 250 mg Tablet 250 mg PO DAILY ferrous sulfate 325 mg (65 mg iron) Tablet 325 mg PO DAILY montelukast 10 mg tablet 10 mg PO BEDTIME oxycodone 5 mg tablet 10 mg PO Q4H PRN (Reason: Severe Pain (Scale Score 7-10)) escitalopram oxalate 20 mg tablet 20 mg PO DAILY escitalopram oxalate 20 mg Tablet 20 mg PO DAILY rosuvastatin 40 mg tablet 40 mg PO BEDTIME metoprolol tartrate 25 mg tablet 50 mg PO BID duloxetine 60 mg Capsule,Delayed Release(Dr/Ec) 60 mg PO DAILY pregabalin [Lyrica] 50 mg capsule 50 mg PO DAILY mirabegron [Myrbetriq] 50 mg tablet extended release 24 hr 50 mg PO QAM Eliquis 5 mg tablet 5 mg PO BID Discontinued lisinopril 5 mg tablet 20 mg PO DAILY Discharge Orders: Discharge Order (Routine); Ordered 06/16/25 Ordered By: Jase Lopez Diet: Advance to usual diet Activity on Discharge: As tolerated Stand Alone Forms: Patient Portal Discharge page Print Language: Azeri Care Plan Goals: recovery Health Concerns: lili Plan of Treatment: bipap at night, weight loss, avoid etoh Assessment: see above
--- NOTE | 2025-06-16 10:25 | W.MHC.F2F ---
Service Date Service Date: 06/16/25 Encounter Date of encounter: 06/16/25 Reasons for Services Signs and symptoms assessed: difficulty ambulating Reason for mcfp: medication management, medication treatment and teach disease management Reason for physical therapy: home safety and mobility and therapeutic exercises Reason for occupational therapy: home safety and mobility and therapeutic exercises Homebound: Leaving the home is medically contraindicated at this time without the asist of a device and/or another person due th the listed conditions above and below. Reason homebound: unsteady gait / fall risk and weakness related to hospital stay Certification: Based on the above findings, I certify that this patient is confined to the home and needs intermittent mcfp care, physical therapy and/or speech therapy, or continues to need occupational therapy. The patient is under my care, and I have initiated the establishment of the plan of care. The patient will be followed by a physician who will periodically review the plan of care. Time Spent With Patient Time: Total time managing care of this patient today ____ minutes.
--- NOTE | 2025-06-16 11:10 | MHC.CM.PN ---
DP: PT HAS BEEN MEDICALLY CLEARED FOR DC HOME WITH [facility] ([facility] CHO[facility]). [facility] UPDATED ON TODAY'S DC. WAS MADE AWARE THAT [facility] HAS PT'S BI PAP MACHINE THAT IS AWAITING HER P/U AT [employer]. RN UPDATED. BLS TRANSPORT BOOKED FOR 1 PM VIA [employer]. AWARE OF TRANSPORT TIME.
--- NOTE | 2025-06-16 12:31 | P.CONPL_ITS ---
History of Present Illness History of Present Illness Consult date: 06/16/25 Chief complaint: ?DEANNA Narrative: 79-year-old gentleman with underlying obesity, DEANNA ohs, recent admission to [facility] CO2 retention discharged on BiPAP at night, admitted to [facility] on June 13 of alteration of mental status with pulmonary evaluation requested for concerns of underlying obstructive sleep apnea and chronic CO2 retention. Review of Systems 2 Review of Systems: Yes Unobtainable due to mental status (Confused) Neurologic: Reports confusion Psychiatric: Psychiatric: Reports confusion [facility] Past Medical History Medical History Anxiety Atrial fibrillation Social History Social History Household Members: Spouse and Significant Other Housing: House Do you presently have visiting nurse or other home services: No Patient Tobacco Use Status: Former Tobacco user service: No Meds Allergies Allergy/AdvReac Type Severity Reaction Status Date / Time morphine (MORPHINE) Allergy Intermediate VOMITING Verified 06/12/25 13:12 Active Medications: Current Medications Acetaminophen (Acetaminophen 325 Mg Tablet) 650 mg PO Q6H PRN PRN Reason: Pain, Mild 1-3,fever,headache Last Admin: 06/15/25 10:23 Dose: 650 mg Apixaban (Apixaban 5 Mg Tablet) 5 mg PO BID [facility] Last Admin: 06/16/25 08:18 Dose: 5 mg Ascorbic Acid (Ascorbic Acid 250 Mg Tablet) 250 mg PO DAILY [facility] Last Admin: 06/16/25 08:18 Dose: 250 mg Atorvastatin Calcium (Atorvastatin Calcium 80 Mg Tablet) 80 mg PO BEDTIME [facility] Last Admin: 06/15/25 20:32 Dose: 80 mg Bupropion HCl (Bupropion Hcl Xl 300 Mg Tab.Er.24h) 300 mg PO DAILY [facility] Last Admin: 06/16/25 08:18 Dose: 300 mg Calcium Carbonate (Calcium Carbonate 750 Mg Tab.Chew) 750 mg PO Q4H PRN PRN Reason: Heartburn Docusate Sodium (Docusate Sodium 100 Mg/10 Ml Liquid) 50 mg PO DAILY [facility] Last Admin: 06/16/25 08:16 Dose: 50 mg Duloxetine HCl (Duloxetine Hcl 60 Mg Capsule.Dr) 60 mg PO DAILY [facility] Last Admin: 06/16/25 08:18 Dose: 60 mg Escitalopram Oxalate (Escitalopram Oxalate 20 Mg Tablet) 20 mg PO DAILY [facility] Last Admin: 06/16/25 08:17 Dose: 20 mg Ferrous Sulfate (Ferrous Sulfate 324 Mg Tablet.Dr) 324 mg PO DAILY [facility] Last Admin: 06/16/25 08:17 Dose: 324 mg Lisinopril (Lisinopril 20 Mg Tablet) 20 mg PO DAILY [facility]; Protocol On Hold: 06/14/25 17:41 Last Admin: 06/14/25 08:43 Dose: 20 mg Magnesium Hydroxide (Milk Of Magnesia 30 Ml Oral.Susp) 30 ml PO DAILY PRN PRN Reason: Constipation Melatonin (Melatonin 3 Mg Tablet) 6 mg PO BEDTIME PRN PRN Reason: Insomnia Metoprolol Tartrate (Metoprolol Tartrate 50 Mg Tablet) 50 mg PO BID [facility]; Protocol Last Admin: 06/16/25 08:17 Dose: 50 mg Mirabegron (Mirabegron 50 Mg Tab.Er.24h) 50 mg PO DAILY [facility] Last Admin: 06/16/25 08:17 Dose: 50 mg Montelukast Sodium (Montelukast Sodium 10 Mg Tablet) 10 mg PO BEDTIME [facility] Last Admin: 06/15/25 20:32 Dose: 10 mg Multivitamins/Vitamin C (Multivitamin Tablet) 1 tab PO DAILY [facility] Last Admin: 06/16/25 08:17 Dose: 1 tab Oxycodone HCl (Oxycodone Hcl Immed Release 5 Mg Tablet) 10 mg PO Q4H PRN PRN Reason: Severe Pain (Scale Score 7-10) Last Admin: 06/16/25 11:27 Dose: 10 mg Pregabalin (Pregabalin 50 Mg Capsule) 50 mg PO DAILY [facility] Last Admin: 06/16/25 08:17 Dose: 50 mg Senna (Sennosides 8.6 Mg Tablet) 8.6 mg PO DAILY PRN PRN Reason: Constipation Sodium Chloride (0.9 % Sodium Chloride Flush 3 Ml Syringe) 3 ml IVFLUSH QSHIFT [facility] Last Admin: 06/16/25 07:29 Dose: 3 ml Home Medications ?Medication ?Instructions ?Recorded ?Confirmed ?Last Taken ?Type apixaban 5 mg tablet (Eliquis) 5 mg PO BID 06/12/25 Unknown History ascorbic acid (vitamin C) 250 mg 250 mg PO DAILY 06/1206/12/25 Unknown History tablet bupropion HCl 150 mg tablet,12 hr 150 mg PO BID 06/12/25 Unknown History sustained-release docusate sodium 50 mg capsule 50 mg PO DAILY 06/12/25 06/12/25 Unknown History duloxetine 60 mg capsule,delayed 60 mg PO DAILY 06/12/25 Unknown History release escitalopram oxalate 20 mg tablet 20 mg PO DAILY 06/1206/12/25 Unknown History escitalopram oxalate 20 mg tablet 20 mg PO DAILY 06/1206/12/25 Unknown History ferrous sulfate 325 mg (65 mg 325 mg PO DAILY 06/12/25 06/12/25 Unknown History iron) tablet metoprolol tartrate 25 mg tablet 50 mg PO BID 06/12/25 06/12/25 Unknown History mirabegron 50 mg tablet,extended 50 mg PO QAM 06/12/25 06/12/25 Unknown History release 24 hr (Myrbetriq) montelukast 10 mg tablet 10 mg PO BEDTIME 06/12/25 Unknown History multivitamin 1 tab PO DAILY 06/12/2505/22 Unknown History oxycodone 5 mg tablet 10 mg PO Q4H PRN Severe Pain 06/12/25 06/12/25 Unknown History (Scale Score 7-10) phentermine 15 mg capsule 15 mg PO BID 06/12/25 Unknown History pregabalin 50 mg capsule (Lyrica) 50 mg PO DAILY 06/1206/12/25 Unknown History rosuvastatin 40 mg tablet 40 mg PO BEDTIME 06/12/25 Unknown History sennosides 8.6 mg tablet (senna) 8.6 mg PO DAILY PRN C onstipation 06/12/25 06/12/25 Unknown History Physical Exam 2 Vital Signs: Vital Signs: Last Vital Signs Temp 96.8 F 06/16/25 07:27 Pulse 58 06/16/25 07:27 Resp 16 06/16/25 07:27 BP 133/76 06/16/25 07:27 Pulse Ox 97 06/16/25 07:27 O2 Del Method Room Air 06/16/25 07:27 O2 Flow Rate 90 06/14/25 19:25 BMI result Body Mass Index 40.9 Const: General: no acute distress, alert, awake and confusion Nutritional Appearance: obese Orientation/consciousness: confusion Eyes: Sclerae: sclerae normal EOM: EOMs intact bilaterally Neck: Neck: Yes no lymphadenopathy, Yes trachea midline and Yes supple Resp: Effort & Inspection: normal respiratory effort and no respiratory distress Auscultation: clear to auscultation bilaterally Cardio: Rate: regular rate Rhythm: regular rhythm Heart sounds: no gallops, no murmurs and no rubs GI: Palpation (GI): Soft to palpation and Other GI palpation findings present ( Nontender) Auscultation: normal bowel sounds Neuro: General: confusion Extrem: General: Yes no pedal edema, No clubbing and No cyanosis Results Laboratory Findings 06/12/25 13:34 06/12/25 13:34 Abnormal lab findings: Abnormal Labs 06/12/25 06/12/25 06/13/25 13:34 16:44 17:53 Hgb 13.2 L Hct 40.4 L RDW 22.1 H MPV 8.7 L Lymph % (Auto) 15.5 L VBG pH 7.49 H Lactic Acid 2.7 H* Total Protein 6.4 L Ur Specific [place] >= 1.030 H Ur Leukocyte Esterase Trace H Urine Opiates Screen POSITIVE H Ur Oxycodone Screen Positive H Ur Amphetamines Screen POSITIVE H Microbiology: Microbiology 06/12/25 13:34 Blood - Venous Blood Culture - Preliminary No growth after 48 hours. 06/12/25 13:34 Blood - Venous Blood Culture - Preliminary No growth after 48 hours. Assessment and Plan (1) Morbid obesity: Status: Acute (2) DEANNA (obstructive sleep apnea): Status: Acute (3) CO2 retention: Status: Acute (4) Obesity hypoventilation syndrome: Status: Acute Plan Impression: 79-year-old gentleman with underlying obesity, CO2 retention, obesity hypoventilation with recent admission to outside hospital for CO2 retention admitted with alteration of mental status with what appears to be essentially negative workup. Recommendation: From pulmonary perspective patient will require continuation of nocturnal BiPAP to prevent CO2 narcosis. Procedures Date of Service Date of Service: 06/16/25
[2025-06-16 13:02] VITALS: BP 130/81; PULSE 89; RESP 20; TEMP 36; O2SAT 96
== END 2025-06-16 13:11 | disposition home health service (06) ==
LOC: HO.ED 06-13 14:39 → HO.EDOVER 06-13 16:12 → HO.S3 06-13 19:33
PROVIDERS: Internal Medicine; Nurse Practitioner Family; Admitting Provider Physician Assistant Medical; Emergency Provider Emergency Medicine; Visit Provider Internal Medicine
DX: R41.0 Disorientation, unspecified (principal); E66.2 Morbid (severe) obesity with alveolar hypoventilation; E87.29 Other acidosis; R45.1 Restlessness and agitation; R53.1 Weakness; G93.40 Encephalopathy, unspecified; I48.91 Unspecified atrial fibrillation; J44.9 Chronic obstructive pulmonary disease, unspecified; I10 Essential (primary) hypertension; K21.9 Gastro-esophageal reflux disease without esophagitis; F39 Unspecified mood [affective] disorder; G89.29 Other chronic pain; R26.81 Unsteadiness on feet; Z68.41 Body mass index [BMI] 40.0-44.9, adult; Z79.01 Long term (current) use of anticoagulants; Z99.89 Dependence on other enabling machines and devices; Z79.899 Other long term (current) drug therapy; Z03.818 Encounter for observation for suspected exposure to other biological agents ruled out
CPT/HCPCS: 36415; 71045; 80048; 80076; 80307; 81001; 81003; 82140; 82803; 83605; 83735; 84443; 85025; 87040; 87637; 93005; 95806; 95816; 96360; 99221; 99285; S9485

== ENCOUNTER → 2025-06-12 13:11 | Outpatient (BNV) | payer MEDICARE, SELFPAY | PROVIDERS: Emergency Provider Emergency Medicine; Visit Provider Internal Medicine | DX: I48.91 Unspecified atrial fibrillation (principal) | CPT/HCPCS: 93010 ==

== ENCOUNTER → 2025-06-12 13:48 | Outpatient (BNV) | payer MEDICARE, SELFPAY | PROVIDERS: Emergency Provider Emergency Medicine; Visit Provider Psychiatry & Neurology Psychiatry | DX: R41.0 Disorientation, unspecified (principal) | CPT/HCPCS: 99284 ==

== ENCOUNTER 2025-06-13 16:05 | Outpatient (BNV) | payer MEDICARE, SELFPAY | END 2025-06-14 15:00 | PROVIDERS: Admitting Provider Physician Assistant Medical; Emergency Provider Emergency Medicine; Visit Provider Psychiatry & Neurology Neurology | DX: G93.40 Encephalopathy, unspecified (principal) | CPT/HCPCS: 95816 ==

== ENCOUNTER → 2025-06-13 16:05 | Outpatient (BNV) | payer MEDICARE, SELFPAY | PROVIDERS: Admitting Provider Physician Assistant Medical; Emergency Provider Emergency Medicine; Visit Provider Internal Medicine Pulmonary Disease | DX: E66.2 Morbid (severe) obesity with alveolar hypoventilation (principal); E66.01 Morbid (severe) obesity due to excess calories; G47.33 Obstructive sleep apnea (adult) (pediatric); E87.29 Other acidosis | CPT/HCPCS: 99222 ==

== ENCOUNTER → 2025-06-13 16:05 | Outpatient (BNV) | payer MEDICARE, SELFPAY | PROVIDERS: Admitting Provider Physician Assistant Medical; Emergency Provider Emergency Medicine; Visit Provider Physician Assistant Medical | DX: G47.33 Obstructive sleep apnea (adult) (pediatric) (principal); R41.0 Disorientation, unspecified | CPT/HCPCS: 99223; 99231 ==

== ENCOUNTER → 2025-06-13 16:05 | Outpatient (BNV) | payer MEDICARE, SELFPAY | PROVIDERS: Admitting Provider Physician Assistant Medical; Emergency Provider Emergency Medicine; Visit Provider Psychiatry & Neurology Neurology | DX: R41.0 Disorientation, unspecified (principal) | CPT/HCPCS: 99222 ==

== ENCOUNTER 2025-09-24 14:13 | Outpatient (REF) | payer MEDICARE, SELFPAY ==
[2025-09-24 14:22] LABS: MANUAL DIFF FLAG NO
[2025-09-24 14:29] LABS: Hematocrit 45.6 % (42.0-52.0); Hemoglobin 14.1 g/dl (14.0-18.0); Imm Gran Abs Auto 0.03 X10*3/uL (0.00-0.03); Imm Gran Pct Auto 0.3 % (0.0-0.4); Lymphocytes Absolute Auto 1.1 X10*3/uL (1.2-4.9); Mean Corpuscular HGB Conc 30.9 g/dl (31.0-36.0); Mean Corpuscular Hemoglobin 28.8 pg (27.0-33.0); Mean Corpuscular Volume 93.3 fL (80.0-98.0); NRBC Abs Auto 0.000 X10*3/uL (0.0-0.012); NRBC Pct Auto 0.0 /100WBC (0.0-0.2); Platelet Count 211 X10*3/uL (160-400); Red Blood Count 4.89 X10*6/uL (4.60-5.80); White Blood Count 10.5 X10*3/uL (4.8-10.8)
[2025-09-24 17:18] LABS: Alanine Aminotransferase 13 U/L (0-40); Albumin Level 3.8 g/dL (3.5-5.0); Alkaline Phosphatase 78 U/L (39-117); Anion Gap 12 (12-20); Aspartate Amino Transferase 21 U/L (5-37); Blood Urea Nitrogen 10 mg/dL (9-16); Calcium 9.6 mg/dL (8.4-10.2); Carbon Dioxide 38 mmol/L (22-29); Chloride 94 mmol/L (96-108); Estimated Glomerular Filt Rate > 60; Magnesium 2.0 mg/dL (1.6-2.6); Potassium 4.7 mmol/L (3.3-5.1); Sodium 139 mmol/L (135-145); Total Protein 6.4 g/dL (6.5-8.0)
--- OUTSIDE RECORDS SUMMARY | 2025-09-24 18:26 | XMS_ITS | Clinical Summary ---
Author Organization [employer] Address [address] [facility] 7t [place] [address] Care Team Providers Care After School Tutor Name Role Phone Belkis Francis MD Primary Care Provider [phone] Allergies No known active allergies Medications Docusate Sodium (DSS) 100 MG capsule 1 capsule in the morning. Active Multiple Vitamins-Minera ls (One Daily For Men 50+ Advanced) tablet 1 tablet in the morning. Active silver sulfADIAZINE (Silvadene) 1 % creamIndication s:Chronic ulcer of toe, unspecified laterality, unspecified ulcer stage (HCC) Apply topically Once per day. 50 g 2 05/15/20 24 Active Suzetrigine 50 MG tabletIndicatio ns:Idiopathic progressive neuropathy Take 50 mg by mouth 2 times daily. 60 tablet 2 01/08/20 25 Active tamsulosin (Flomax) 0.4 MG 24 hr capsuleIndicati ons:Essential (primary) hypertension TAKE 2 CAPSULES BY MOUTH EVERY DAY 180 capsule 1 02/09/20 25 Active nystatin (Mycostatin) 672067 UNIT/GM powder APPLY TO AFFECTED AREA TWICE A DAY 60 g 3 05/20/20 25 Active omeprazole (PriLOSEC) [address] capsuleIndicati ons:Gastro-esop hageal reflux disease without esophagitis TAKE 1 CAPSULE BY MOUTH EVERY DAY 30 MINUTES BEFORE MORNING MEAL FOR 30 DAYS 90 capsule 1 07/15/20 25 Active montelukast (Singulair) 10 MG tabletIndicatio ns:COPD mixed type (CMS/HCC) (HCC) TAKE 1 TABLET BY MOUTH EVERY DAY IN THE EVENING 90 tablet 1 07/15/20 25 Active buPROPion SR (Wellbutrin SR) 150 MG 12 hr tabletIndicatio ns:Mild episode of recurrent major depressive disorder (CMS/HCC) Take 1 tablet (150 mg) by mouth 2 times daily. 180 tablet 3 07/22/20 Active Multiple Vitamins-Minera ls (PreserVision AREDS) tablet Take 1 tablet by mouth Once per day. 90 tablet 3 07/22/20 Active DULoxetine (Cymbalta) [address] capsuleIndicati ons:Moderate episode of recurrent major depressive disorder (CMS/HCC) (HCC) Take 1 capsule (60 mg) by mouth Once per day. 90 capsule 3 07/22/20 25 Active apixaban (Eliquis) 5 MG tabletIndicatio ns:Paroxysmal atrial fibrillation (CMS/HCC) (HCC) Take 1 tablet (5 mg) by mouth 2 times daily. TAKE 1 TABLET BY MOUTH TWICE A DAY 180 tablet 3 07/22/20 25 Active sennosides (Senokot) 8.6 MG tablet Take 1 tablet (8.6 mg) by mouth Once per day. 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 90 tablet 3 07/22/20 25 Active albuterol 108 (90 Base) MCG/ACT inhalerIndicati ons:Acute cough Inhale 2 puffs every 4 (four) hours if needed for wheezing. 18 g 2 07/27/20 Active metoprolol tartrate (Lopressor) 50 MG tabletIndicatio ns:Essential hypertension Take 1 tablet (50 mg) by mouth 2 times daily. Take with food. 180 tablet 3 07/27/20 25 Active furosemide (Lasix) 20 MG tabletIndicatio ns:Edema of lower extremity Take 1 tablet (20 mg) by mouth if needed each day (swelling, weight gain). as needed if noted to have swelling in legs again or >3lbs weight gain in 24 hours 90 tablet 1 08/03/20 25 Active phentermine 15 MG capsuleIndicati ons:Body mass index (BMI) 40.0-44.9, adult ([facility]) TAKE 1 CAPSULE BY MOUTH TWICE A DAY- NOT COVERED BY INSURANCE - PLEASE APPLY GOOD RX DISCOUNT 60 capsule 2 09/02/20 25 Active fluticasone furoate (Arnuity Ellipta) 100 MCG/ACT inhaler 3 each 3 09/02/20 25 Active Vibegron (Gemtesa) 75 MG tabletIndicatio ns:Overactive bladder Take 1 tablet (75 mg) by mouth Once per day. 90 tablet 3 09/07/20 25 026 Active pregabalin (Lyrica) 50 MG capsuleIndicati ons:Idiopathic progressive neuropathy Take 1 capsule (50 mg) by mouth Once per day. 90 capsule 3 09/13/20 25 Active ipratropium-alb uterol (Duo-Neb) 0.5-2.5 mg/3 mL nebulizer solutionIndicat ions:COPD mixed type (CMS/HCC) (HCC) USE 3ML NEEDED EVERY 6 HOURS FOR 7 DAYS 180 mL 1 09/13/20 25 Active morphine CR (MS Contin) 15 MG 12 hr tabletIndicatio ns:Chronic pain syndrome Take 1 tablet (15 mg) by mouth at bedtime. Do not crush, chew, or split. 30 tablet 09/21/20 25 026 Active oxyCODONE (Roxicodone) 5 MG immediate release tabletIndicatio ns:Chronic pain disorder Take 1 tablet (5 mg) by mouth every 4 (four) hours. 180 tablet 09/21/20 25 026 Active ipratropium-alb uterol (Duo-Neb) 0.5-2.5 mg/3 mL nebulizer solution USE 3ML NEEDED EVERY 6 HOURS FOR 7 DAYS 180 mL 1 07/19/20 23 025 Discontinued(Re order (will not trigger notification to Pharmacy)) fluticasone furoate (Arnuity Ellipta) 100 MCG/ACT inhaler 3 each 3 02/07/20 24 025 Discontinued(Re order (will not trigger notification to Pharmacy)) mirabegron ER (Myrbetriq) 50 MG 24 hr tabletIndicatio ns:Other specified urinary incontinence Take 1 tablet (50 mg) by mouth Once per day. Do not crush, chew, or split. 90 tablet 3 07/19/20 25 025 Discontinued(Co st of medication) pregabalin (Lyrica) 50 MG capsuleIndicati ons:Idiopathic progressive neuropathy Take 1 capsule (50 mg) by mouth 3 times daily. 90 capsule 3 07/22/20 25 025 Discontinued(Do se adjustment) phentermine 15 MG capsuleIndicati ons:Body mass index (BMI) 40.0-44.9, adult ([facility]) TAKE 1 CAPSULE BY MOUTH TWICE A DAY- NOT COVERED BY INSURANCE - PLEASE APPLY GOOD RX DISCOUNT 60 capsule 07/22/20 25 025 Discontinued(Re order (will not trigger notification to Pharmacy)) benzonatate (Tessalon) 100 MG capsuleIndicati ons:Acute cough Take 1 capsule (100 mg) by mouth if needed in the morning, at noon, and at bedtime for cough. Do not crush or chew. 42 capsule 08/09/20 25 025 morphine CR (MS Contin) 15 MG 12 hr tabletIndicatio ns:Chronic pain syndrome Take 1 tablet (15 mg) by mouth at bedtime. Do not crush, chew, or split. 30 tablet 08/24/20 25 025 Discontinued(Re order (will not trigger notification to Pharmacy)) oxyCODONE (Roxicodone) 5 MG immediate release tabletIndicatio ns:Chronic pain disorder Take 1 tablet (5 mg) by mouth every 4 (four) hours. 180 tablet 08/24/20 25 025 Discontinued(Re order (will not trigger notification to Pharmacy)) Active Problems Problem Noted Date Diagnosed Date Obesity hypoventilation syndrome ([facility]) 05/22 Body mass index (BMI) 45.0-49.9, adult Edema of lower extremity 04/30/2025 Insomnia 04/30/2025 Ankle arthritis 12/20/2022 Atrial fibrillation ([facility]) 12/20/2022 Benign prostatic hyperplasia with lower urinary tract symptoms 12/20/2022 Chronic GERD 12/20/2022 Chronic pain syndrome 12/20/2022 COPD mixed type ([facility]) 12/20/2022 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 12/20/2022 Osteoarthritis, localized, knee 12/20/2022 Essential hypertension 12/20/2022 Other specified urinary incontinence 12/20/2022 Recurrent major depressive disorder 12/20/2022 Sleep apnea in adult 12/20/2022 Encounters Date Type Department Care Team Description 09/20/[address] [address] Belkis Francis MD Chronic pain syndrome; Chronic pain disorder 09/15/[address] [address] Belkis Francis MD VNA; Verbal Orders; Medication Question 09/13/2025 12:20 PM EST Telemedicine [address] [address] Belkis Francis MD COPD mixed type ([facility]) ([facility]) (Primary Dx); Idiopathic progressive neuropathy; Overactive bladder; Loud snoring; Chronic pain syndrome; Essential hypertension; BMI 40.0-44.9, adult ([facility]) ([facility]); Osteoarthritis, localized, knee 09/13/[address] [address] Jeanna Chiang Prior Authorization (duoneb) 08/31/[address] [address] Belkis Francis MD 08/31/[address] [address] Belkis Francis MD Body mass index (BMI) 40.0-44.9, adult ([facility]) 08/31/[address] [address] Belkis Francis MD VNA 08/24/[address] [address] Belkis Francis MD Chronic pain syndrome; Chronic pain disorder 08/12/[address] [address] Belkis Francis MD Home visit from the nurse with concerns 08/08/[address] [address] Belkis Francis MD Acute cough 08/05/[address] [address] Belkis Francis MD VNA 08/01/[address] [address] Teodora Cox CNP Edema of lower extremity (Primary Dx) 07/27/2025 10:30 AM EDT Telemedicine [address] [address] Belkis Francis MD Loud snoring (Primary Dx); Major depressive disorder, recurrent, unspecified; Essential hypertension; Chronic pain syndrome; Chronic fatigue; Acute cough 07/22/[address] [address] Belkis Francis MD Major depressive disorder, recurrent, unspecified 07/19/2025 11:40 AM EDT Telemedicine [address] [address] Belkis Francis MD Hospital discharge follow-up (Primary Dx); Somnolence 07/19/[address] [address] Belkis Francis MD Other specified urinary incontinence; Body mass index (BMI) 40.0-44.9, adult ([facility]); Chronic pain syndrome 07/15/[address] [address] Belkis Francis MD Gastro-esophageal reflux disease without esophagitis; COPD mixed type (CMS/HCC) 07/09/[address] [address] Belkis Francis MD substitute for RX 07/08/[address] [address] Belkis Francis MD Chronic pain syndrome; Chronic pain disorder; Essential hypertension; Mild episode of recurrent major depressive disorder (CMS/HCC); Moderate episode of recurrent major depressive disorder ([facility]/HCC); Paroxysmal atrial fibrillation ([facility]/HCC); Body mass index (BMI) 40.0-44.9, adult ([facility]/HCC); Idiopathic progressive neuropathy; Major depressive disorder, recurrent, unspecified ([facility]/HCC); 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 ([facility]/HCC) 07/07/2025 Orders Only [facility] Information Management [address] [place] [address] Belkis Francis MD 07/07/[address] [address] Belkis Francis MD hospital discharge, obtain hospital records 07/05/[address] [address] Belkis Francis MD ADDITIONAL INFORMATION FOR THE MEDICAL NECESSITY FOR A HOSP 06/30/2025 Refill [facility] [address] [place] [address] Belkis Francis MD 06/29/[address] [address] Belkis Francis MD FAX FOR HOSPITAL BED from Last 3 Months Immunizations Immunization Administration Dates Next Due Influenza, High Dose Seasona l, Preservative Free 08/31/2022,07/18/2019 Influenza, IIV3, injectable 07/14/2018,1 ,06/28/2016,08/05 Pneumococcal Conjugate PCV 13 07/21/2014 Pneumococcal Polysaccharide PPSV23 06/01/2019,,11/30/2012 Tdap 06/01/2019 Family History Medical History Relation Name Comments Ovarian cancer Mother Thyroid disease Sister 1 Diabetes Sister 2 Relation Name Status Comments Father Mother Sister 1 Sister 2 Alive Social History Tobacco Use Types Packs/Day Years Used Date Smoking Tobacco: Former Cigarettes Smokeless Tobacco: Never Tobacco Cessation:Counseling Given: Not Answered Alcohol Use Standard Drinks/Week Comments Not Currently 0 (1 standard drink = 0.6 oz pur e alcohol) Sex and Gender Information Value Date Recorded Sex Assigned at Male 01/22/2023 11:47 AM EDT Legal Sex Male 8:38 PM EDT Gender Identity Male 01/22/2023 11:47 AM EDT Sexual Orientation Straight 01/22/2023 11 :47 AM EDT Last Filed Vital Signs Vital Sign Reading Time Taken Comments Blood Pressure 126/84 05/15/2024 9:13 AM EDT Pulse 101 05/15/2024 9:13 AM EDT Temperature 36.2 C (97.2 F) 05/15/2024 9:13 AM EDT Respiratory Rate 16 05/15/2024 9:13 AM EDT Oxygen Saturation 97% 05/15/2024 9:13 AM EDT Inhaled Oxygen Concentration - - Weight 151 kg (332 lb) 05/15/2024 9:13 AM EDT Height 186.7 cm (6' 1.5 ) 05/15/2024 9:13 AM EDT Body Mass Index 43.21 05/15/2024 9:13 AM EDT Plan of Treatment Health Maintenance Due Date Last Done Comments Depression Screening 1945 SDOH Screening 1945 Alcohol/Substance Use Screening 1959 Hepatitis C Screening 1965 Zoster Vaccines (1 of 2) 1997 RSV Patients and Patients Aged 60 years or older (1 - 1-dose 75+ series) 2022 Tobacco Screening 05/15/2025 05/15/2024 COVID-19 Vaccine ( season) 2025 07/15/2023, 08/31/2022, 09/07/2021, Additional history exists Influenza Vaccine (#1) 2025 , 08/31/2022, 07/18/2019, Additional history exists Lipid Panel 10/18/2028 10/18/2023, 06/2 10/2021, 04/10/2022, Additional history exists DTaP/Tdap/Td Vaccines (2 - Td or Tdap) 06/01/2029 06/01/2019 Pneumococcal Vaccine: 50+ Years Completed 06/01/2019, 06/21/2015, 07/21/2014, Additional history exists Colorectal Cancer Screening Discontinued FIT Discontinued 05/20/2025 CT Colonography Discontinued Colonoscopy Discontinued FIT DNA/Cologuard Discontinued FOBT Discontinued HIB Vaccines Aged Out No longer eligi ble based on patient's age to complete this topic HPV Vaccines Aged Out No longer eligi ble based on patient's age to complete this topic Hepatitis A Vaccines Aged Out No long er eligible based on patient's age to complete this topic Hepatitis B Vaccines Aged Out No long er eligible based on patient's age to complete this topic IPV Vaccines Aged Out No longer eligi ble based on patient's age to complete this topic Meningococcal B Vaccine Aged Out No l onger eligible based on patient's age to complete this topic Meningococcal Vaccine Aged Out No olivia nicolas eligible based on patient's age to complete this topic RSV under 20 months Aged Out No longe r eligible based on patient's age to complete this topic Rotavirus Vaccines Aged Out No longer eligible based on patient's age to complete this topic Sigmoidoscopy Discontinued Procedures Procedure Name Priority Date/Time Associated Diagnosis Comments XR CHEST 2 VIEWS Routine 07/05/2025 9:33 AM EDT MRI BRAIN W WO CONTRAST Routine 07/03/2025 9:33 AM EDT TRANSTHORACIC ECHO (TTE) COMPLETE Routine 07/02/2025 9:32 AM EDT XR FOOT 3+ VIEWS RIGHT Routine 07/02/2025 9:32 AM EDT XR ANKLE 3 OR MORE VIEWS RIGHT Routine 07/02/2025 9:31 AM EDT CBC WITH AUTO DIFFERENTIAL Routine 07/01/2025 9:35 AM EDT XR CHEST PORTABLE Routine 07/01/2025 9:[address] CERVICAL SPINE WO CONTRAST Routine 07/01/2025 9:[address] HEAD WO CONTRAST Routine 07/01/2025 9 :29 AM EDT ECG 12-LEAD Routine 07/01/2025 9:29 AM EDT LIPID PANEL, STANDARD Routine 10/18/2023 12:21 PM EST Essential hypertension from Last 3 Months or Most Recently Relevant to Health Maintenance Results * XR Chest 2 Views (07/05/2025 9:33 AM EDT) Anatomical Region Laterality Modality Chest Radiographic Mary Alice ging us Belkis Francis MD IMG XR PROCEDURES Final Result * MRI BRAIN W WO CONTRAST (07/03/2025 9:33 AM EDT) Anatomical Region Laterality Modality Magnetic Resonan ce us Belkis Francis MD IMG MRI PROCEDURES Final Result * Transthoracic echo (TTE) complete (07/02/2025 9:32 AM EDT) Result Otoniel Francis MD CV ECHO PROCEDURES Final Result * XR Foot 3+ Views Right (07/02/2025 9:32 AM EDT) Anatomical Region Laterality Modality Lower Extremities, Foot Right Radiogra phic Imaging Result Otoniel Francis MD IMG XR PROCEDURES Final Result * XR ANKLE 3 OR MORE VIEWS RIGHT (07/02/2025 9:31 AM EDT) Anatomical Region Laterality Modality Radiographic Mary Alice ging Result Otoniel Francis MD IMG XR PROCEDURES Final Result * CBC auto differential (07/01/2025 9:35 AM EDT) Blood Venous blood specimen / Unknown Result Otoniel Francis MD LAB BLOOD ORDERABLES Final Resul t * XR Chest Portable (07/01/2025 9:31 AM EDT) Anatomical Region Laterality Modality Radiographic Mary Alice ging Result Otoniel Francis MD IMG XR PROCEDURES Final Result * CT Cervical Spine w/o Contrast (07/01/2025 9:30 AM EDT) Anatomical Region Laterality Modality Spine, C-spine Computed Tomogra phy Result Otoniel Francis MD IMG CT PROCEDURES Final Result * CT HEAD WO CONTRAST (07/01/2025 9:29 AM EDT) Anatomical Region Laterality Modality Computed Tomogra phy Result Otoniel Francis MD IMG CT PROCEDURES Final Result * ECG 12 lead (07/01/2025 9:29 AM EDT) us Beklis Francis MD ECG ORDERABLES Final Result * Lipid panel (10/18/2023 12:21 PM EST) Cholesterol, Total 108 (<200) MG/DL [facility] Triglyceride (mg/dL) in Serum/Plasma 132 (<150) MG/DL [facility] HDL Cholesterol 44 (>39) MG/DL [facility] LDL Cholesterol, Calculated 38 (0-130) MG/DL [facility] Non HDL Chol. (LDL+VLDL) 64 (<160) MG/DL [facility] Comment: Testing performed or reported by [facility], a Service of [facility], [address] [place] [address] Chet Vazquez MD, Link Trainer [facility]# [id number] Blood Venous blood specimen / Unknown 10/18/2023 12:21 PM EST 10/18/2023 12:23 PM EST Belkis Francis MD LAB BLOOD ORDERABLES Final Resul t [facility] [address] [address] from Last 3 Months or Most Recently Relevant to Health Maintenance Insurance MEDICARE Member Subscriber Plan / Payer (Ef fective 2023-Present) Name:Lennox Braxton Member ID:[id number] Relation to Subscriber:Self Name:Lennox Braxton Subscriber ID:[id number] Payer ID:[id number] Group ID:Not on file Type:Medicare Address: [facility] [address] [place] [address] [employer] Care Teams After School Tutor Relationship Specialty Start Date End Date Belkis Francis MD [address] [place] [id number] PCP - General Internal Medicine 10/26/22
--- OUTSIDE RECORDS SUMMARY | 2025-09-24 18:26 | XMS_ITS | Encounter Summary ---
Author Organization [employer] Address [address] [facility] [address] [place] [address] Care Team Providers Care Station Baggage Agent Name Role Phone Belkis Francis MD Primary Care Provider [phone] Reason for Visit * Reason Comments Med Refill Encounter Details Date Type Department Care Team (Late st Contact Info) Description 09/02/2024 Refill [facility] MEDICAL [address] [place] [address] Belkis Francis MD [address] [place] [address] Body mass index (BMI) 40.0-44.9, adult (CMS/HCC) [...] Diagnosis Body mass index (BMI) 40.0-44.9, adult (HCC) documented in this encounter Care Teams Station Baggage Agent Relationship Specialty Start Date End Date Belkis Francis MD [address] [place] [address] PCP - General Internal Medicine 10/26/22 documented as of this encounter
--- OUTSIDE RECORDS SUMMARY | 2025-09-24 18:26 | XMS_ITS | Encounter Summary ---
Author Organization [employer] Address [address] [facility] [address] [place] [address] Care Team Providers Care Head Packager Name Role Phone Belkis Francis MD Primary Care Provider [phone] Encounter Details Date Type Department Care Team (Late st Contact Info) Description 04/27/2025 Orders Only [facility] [place] [address] [place] [address] Belkis Francis MD [address] [place] [address] Social History Tobacco Use Types Packs/Day Years [...] on file documented as of this encounter Procedures Procedure Name Priority Date/Time Associated Diagnosis Comments TRANSTHORACIC ECHO (TTE) COMPLETE Routine 04/27/2025 9:32 AM EDT ECG 12-LEAD Routine 04/24/2025 9:[address] ABDOMEN PELVIS W CONTRAST Routine 04/24/2025 9:31 AM EDT documented in this encounter Results * Transthoracic echo (TTE) complete (04/27/2025 9:32 AM EDT) us Belkis Francis MD CV ECHO PROCEDURES Final Result * ECG 12 lead (04/24/2025 9:32 AM EDT) Belkis Francis MD ECG ORDERABLES Final Result * CT Abdomen Pelvis w/ Contrast (04/24/2025 9:31 AM EDT) Anatomical Region Laterality Modality Body, Pelvis, Abdomen Computed T omography Belkis Francis MD IMG CT PROCEDURES Final Result documented in this encounter Visit Diagnoses Not on filedocumented in this encounter Care Teams Head Packager Relationship Specialty Start Date End Date Belkis Francis MD [address] [place] [id number] PCP - General Internal Medicine 10/26/22 documented as of this encounter
--- OUTSIDE RECORDS SUMMARY | 2025-09-24 18:26 | XMS_ITS | Encounter Summary ---
Author Organization [employer] Address [address] [facility] [address]t [place] [address] Care Team Providers Care Staff Anesthesiologist Name Role Phone Belkis Francis MD Primary Care Provider [phone] Reason for Visit * Reason Comments Med Refill Encounter Details Date Type Department Care Team (Late st Contact Info) Description 09/02/2024 Refill [facility] MEDICAL [address] [place] [address] Belkis Francis MD [address] [place] [address] Body mass index (BMI) 40.0-44.9, adult (CMS/HCC) [...] (HCC) documented in this encounter Care Teams Staff Anesthesiologist Relationship Specialty Start Date End Date Belkis Francis MD [address] [place] [address] PCP - General Internal Medicine 10/26/22 documented as of this encounter
--- OUTSIDE RECORDS SUMMARY | 2025-09-24 18:26 | XMS_ITS | Encounter Summary ---
Author Organization [employer] Address [address] [facility] [address] [place] [address] Care Team Providers Care Salt Machine Operator Name Role Phone Belkis Francis MD Primary Care Provider [phone] Reason for Visit * Reason Comments Med Change Request Ozempic? Not sure ho w to que Encounter Details Date Type Department Care Team (Late st Contact Info) Description 01/25/2023 Refill [facility] MED[facility] [address] [place] [address] Belkis Francis MD [address] [place] [address] Social History Tobacco Use Types Packs/Day Years [...] Orientation Straight 01/22/2023 11 :47 AM EDT COVID-19 Exposure Response Date Recorded In the last 10 days, have yo u been in contact with someone who was confirmed or suspected to have Coronavirus/COVID-19? No / Unsure 01/25/2023 10:55 AM EDT documented as of this encounter Miscellaneous Notes * Telephone Encounter - Belkis Francis MD - 01/25/2023 1:59 PM EDT [facility] in [facility] instead. * Telephone Encounter - Talya Ray - 01/25/2023 1:10 PM EDT So not sure what to do . Called pharmacy and they have no ozempic. [facility]! Next? Refuse script or send through and wait to come into stock.? Inquiring minds will do whatever you would like. documented in this encounter Plan of Treatment Not on file documented as of this encounter Visit Diagnoses Not on filedocumented in this encounter Care Teams Salt Machine Operator Relationship Specialty Start Date End Date Belkis Francis MD [address] [place] [id number] PCP - General Internal Medicine 10/26/22 documented as of this encounter
--- OUTSIDE RECORDS SUMMARY | 2025-09-24 18:26 | XMS_ITS | Encounter Summary ---
Author Organization [employer] Address [address] [facility] [address] [place] [address] Care Team Providers Care Abatement Worker Name Role Phone Belkis Francis MD Primary Care Provider [phone] Encounter Details Date Type Department Care Team (Late st Contact Info) Description 07/07/2025 Orders Only [facility] [address] [place] [address] Belkis Francis MD [address] [place] [address] Social History Tobacco Use Types Packs/Day Years [...] EDT MRI BRAIN W WO CONTRAST Routine 07/03/20 9:33 AM EDT TRANSTHORACIC ECHO (TTE) COMPLETE Routine 07/02/2025 9:32 AM EDT XR FOOT 3+ VIEWS RIGHT Routine 9:32 AM EDT XR ANKLE 3 OR MORE VIEWS RIGHT Routine 07/02/2025 9:31 AM EDT CBC WITH AUTO DIFFERENTIAL Routine 07/01/2025 9:35 AM EDT XR CHEST PORTABLE Routine 07/01/2025 9:[address] CERVICAL SPINE WO CONTRAST Routine 07/01/2025 9:[address] HEAD WO CONTRAST Routine 07/01/2025 9 :29 AM EDT ECG 12-LEAD Routine 07/01/2025 9:29 AM EDT documented in this encounter Results * XR Chest 2 Views (07/05/2025 9:33 AM EDT) Anatomical Region Laterality Modality Chest Radiographic Mary Alice ging us Belkis Francis MD IMG XR PROCEDURES Final Result * MRI BRAIN W WO CONTRAST (07/03/2025 9:33 AM EDT) Anatomical Region Laterality Modality Magnetic Resonan ce us Belkis Francis MD IMG MRI PROCEDURES Final Result * Transthoracic echo (TTE) complete (07/02/2025 9:32 AM EDT) us Belkis Francis MD CV ECHO PROCEDURES Final Result * XR Foot 3+ Views Right (07/02/2025 9:32 AM EDT) Anatomical Region Laterality Modality Lower Extremities, Foot Right Radiogra phic Imaging us Belkis Frnacis MD IMG XR PROCEDURES Final Result * XR ANKLE 3 OR MORE VIEWS RIGHT (07/02/2025 9:31 AM EDT) Anatomical Region Laterality Modality Radiographic Mary Alice ging us Belkis Francis MD IMG XR PROCEDURES Final Result * CBC auto differential (07/01/2025 9:35 AM EDT) Blood Venous blood specimen / Unknown us Belkis Francis MD LAB BLOOD ORDERABLES Final Resul t * XR Chest Portable (07/01/2025 9:31 AM EDT) Anatomical Region Laterality Modality Radiographic Mary Alice ging us Belkis Francis MD IMG XR PROCEDURES Final Result * CT Cervical Spine w/o Contrast (07/01/2025 9:30 AM EDT) Anatomical Region Laterality Modality Spine, C-spine Computed Tomogra phy us Belkis Francis MD IMG CT PROCEDURES Final Result * CT HEAD WO CONTRAST (07/01/2025 9:29 AM EDT) Anatomical Region Laterality Modality Computed Tomogra phy us Belkis Francis MD IMG CT PROCEDURES Final Result * ECG 12 lead (07/01/2025 9:29 AM EDT) Result Otoniel Francis MD ECG ORDERABLES Final Result documented in this encounter Visit Diagnoses Not on filedocumented in this encounter Care Teams Abatement Worker Relationship Specialty Start Date End Date Belkis Francis MD [address] [place] [id number] PCP - General Internal Medicine 10/26/22 documented as of this encounter
--- OUTSIDE RECORDS SUMMARY | 2025-09-24 18:26 | XMS_ITS | Encounter Summary ---
Author Organization [employer] Address [address] [facility] [address] [place] [address] Care Team Providers Care News Clerk Name Role Phone Belkis Francis MD Primary Care Provider [phone] Reason for Visit * Reason Onset Date Comments VNA 08/05/2025 Encounter Details Date Type Department Care Team (Late st Contact Info) Description 08/05/2025 Telephone [facility] MEDICAL [address] [place] [address] Belkis Francis MD [address] [place] [address] VNA Social History Tobacco Use Types Packs/Day Years [...] encounter Miscellaneous Notes * Telephone Encounter - Bina Haley - 08/05/2025 4:30 PM EDT Vna called regarding the patient Vna reports patient is doing well and vitals are good Reports Rattling in patients lungs and a productive cough No sob reported Patient is taking dayquil and nightquil documented in this encounter Plan of Treatment Not on file documented as of this encounter Visit Diagnoses Not on filedocumented in this encounter Care Teams News Clerk Relationship Specialty Start Date End Date Belkis Francis MD [address] [place] [address] PCP - General Internal Medicine 10/26/22 documented as of this encounter
--- OUTSIDE RECORDS SUMMARY | 2025-09-24 18:26 | XMS_ITS | Encounter Summary ---
Author Organization [employer] Address [address] [facility] 7[address] [place] [address] Care Team Providers Care Motorized Squad Commanding Officer Name Role Phone Belkis Francis MD Primary Care Provider [phone] Encounter Details Date Type Department Care Team (Late st Contact Info) Description 04/30/2025 Orders Only [facility] [address] [place] [address] Belkis Francis MD [address] [place] [address] Social History Tobacco Use Types Packs/Day Years [...] Procedure Name Priority Date/Time Associated Diagnosis Comments US SCROTUM Routine 04/28/2025 7:54 AM EDT COMPREHENSIVE METABOLIC PANEL Routine 04/24/2025 7:56 AM EDT documented in this encounter Results * US SCROTUM (04/28/2025 7:54 AM EDT) Anatomical Region Laterality Modality Ultrasound us Belkis Francis MD IMG US PROCEDURES Final Result * Comprehensive Metabolic Panel (04/24/2025 7:56 AM EDT) Blood Venous blood specimen / Unknown us Belkis Francis MD LAB BLOOD ORDERABLES Final Resul t documented in this encounter Visit Diagnoses Not on filedocumented in this encounter Care Teams Motorized Squad Commanding Officer Relationship Specialty Start Date End Date Belkis Francis MD [address] [place] [id number] PCP - General Internal Medicine 10/26/22 documented as of this encounter
--- OUTSIDE RECORDS SUMMARY | 2025-09-24 18:27 | XMS_ITS | Encounter Summary ---
Author Organization [facility] Address [address] [place] [address] Phone Care Team Providers Care Deliver Driver Name Role Phone Pcp, Unknown Primary Care Provider Belkis Gomes MD Primary Care Provider [phone] Encounter Details Date Type Department Care Team (Late st Contact Info) Description 05/18/2025 Procedure Pass [facility] [address] [place] [address] Social History Tobacco Use Types Packs/Day Years [...] on file Sexual Orientation Not on file documented as of this encounter Plan of Treatment Not on file documented as of this encounter Visit Diagnoses Not on filedocumented in this encounter Care Teams Deliver Driver Relationship Specialty Start Date End Date Pcp, Unknown PCP - General 04/30/25 05/19/25 Belkis Francis MD [address] [place] [address] [email or web address] PCP - General Internal Medicine 05/20/25 documented as of this encounter Additional Source Comments The information contained in this document represents components of the legal health record. It is not the complete legal health record.[facility]
--- OUTSIDE RECORDS SUMMARY | 2025-09-24 18:27 | XMS_ITS | Data Portability ---
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 Name Role Phone [facility] (NONO UNIT) OTHER FAHAD TONY Primary Care Provider Assessment Encounter Date Assessment Date Assessment LastModified by Organization Details LastModified Time 05/11/2025 05/11/202505/11: wbc 9.70, hgb 11.3, hct 37.0, mag 1.9, phos 3.6, na 135, k 4.0, bun 18, creat 0.60 05/10: wbc 9.91, hgb 11.5, hct 38.2, na 132, k 4.1, bun 14, creat 0.60 05/09: na 131, k 4.4, bun 13, creat 0.60 05/07: na 140, k 4.3, bun 63, creat 2.70, wba 9.32, hgb 10.2, hct 31.5 05/05: wbc 9.39, hgb 9.5, hct 31.1, na 132, k 4.0, bun 11, creat 0.50 04/30/25-WBC-1 0.04, H/H-8.3/28.1, plts-321, BUN/Cr-10/0.5 , GFR-105, Na+134, K+4.3, glu-117, alb-3.1 05/05: wbc 9.39, hgb 9.5, hct 31.1, na 132, k 4.0, bun 11, creat 0.50 glord Not available 05/11/2025 10:21:37 05/12/2025 05/12/202505/11: wbc 9.70, hgb 11.3, hct 37.0, mag 1.9, phos 3.6, na 135, k 4.0, bun 18, creat 0.60 05/10: wbc 9.91, hgb 11.5, hct 38.2, na 132, k 4.1, bun 14, creat 0.60 05/09: na 131, k 4.4, bun 13, creat 0.60 05/07: na 140, k 4.3, bun 63, creat 2.70, wba 9.32, hgb 10.2, hct 31.5 05/05: wbc 9.39, hgb 9.5, hct 31.1, na 132, k 4.0, bun 11, creat 0.50 04/30/25-WBC-1 0.04, H/H-8.3/28.1, plts-321, BUN/Cr-10/0.5 , GFR-105, Na+134, K+4.3, glu-117, alb-3.1 05/05: wbc 9.39, hgb 9.5, hct 31.1, na 132, k 4.0, bun 11, creat 0.50 glord Not available 05/12/2025 10:27:06 05/13/2025 05/13/202505/13: na 134, k 4.2, bun 18, creat 0.50, wbc 9.81, hgb 11.6, hct 38.2 05/11: wbc 9.70, hgb 11.3, hct 37.0, mag 1.9, phos 3.6, na 135, k 4.0, bun 18, creat 0.60 05/10: wbc 9.91, hgb 11.5, hct 38.2, na 132, k 4.1, bun 14, creat 0.60 05/09: na 131, k 4.4, bun 13, creat 0.60 05/07: na 140, k 4.3, bun 63, creat 2.70, wba 9.32, hgb 10.2, hct 31.5 05/05: wbc 9.39, hgb 9.5, hct 31.1, na 132, k 4.0, bun 11, creat 0.50 04/30/25-WBC-1 0.04, H/H-8.3/28.1, plts-321, BUN/Cr-10/0.5 , GFR-105, Na+134, K+4.3, glu-117, alb-3.1 glord Not available 05/14/2025 15:14:01 05/17/2025 05/17/202505/13: na 134, k 4.2, bun 18, creat 0.50, wbc 9.81, hgb 11.6, hct 38.2 05/11: wbc 9.70, hgb 11.3, hct 37.0, mag 1.9, phos 3.6, na 135, k 4.0, bun 18, creat 0.60 05/10: wbc 9.91, hgb 11.5, hct 38.2, na 132, k 4.1, bun 14, creat 0.60 05/09: na 131, k 4.4, bun 13, creat 0.60 05/07: na 140, k 4.3, bun 63, creat 2.70, wba 9.32, hgb 10.2, hct 31.5 05/05: wbc 9.39, hgb 9.5, hct 31.1, na 132, k 4.0, bun 11, creat 0.50 04/30/25-WBC-1 0.04, H/H-8.3/.1, plts-321, BUN/Cr-10/0.5 , GFR-105, Na+134, K+4.3, glu-117, alb-3.1 glord Not available 05/17/2025 10:24:54 05/18/2025 05/18/202505/13: na 134, k 4.2, bun 18, creat 0.50, wbc 9.81, hgb 11.6, hct 38.2 05/11: wbc 9.70, hgb 11.3, hct 37.0, mag 1.9, phos 3.6, na 135, k 4.0, bun 18, creat 0.60 05/10: wbc 9.91, hgb 11.5, hct 38.2, na 132, k 4.1, bun 14, creat 0.60 05/09: na 131, k 4.4, bun 13, creat 0.60 05/07: na 140, k 4.3, bun 63, creat 2.70, wba 9.32, hgb 10.2, hct 31.5 05/05: wbc 9.39, hgb 9.5, hct 31.1, na 132, k 4.0, bun 11, creat 0.50 04/30/25-WBC-1 0.04, H/H-8.3/28.1, plts-321, BUN/Cr-10/0.5 , GFR-105, Na+134, K+4.3, glu-117, alb-3.1 glord Not available 05/18/2025 10:05:22 Plan of Treatment Reminders Order Date Submit Date Provider Last Modified By Organization Details Last Modified Time Details Appointments None record ed. Lab None record ed. Referral None record ed. Procedures None record ed. Surgeries None record ed. Imaging None record ed. Medication Orders None record ed. Patient TargetsNo targets recorded. Patient InstructionsNo instructions recorded. Reason for Referral None Reported. Problems Name Problem SNOMED Code Status Onset Date Resolution Date Notes Provider Name and Address Organization Details Recorded Time Hypervolemia 47749315 Active 2024 Not Available [facility] 16:56:21 Atrial fibrillation 85204041 Active 2024 Not Available [facility] 16:57:19 Hypo-osmolali ty and or hyponatremia 097070719 Active 2024 Not Available [facility] 16:58:19 Hyperlipidemi a 63938766 Active 2024 Not Available [facility] 17:00:16 Retention of urine 836006339 Active 2024 Not Available [facility] 17:00:18 Chronic pain 51067368 Active 2024 Not Available [facility] 17:02:44 Anxiety disorder 036888574 Active 2024 Not Available [facility] 5 17:03:13 Localized edema 312730078 Active 2024 Not Available [facility] 5 17:06:10 Disorientated 29693668 Active 2024 Not Available [facility] 5 17:06:12 Urinary tract obstruction 5527932 Active 2024 Not Available [facility] 5 17:06:14 Edema of lower extremity 659453514 Active 2024 Kianna Holley MD [address], [address], [place], [address] , [facility] 5 20:24:58 Edema of scrotum 54677394 Active 2024 Kianna Holley MD [address], [address], [place], [address] , [facility] 5 20:26:23 Acute hyponatremia 7832099 Active 2024 Kianna Holley MD [address], [address], [place], [address] , [facility] 5 20:26:42 Anemia 642546699 Active 2024 Kianna Holley MD [address], [address], [place], [address] , [facility] 5 20:32:54 Asthenia 03474356 Active 2024 Kianna Holley MD [address], [address], [place], [address] , [facility] 5 20:36:48 Essential hypertension 83572396 Active 2024 Kianna Holley MD [address], [address], [place], [address] , [facility] 5 20:40:03 Paroxysmal atrial fibrillation 921265889 Active 2024 Kianna Holley MD [address], [address], [place], [address] , [facility] 5 20:40:19 Coronary arteriosclero sis 88628655 Active 2024 Kianna Holley MD [address], [address], [place], [address] , [facility] 5 20:40:40 Obstructive sleep apnea syndrome 21672324 Active 2024 Kianna Holley MD [address], [address], [place], [address] , [facility] 5 20:44:55 Osteoarthriti s 942728574 Active 2024 Kianna Holley MD [address], [address], [place], [address] , [facility] 5 20:45:44 Morbid obesity 004231128 Active 2024 Kianna Holley MD [address], [address], [place], [address] , [facility] 5 20:46:26 Body mass index 40+ - severely obese 685265626 Active 2024 Kianna Holley MD [address], [address], [place], [address] , [facility] 5 20:46:33 Benign prostatic hyperplasia with outflow obstruction 588888867 Active 2024 Kianna Holley MD [address], [address], [place], [address] , [facility] 5 20:47:29 Insomnia 531567747 Active 2024 Kianna Holley MD [address], [address], [place], [address] , [facility] 5 20:48:31 Constipation 89443952 Active 2024 Kianna Holley MD [address], [address], [place], [address] , [facility] 5 20:49:28 Gastroesophag eal reflux disease without esophagitis 996214623 Active 2024 Kianna Holley MD [address], [address], [place], [address] , [facility] 5 20:53:33 Chronic obstructive pulmonary disease 64404840 Active 2024 Kianna Holley MD [address] [facility], [address], [place], [address] , [facility] [employer] [facility] 5 20:57:11 Problem Notes None recorded. Medical Equipment None Reported. Allergies No known drug allergies Medications Name Sig Start Date Stop Date Status Note LastModified by Organization Details LastModified Time Prinivil 5 mg tablet Give 1 tablet by mouth one time a day for HTN 2024 active Not Available Not Available Not Avai lable acetaminoph en 325 mg tablet Give 2 tablet by mouth every 6 hours as needed for Pain Do not exceed 3 grams in 24 hours.Tot al 650 mg AND Give 2 tablet by mouth every 6 hours as needed for Elevated temp >101 Do not exceed 3 grams in 24 hours.Tot al 650 mg 2024 active Not Available Not Available Not Avai lable phentermine 15 mg capsule Give 1 capsule by mouth two times a day for Morbid Obesity 2024 active Not Available Not Available Not Avai lable levofloxaci n 250 mg tablet Give 1 tablet by mouth one time a day for Swollen Scrotum for 5 Days 05/05 completed Not Available Not Available Not Available tamsulosin 0.4 mg capsule Give 1 capsule by mouth one time a day for Scrotal Swelling 2024 active Not Available Not Available Not Avai lable Lasix 20 mg tablet Give 1 tablet by mouth at bedtime for Sleep Aide/Inso mnia 05/01 completed Not Available Not Available Not Available DSS 100 mg capsule Give 1 capsule by mouth one time a day for Constipat ion preventio n 2024 active Not Available Not Available Not Avai lable montelukast 10 mg tablet Give 1 tablet by mouth in the evening for DEANNA 2024 active Not Available Not Available Not Avai lable Laxative (sennosides ) 8.6 mg tablet Give 1 tablet by mouth every 24 hours as needed for Constipat ion 2024 active Not Available Not Available Not Avai lable Ambien 5 mg tablet Take 1 tablet every day by oral route. 2024 active Not Available Not Available Not Avai lable Tylenol Extra Strength 500 mg tablet Give 2 tablet by mouth three times a day for Pain Managment 2024 active Not Available Not Available Not Avai lable Lexapro 20 mg tablet Give 1 tablet by mouth one time a day for Depressio n 2024 active Not Available Not Available Not Avai lable iron 325 mg (65 mg iron) tablet Give 1 tablet by mouth one time a day for Supplemen t Avoid dairy products, tetracycl ine, etc. within 2 hours. May discolor urine or feces. Take with food or meal if upset stomach occurs. 2024 active Not Available Not Available Not Avai lable Crestor 40 mg tablet Give 1 tablet by mouth one time a day for HLD 2024 active Not Available Not Available Not Avai lable metoprolol tartrate 25 mg tablet Give 1 tablet by mouth two times a day for HTN 2024 active Not Available Not Available Not Avai lable Budeprion SR 150 mg tablet, sustained release Give 1 tablet by mouth two times a day for Depressio n 2024 active Not Available Not Available Not Avai lable Cymbalta 60 mg capsule,del ayed release Give 1 capsule by mouth one time a day for Depressio n 2024 active Not Available Not Available Not Avai lable melatonin 5 mg tablet Give 1 tablet by mouth at bedtime for Sleep Aide 2024 active Not Available Not Available Not Avai lable sodium phosphates 19 gram-7 gram/197 mL enema Insert 1 unit rectally every 24 hours as needed for Constipat ion Use only if Bisacodyl Supposito ry is ineffecti ve 2024 active Not Available Not Available Not Avai lable Myrbetriq 50 mg tablet,exte nded release Give 1 tablet by mouth one time a day for OAB 2024 active Not Available Not Available Not Avai lable Eliquis 5 mg tablet Give 1 tablet by mouth two times a day for PAF 2024 active Not Available Not Available Not Avai lable OxyContin 40 mg tablet,teresa h resistant,e xtended release Give 1 tablet by mouth every 12 hours for Pain Managment 2024 active Not Available Not Available Not Avai lable Acid Homoeopath (omeprazole ) 20 mg capsule,del ayed release Give 1 capsule by mouth one time a day for Gerd 2024 active Not Available Not Available Not Avai lable Powderlax 17 gram oral powder packet Give 17 gram by mouth one time a day for Osmotic laxative Dilute in 6-8 ounces of fluid 2024 active Not Available Not Available Not Avai lable OneLAX Bisacodyl 10 mg rectal suppository Insert 1 supposito ry rectally every 24 hours as needed for constipat ion Use if Senna is Ineffecti ve 2024 active Not Available Not Available Not Avai lable Vitals None Recorded Social History Question Answer Notes LastModified by Organization Details LastModified Time Tobacco Smoking Status Former Smoker quit in the Kianna Holley MD [address] [place] [address], [address], [place], [address], [facility] 04/30/2025 19:38:54 Do You Have An Advance Directive? Yes Information not available 04/30/2025 What Is Your Code Status? Full Code Information not available 04/30/2025 Which Illicit Or Recreational Drugs Have You Used? Cannabis And CBD Oil Information not available 04/30/2025 Where Do You Live? [facility] , Stays On 1st Floor. 3 Steps To Enter With 2 Rails. Information not available 04/30/2025 Legal Guardian? No Informati on not available 04/30/2025 Do You Have A Medical Power Of Phonograph Needle Tip Maker? Yes Not Invoked Information not available 04/30/2025 What Was The Date Of Your Most Recent Tobacco Screening? 04/30/2025 Information not available 04/30/2025 Do You Have An Out Of Hospital DNR? No Information not available 04/30/2025 What Is Your Relationship Status? Information not available 04/30/2025 How Much Tobacco Do You Smoke? No Information not available 04/30/2025 Has Tobacco Cessation Counseling Been Provided? No N/A As Pt No Longer Smokes Information not available 04/30/2025 Have You Used IV Drugs? No Information not available 04/30/2025 Sex: Unknown Functional Status Question Answer Note LastModified by Organizat ion Details LastModified Time Do you use any illicit or recreational drugs? Yes Information not available 04/30/2025 Do you or have you ever used any other forms of tobacco or nicotine? No Information not available 04/30/2025 What is your level of alcohol consumption? None Information not available 04/30/2025 Mental Status None recorded. Family History Nothing Reported. Medical History No medical history recorded. Past Encounters Encounter ID Performer Location Encounter Start Date Encounter Closed Date Diagnosis/Indication Diagnosis SNOMED-CT Code Diagnosis ICD10 Code Diagnosis IMO Codes Diagnosis Note [id number] Kianna Holley MD [facility] on [address] [place] [address] 04/30/2025 16:59:26 05/03/2025 12:57:02 Edema of lower extremity 665052528 R60.0 58585 Much improved.C urrently lasix written prn, will change to 20 mg qd.Daily wts ordered.Mo nitor fluid status, wts and labs. Edema of scrotum 2843530 0 N50.89 354649 Still swollen, but much improved per pt. and by my assessment compared to descriptio n in hospital notes.Cont inue Lasix as above.Cont inue levofloxac in 250 mg qd until 05/05.Monit or Acute hyponatremia 33531 02 E87.1 29989 Na+ back to nl.Monitor labs weekly Essential hypertension 25036220 I10 77880 BP in good control since here.Vega ing Lasix as above.Cont inue lisinopril 5 mg qd and metoprolol 25 mg BID.Monito r BP and labs. Paroxysmal atrial fibrillation 958572209 I48.0 1879795 Rate in good control on meds as above.Cont inue eliquis 5 mg BID for AC.Monitor HR and bleeding risk. Coronary arteriosclerosis 71967620 I25.10 63136451 No recent sxs.Contin ue meds as above and rosuvastat in 40 mg qd.Monitor for CP.F/U with cardio prn. Morbid obesity 250465584 E66.01 14404 Working with chronometer tester outpt.Cont inue phentermin e 15 mg BID.Encour age healthy eating.Mon itor wts. Body mass index 40+ - severely obese 548431533 Z68.42 376813 As above. Benign pro static hyperplasia with outflow obstruction 351516393 N40.1 N13.8 393646 With constantino currently. Hadn't needed in past.Plan voiding trial for when he is more mobile.Con tinue tamsulosin 0.4 mg qd and Myrbetriq 50 mg qd.Uro consult prn Osteoarthritis 471135605 M15.0 1849573 Shoulders are the worst.On oxycontin 40 mg BID chronicall y.Start APAP 1000 mg TID.Monito r sxs. Obstructiv e sleep apnea syndrome 15685991 G47.33 82401 Doesn't tolerate CPAP.Monit or resp status.F/U prn Anemia 529997467 D64.89 16511506 Concern for possible GI source.Hgb stable today, no evidence of bleeding.C ontinue FeSo4 325 mg qd.Monitor labs.Monit or for signs of bleeding.F /U for colonoscop y as outpt. Asthenia 94256826 R53.1 84302 Very deconditio darshan.Needs PT/OT for strengthen ing, balance, gait training, safety and function.C ontinue fall precaution s.Monitor for safety. Insomnia 016615267 G47.0 9 86432 Usually sleeps in recliner.T rouble sleeping since here.Will start zolpidem 5 mg qhsMonitor sleep patterns Constipation 96585721 K5 9.09 070947 Will start miralax 17 gms qd and continue prn bowel regimen.Mo nitor bowel function. Gastroesop hageal reflux disease without esophagitis 606440262 K21.9 774053 No current sxs.Contin ue omeprazole 20 mg qd.Monitor GI sxs. Depressive disorder 2178 9007 F32.89 83626729 Mood a little down tonight.Co ntinue buproprion 150 mg BID, duloxetine 60 mg qd (also on for pain), and escitalopr am 20 mg qd.Monitor mood.Consu lt psych prn Chronic ob structive pulmonary disease 81714483 J44.9 58874708 Resp sxs at baseline.C ontinue montelukas t 10 mg qd.Monitor resp status [id number] MATTHEW [facility]let[facility] at [facility] on [address] [place] [address] 05/05/2025 09:48:29 05/06/2025 14:16:01 Edema of lower extremity 538588179 R60.0 57545 stablelasi x 20 mg qdDaily wts ordered, 375 todayMonit or fluid status, wts and labs Acute hyponatremia 21906 02 E87.1 95021 - Hyponatrem ia 132, was 134.- Repeat labs saturday, if continues to drift down will add fluid restrictio n Asthenia 14472324 R53.1 99230 - Therapy sessions include bed mobility training with contact guard assistance to prevent excessive rolling.- Utilizes a Ro lift for transfers from bed to wheelchair .- Tolerated approximat debby 4 hours out of bed with occasional cues for posture correction . Anemia 783681576 D64.89 25780994 Concern for possible GI source.Hgb stable today, no evidence of bleeding.C ontinue FeSo4 325 mg qd.Monitor labs.Monit or for signs of bleeding.w rote order for colonoscop y to rule out bleeding source Benign pro static hyperplasia with outflow obstruction 365038076 N40.1 N13.8 381445 With constantino currently. Hadn't needed in past.Plan voiding trial for when he is more mobile, not ready at this timeContin ue tamsulosin 0.4 mg qd and Myrbetriq 50 mg qd.Uro consult prn Delirium 6853311 R41.0 43214 - Family reported that the patient's mental status is not at baseline and appears more confused.- Urine sample requested to rule out urinary tract infection as a potential cause of confusion, was picked up this morning by lab- staff reports he has been confused since admission and this is not new, but family states prior to hospital he was not hallucinat ing at all [id number] [facility]W [facility] at [facility] on [address] [place] [address] 05/07/2025 09:21:43 05/10/2025 11:07:24 Delirium 9014235 R41.0 05831 - seems off but staff states he has been this way since admission- UA normal-lab s stable with exception of hyponatrem ia Edema of l ower extremity 625423178 R60.0 58095 stablelasi x 20 mg qdDaily wts ordered,35 1- unclear if that is accurateMo nitor fluid status, wts and labs Acute hyponatremia 53712 02 E87.1 50865 - Hyponatrem ia 131 today-add fluid restrictio n to 1800 cc through then re-eval- Repeat labs saturday [id number] MATTHEW [facility]let[facility] at [facility] on [address] [facility] [place] [address] 05/10/2025 09:46:43 05/14/2025 10:09:37 Delirium 1937995 R41.0 80118 seems much more improved today, answering questions normallyob tain phos and mag level tomorrowmo nitor mental status changeLFTS in range Edema of l ower extremity 710446566 R60.0 63200 351.4 last done todayMonit or fluid status, wts and labs Acute hyponatremia 66271 02 E87.1 76872 - Hyponatrem ia 131 as of 05/09-jean-claude nue fluid restrictio n to 1800 cc- Repeat labs tomorrow Asthenia 83574935 R53.1 14962 Supine AROM B LE with intermitte nt AAROM for improved technique: SLR, abd, knee flex and ankle pumps for increased strength during functional mobility tasksPt approached several times throughout day with feet or LE hanging off bed, cues for reposition ing. Observed increase amount of tremulous movements his date, reported to nurse. Education on and performed bridging with supervisio n and cues for technique. Min A for supine<>si t for stability/ safety Anemia 048625650 D64.89 62334155 hgb stable, slight hematuria in cathContin ue FeSo4 325 mg qd.waiting for colonoscop y apt Benign pro static hyperplasia with outflow obstruction 075029509 N40.1 N13.8 204333 pull constantino cath todayPVR q shift and SC >400 ccContinue tamsulosin 0.4 mg qd and Myrbetriq 50 mg qd.Uro consult prn Osteoarthritis 718330448 M15.0 3671381 refill oxycontin [id number] [facility] at [facility] on [address] [place] [address] 05/11/2025 10:16:08 05/14/2025 10:56:32 Delirium 7930103 R41.0 10736 phos and mag normalCBC in range, BMP in range with improved NAlast UA normalseem s baseline for patient Acute hyponatremia 22381 02 E87.1 27513 - improved to 132- keep fluid restrictio n 1800 cc-repeat labs next week , although appears dry today Anemia 032781799 D64.89 31113720 CBC In range today with hgb 11.3Contin ue FeSo4 325 mg qd.waiting for colonoscop y apt Benign pro static hyperplasia with outflow obstruction 487561710 N40.1 N13.8 350116 voiding normallyco ntinue flomax [id number] MATTHWE BHATIA [address] [place] [address] 05/12/2025 10:26:26 05/14/2025 11:14:02 Delirium 6683269 R41.0 57040 seems resolved Benign pro static hyperplasia with outflow obstruction 145448675 N40.1 N13.8 954145 voiding normallyco ntinue flomax Contusion 663294805 T14. 8XXA 36941 on inside on left forearmlik debby due to traumatic blood drawmonito r for change [id number] MATTHEW [facility]let[facility] at [facility] on [address] [place] [address] 05/13/2025 11:41:01 05/17/2025 13:33:12 Benign prostatic hyperplasia with outflow obstruction 519803332 N40.1 N13.8 407583 voiding normallyco ntinue flomax Contusion 389595280 T14. 8XXA 78569 on inside on left forearmlik debby due to traumatic blood drawmonito r for change Delirium 9735173 R41.0 87037 seems much more improved today, answering questions normallyla bs in range Acute hyponatremia 45343 02 E87.1 56706 135 on last labsDC fluid restrictio nrepeat labs next week Asthenia 60296871 R53.1 19953 see HPIwill get patient OOB daily for two hours into reclinerri sks of falls reviewed with family Anemia 987571814 D64.89 13863451 hgb stableCont inue FeSo4 325 mg qd.waiting for colonoscop y apt Insomnia 049568647 G47.0 9 07306 DC ambien now- see HPIstart melatonin 5 mg qhsmonitor for sleep disturbanc e [id number] MATTHE[facility] at [facility] on [address] [place] [address] 05/17/2025 10:15:36 05/19/2025 19:45:45 Insomnia 585246543 G47.09 01159 continue melatonin 5 mg qhsmonitor for sleep disturbanc buddy no restart ambien per family Delirium 2104517 R41.0 59619 seems much more improved today, answering questions normallyla bs in range Acute hyponatremia 88840 02 E87.1 75072 135 on last labsrepeat labs tomorrow [id number] MATTHEW [facility] at [facility] on [address] [place] [address] 05/18/2025 09:41:40 05/19/2025 19:53:41 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 88848056 right pupil fixedwith concern for stroke or neurologic al issuesend to ED now Spasmodic movement 34609 6004 R25.2 3184797 concern for underlying neurologic al issuesend to ED now Health Concerns Section Related Observation LastModified by Organization Detai ls LastModified Time None Recorded Concern Status LastModified by Organization Details LastModified Time None Recorded Advance Directives Directive Y: Payers Insurance Date Sequence Insurance Name Policy Number Policy Verde Covered Member ID Verde Member ID Guarantor Name 05/17/2025 2 [employer] (INDEMNITY) [id number] 2 Lennox Braxton [id number] Lennox Braxton 05/03/2025 1 MEDICARE [place]: [email or web address] Lennox Braxton [id number] 2 Lennox Braxton Notes Date Note Type Note Provider Name and Address Organization Details Recorded Time 05/11/2025 text/html The patient is a 79-year-old male, seen today for an acute rounding visit. The patient is currently in rehab following a hospital stay for fluid volume overload and severe sacral edema, which was complicated by hyponatremia. He had voiding trial started yesterday with cath pulled out, he tells me this AM he has been able to void on his own since it was removed. Confirmed this with the nurse, she will bladder scan later this morning as well. He offers no complaints, he appears baseline in bed. Labs done today, mag and phos checked due to cognitive concern and in range. His PMH includes HTN, CAD with hx VT and of cath 20 yrs ago, DEANNA doesn't tolerate CPAP, Afib on Eliquis, anemia, morbid obesity, COPD, GERD, BPH, OA s/p right TKR in 2022, and depression. MATTHEW CARRILLO [address] [place] [address], [address], [place], [address], [facility] 05/11/2025 10:23:16 05/12/2025 text/html The patient is a 79-year-old male, seen today for an acute rounding visit. The patient is currently in rehab following a hospital stay for fluid volume overload and severe sacral edema, which was complicated by hyponatremia. Patient being followed for voiding trial, he tells me today he is voiding normally and staff confirms that. On exam patient with very large bruise to inside of left forearm. This is brand new from yesterday. He had blood draw this AM and vp lab reported to nurse that she could not obtain blood. Likely traumatic draw and due to being on eliquis caused gross bleeding. His PMH includes HTN, CAD with hx VT and of cath 20 yrs ago, DEANNA doesn't tolerate CPAP, Afib on Eliquis, anemia, morbid obesity, COPD, GERD, BPH, OA s/p right TKR in 2022, and depression. MATTHEW CARRILLO [address] [place] [address], [address], [place], [address], [facility] 05/12/2025 10:46:46 05/13/2025 text/html The patient is a 79-year-old male, seen today for an acute rounding visit. The patient is currently in rehab following a hospital stay for fluid volume overload and severe sacral edema, which was complicated by hyponatremia. Patient being followed for hyponatremia, he was placed on fluid restriction earlier this week and has sine resolved with levels back to normal this morning at 134. His family has been in recently and upset about many things, they would like to speak to a provider. Called and left message on HCP VM and called cell phone with no VM available. Patient was placed on ambien by admitting MD for insomnia and family is upset, patient is his own person and agreed to this. Patient has been informed of his plan of care each time I have seen him, he was understanding of his voiding trial and I explained his hyponatremia.HCP showed up so meeting was held with unit nurse patient, hcp and this provider. Patient has agreed to stop ambien and try melatonin. She would like patient out of bed into chair with ro daily. explained our concerns that patient often has spastic movements and we are concerned about him sliding out of chair. Agreement made to ro patient out of bed into recliner daily for two hours while family is visiting. If they cannot make it they will call and let us know. Family educated on PT concerns for falls thoroughly. HCP had no other concerns at end of visit. His PMH includes HTN, CAD with hx VT and of cath 20 yrs ago, DEANNA doesn't tolerate CPAP, Afib on Eliquis, anemia, morbid obesity, COPD, GERD, BPH, OA s/p right TKR in 2022, and depression. MATTHEW CARRILLO [address] [place] [address], [address], [place], [address], [facility] [place] [facility] 05/14/2025 15:15:46 05/17/2025 text/html The patient is a 79-year-old male, seen today for an acute rounding visit. The patient is currently in rehab following a hospital stay for fluid volume overload and severe sacral edema, which was complicated by hyponatremia. Patient being followed for mental status changes. Nurse reports he had some jerky movement this AM and she was worried. Went to see patient and he appears at baseline, he is in a good mood and converses normally. He tells me he has been enjoying getting in the chair everyday to visit with his family. He offers no new complaints, voiding well.His ambien was stopped last week and melatonin started, he tells me he is sleeping well. His PMH includes HTN, CAD with hx VT and of cath 20 yrs ago, DEANNA doesn't tolerate CPAP, Afib on Eliquis, anemia, morbid obesity, COPD, GERD, BPH, OA s/p right TKR in 2022, and depression. MATTHEW CARRILLO [address] [facility], [address], [place], [address], [employer] 05/17/2025 10:33:07 05/18/2025 text/html The patient is a 79-year-old male, seen today for an acute rounding visit. The patient is currently in rehab following a hospital stay for fluid volume overload and severe sacral edema, which was complicated by hyponatremia. Patient was seen yesterday and appeared to be at his baseline, although his baseline isn't very clear minded. Today TIMBER SUPERVISOR tells me he is off his baseline, he apparently had a tough night last night. This morning on exam, right pupil fixed and does not dilate. On thorough review of hospital paperwork they state PERRLA. He has no CVA history, at this time student equal and no facial droop. However, due to spastic jerking movements, right fixed pupil and worsening cognition will send to ED now for formal workup and head CT. His PMH includes HTN, CAD with hx VT and of cath 20 yrs ago, DEANNA doesn't tolerate CPAP, Afib on Eliquis, anemia, morbid obesity, COPD, GERD, BPH, OA s/p right TKR in 2022, and depression. MATTHEW CARRILLO [address], [address], [place], [address], [employer] 05/18/2025 10:08:47
--- OUTSIDE RECORDS SUMMARY | 2025-09-24 18:27 | XMS_ITS | Encounter Summary ---
Author Organization [facility] Address [address] [place] [address] Phone Care Team Providers Care Service Or Work Dispatcher Chief Name Role Phone Pcp, Unknown Primary Care Provider Belkis Gomes MD Primary Care Provider Encounter Details Date Type Department Care Team (Late st Contact Info) Description 05/18/2025 Procedure Pass [facility], Ct Scan - [address] [address] Social History Tobacco Use Types Packs/Day Years [...] on filedocumented in this encounter Care Teams Service Or Work Dispatcher Chief Relationship Specialty Start Date End Date Pcp, Unknown PCP - General 04/30/25 05/19/25 Belkis Francis MD [address] [place] [id number] [email or web address] PCP - General Internal Medicine 05/20/25 documented as of this encounter Additional Source Comments The information contained in this document represents components of the legal health record. It is not the complete legal health record.[facility]
--- OUTSIDE RECORDS SUMMARY | 2025-09-24 18:27 | XMS_ITS | Encounter Summary ---
Author Organization [employer] Address [address] [place] [address] [address] [place] [address] Care Team Providers Care Fluid Dynamicist Name Role Phone Belkis Francis MD Primary Care Provider Reason for Visit * Reason Onset Date Comments Med Refill 09/20/2025 CSA Rx REFILLS O N MS CONTIN & OXY Encounter Details Date Type Department Care Team (Late st Contact Info) Description 09/20/2025 Refill [facility] MEDICAL [address] [place] [address] Belkis Francis MD [address] [place] [address] Chronic pain syndrome; Chronic pain disorder Social History Tobacco Use Types Packs/Day Years [...] encounter Miscellaneous Notes * Telephone Encounter - Valeria Singletary, A - 09/20/2025 11:36 AM EST [facility] Last fill Date: 08/24/25 #30/30 & 08/24/25 #180/30 [facility] sold Date: 08/24 Last OV: 09/13/25 TELEMED Next OV: NONE SCHEDULED Last UTOX: DUE CSA Date: NEEDS TO BE UPDATED IN EPIC DNF Date: REFILLS DUE 09/23 documented in this encounter Plan of Treatment Not on file documented as of this encounter Visit Diagnoses Diagnosis Chronic pain syndrome Chronic pain disorder Chronic pain syndrome documented in this encounter Care Teams Fluid Dynamicist Relationship Specialty Start Date End Date Belkis Francis MD [address] [place] [id number] PCP - General Internal Medicine 10/26/22 documented as of this encounter
--- OUTSIDE RECORDS SUMMARY | 2025-09-24 18:27 | XMS_ITS | Encounter Summary ---
Author Organization [employer] [facility] Address [address] [facility] 7t [place] [address] Care Team Providers Care Woodworking Machine Feeder Name Role Phone Belkis Francis MD Primary Care Provider [phone] Reason for Visit * Reason Onset Date Comments Paperwork/Forms 06/24/2025 Encounter Details Date Type Department Care Team (Late st Contact Info) Description 06/24/2025 Telephone [facility] MEDICAL [address] [place], [place] [id number] Belkis Francis MD [address] [place], [place] [phone] Paperwork/Forms Social History Tobacco Use Types Packs/Day Years [...] encounter Miscellaneous Notes * Telephone Encounter - Mely Hernandez - 06/24/2025 3:42 PM EDT Paperwork from [facility] for Dr Francis's review and signature. Paperwork in providers bin. Thank you documented in this encounter Plan of Treatment Not on file documented as of this encounter Visit Diagnoses Not on filedocumented in this encounter Care Teams Woodworking Machine Feeder Relationship Specialty Start Date End Date Belkis Francis MD [address] [place] [address] PCP - General Internal Medicine 10/26/22 documented as of this encounter
--- OUTSIDE RECORDS SUMMARY | 2025-09-24 18:27 | XMS_ITS | Encounter Summary ---
Author Organization [employer] Address [address] [facility] 7t [place] [address] Care Team Providers Care Door Worker Name Role Phone Belkis Francis MD Primary Care Provider [phone] Reason for Visit * Reason Onset Date Comments VNA 09/15/2025 Verbal Orders 09/15/2025 Medication Question 09/15/2025 Encounter Details Date Type Department Care Team (Late st Contact Info) Description 09/15/2025 Telephone [facility] MEDICAL [address] [place] [address] Belkis Francis MD [address] [place] [address] VNA; Verbal Orders; Medication Question Social History Tobacco Use Types Packs/Day Years [...] encounter Miscellaneous Notes * Telephone Encounter - Jeanna Diane LPN - 09/22/2025 8:40 AM EST Called Maddie at [facility] and left a message advising stay off Lisinopril for now. Also let Maddie know lab orders have been faxed to their office. Enc'd to CB with questions. * Telephone Encounter - Belkis Francis MD - 09/21/2025 4:31 PM EST Lab orders in * Telephone Encounter - Teodora Cox CNP - 09/15/2025 10:54 AM EST Ok to wait for PCP return, please review with Dr. Francis Saturday * Telephone Encounter - Chantale Meadows LPN - 09/15/2025 10:50 AM EST Please advise. * Telephone Encounter - Bina Haley - 09/15/2025 10:12 AM EST [facility] called regarding the patient Please call back to verify if the patient was advised to stop taking the following medication lisinopril 5 MG tablet Please also provide verbal orders on what labs need to be drawn for the patient Labs can be drawn next week documented in this encounter Plan of Treatment Scheduled Orders Name Type Priority Associated Diagnoses Orde r Schedule Comprehensive metabolic panel Lab Routine Hypercarbia Expected: 09/21/2025 (Approximate), Expires: 09/21/2026 Hemoglobin A1c Lab Routine Hyperglycemia Expected: 09/21/2025 (Approximate), Expires: 09/21/2026 Magnesium Lab Routine Hypercarbia Expected: 09/21/2025 (Approximate), Expires: 09/21/2026 Phosphate (As Phosphorus) [id number] Lab Routine Hypercarbia Expected: 09/21/2025, Expires: 09/21/2026 CBC Lab Routine Hypercarbia Expected: 09/21/2025 (Approximate), Expires: 09/21/2026 documented as of this encounter Visit Diagnoses Diagnosis Hypercarbia- Primary Other dyspnea and respiratory abnormality Hyperglycemia Other abnormal glucose documented in this encounter Care Teams Door Worker Relationship Specialty Start Date End Date Belkis Francis MD [address] [place] [address] PCP - General Internal Medicine 10/26/22 documented as of this encounter
--- OUTSIDE RECORDS SUMMARY | 2025-09-24 18:27 | XMS_ITS | Encounter Summary ---
Author Organization [facility] Address [address] [place] [address] Phone Care Team Providers Care Measurement Department Chief Clerk Name Role Phone Belkis Francis MD Primary Care Provider [phone] Reason for Visit * Reason Comments Med Change Request Encounter Details Date Type Department Care Team ([facility] st Contact Info) Description 06/17/2025 Refill [facility] [address] [place] [address] Jalyn Masters, DO [address] [place] [address] [email or web address] Med Change Request Social History Tobacco Use Types Packs/Day Years [...] on filedocumented in this encounter Care Teams Measurement Department Chief Clerk Relationship Specialty Start Date End Date Belkis Francis MD [address] [place] [address] [email or web address] PCP - General Internal Medicine 05/20/25 documented as of this encounter Additional Source Comments The information contained in this document represents components of the legal health record. It is not the complete legal health record.[facility]
--- OUTSIDE RECORDS SUMMARY | 2025-09-24 18:27 | XMS_ITS | Encounter Summary ---
Author Organization [facility] Address [address] [place] [address] Phone Care Team Providers Care Cork Compounder Name Role Phone Pcp, Unknown Primary Care Provider Belkis Gomes MD Primary Care Provider [phone] Encounter Details Date Type Department Care Team (Late st Contact Info) Description 05/18/2025 Procedure Pass [facility], Ct Scan - [address] [address] Social History Tobacco Use Types Packs/Day Years [...] on filedocumented in this encounter Care Teams Cork Compounder Relationship Specialty Start Date End Date Pcp, Unknown PCP - General 04/30/25 05/19/25 Belkis Francis MD [address] [place] [phone] [email or web address] PCP - General Internal Medicine 05/20/25 documented as of this encounter Additional Source Comments The information contained in this document represents components of the legal health record. It is not the complete legal health record.[facility]
--- OUTSIDE RECORDS SUMMARY | 2025-09-24 18:27 | XMS_ITS | Encounter Summary ---
Author Organization [facility] Address [address] [place] [address] Phone Care Team Providers Care Human Performance Consultant Name Role Phone Pcp, Unknown Primary Care Provider Belkis Gomes MD Primary Care Provider [phone] Encounter Details Date Type Department Care Team (Late st Contact Info) Description 05/18/2025 Procedure Pass [facility] [place], Ct Scan - [address] [address] Social History Tobacco Use Types Packs/Day Years [...] on filedocumented in this encounter Care Teams Human Performance Consultant Relationship Specialty Start Date End Date Pcp, Unknown PCP - General 04/30/25 05/19/25 Belkis Francis MD [address] [place] [address] [email or web address] PCP - General Internal Medicine 05/20/25 documented as of this encounter Additional Source Comments The information contained in this document represents components of the legal health record. It is not the complete legal health record.[facility]
--- OUTSIDE RECORDS SUMMARY | 2025-09-24 18:27 | XMS_ITS | Encounter Summary ---
Author Organization [facility] Address [address] [place] [address] Phone Care Team Providers Care Condenser Operator Name Role Phone Pcp, Unknown Primary Care Provider Belkis Gomes MD Primary Care Provider [phone] Encounter Details Date Type Department Care Team (Late st Contact Info) Description 05/18/2025 Procedure Pass [facility], Ct Scan - [address] [address] Social History Tobacco Use Types Packs/Day Years [...] on filedocumented in this encounter Care Teams Condenser Operator Relationship Specialty Start Date End Date Pcp, Unknown PCP - General 04/30/25 05/19/25 Belkis Francis MD [address] [place] [id number] [email or web address] PCP - General Internal Medicine 05/20/25 documented as of this encounter Additional Source Comments The information contained in this document represents components of the legal health record. It is not the complete legal health record.[facility]
--- OUTSIDE RECORDS SUMMARY | 2025-09-24 18:27 | XMS_ITS | Clinical Summary ---
Author Organization [facility] Address [address] [place] [address] Phone Care Team Providers Care Gospel Worker Name Role Phone Belkis Francis MD Primary Care Provider [phone] Allergies Active Allergy Reactions Criticality Noted Date Comments Piperacillin-Tazobactam Rash Low 05/19/2025 Medications tamsulosin (FLOMAX) 0.4 mg Cap Take 0.4 mg by mouth daily. 02/08/2025 Active sodium phosphates 19-7 gram/[address] 1 Units rectally daily as needed (Constipation ). 04/29/2025 Active senna (SENOKOT) 8.6 mg tablet Take 1 tablet by mouth daily as needed for constipation. 04/29/2025 Active rosuvastatin (CRESTOR) 40 MG tablet Take 1 tablet by mouth every morning. 03/14/2025 Active pregabalin (LYRICA) 50 MG capsule Take 50 mg by mouth 3 (three) times a day. 05/10/2025 Active phentermine 15 MG capsule Take 15 mg by mouth 2 (two) times a day. 04/20/2025 Active omeprazole (PRILOSEC) 20 MG capsule Take 20 mg by mouth daily. 04/19/2025 Active montelukast (SINGULAIR) 10 mg tablet Take 10 mg by mouth every evening. 04/19/2025 Active MYRBETRIQ 50 mg Tb24 Take 50 mg by mouth daily. 04/09/2024 Active lisinopril (PRINIVIL,ZESTR IL) 5 MG tablet Take 5 mg by mouth daily. 11/12/2024 Active ferrous sulfate 325 mg (65 mg lime iron) tablet Take 325 mg by mouth daily with breakfast. 04/30/2025 Active LEXAPRO 20 mg tablet Take 20 mg by mouth daily. 12/29/2024 Active DULoxetine (CYMBALTA) 60 MG capsule Take 60 mg by mouth daily. 04/30/2025 Active docusate sodium (COLACE) 100 MG capsule Take 100 mg by mouth daily. 04/30/2025 Active buPROPion (WELLBUTRIN SR) 150 MG SR 12 hr tablet Take 150 mg by mouth 2 (two) times a day with meals. 04/30/2025 Active apixaban (ELIQUIS) 5 mg tablet Take 5 mg by mouth 2 (two) times a day. 04/30/2025 Active acetaminophen (TYLENOL EXTRA STRENGTH) 500 MG tablet Take 1,000 mg by mouth every 8 (eight) hours as needed for pain (specific location in comments) or fever. 05/01/2025 Active oxyCODONE 10 mg Tab Take 0.5-1 tablets (5-10 mg total) by mouth every 4 (four) hours as needed for pain (specific location in comments) (5 mg for moderate pain and 10 mg fro severe pain q 4 hrs). Partial fill ok 10 tablet 05/24/2025 Active metoprolol tartrate (LOPRESSOR) 25 MG tablet Take 2 tablets (50 mg total) by mouth 2 (two) times a day. 120 tablet 05/24/2025 Active Active Problems Problem Noted Date Diagnosed Date [...] at discharge. He has been accepted at [facility] but they will need to obtain BiPAP [...] at discharge. He has been accepted at [facility] but they will need to obtain BiPAP [...] Continue lisinopril Coronary artery disease invo lving [place] coronary artery of [place] heart with angina pectoris 12/20/2022 Chronic pain [...] Assessment & Plan (05/21/2025 9:47 PM EDT): Immunizations Immunization Administration Dates Next Due Pneumococcal [...] VACCINE (1 - 1-dose 75+ series) 2022 INFLUENZA VACCINE (#1) 2025 COVID-19 VACCINE (1 - 2024- season) 2025 CREATININE LEVEL 05/23/2026 05/23/2025, 11/2024, 05/21/2025, Additional [...] Procedure Name Priority Date/Time Associated Diagnosis Comments BASIC METABOLIC PANEL (BMP) Routine 05/23/2025 7:03 AM EDT from Last 3 Months or Most Recently Relevant to Health Maintenance Results * (ABNORMAL) Basic metabolic panel (05/23/2025 7:03 AM EDT) SODIUM 142 133 - 146 mmol/L [facility] CHLORIDE 101 96 - 108 mmol/L [facility] POTASSIUM 4.5 3.3 - 5.1 mmol/L [facility] CO2 32 21 - 35 mmol/L [facility] BUN 12 6 - 19 mg/dL [facility] CREATININE 0.60 0.5 - 1.5 mg/dL [facility] GLUCOSE 109(H) 70 - 99 mg/dL [facility] CALCIUM 9.3 8.4 - 10.3 mg/dL [facility] EGFR 99 >59 mL/min/1.7 3m2 [facility] Comment:Estimated glomerular filtration rate calculated using the CKD-EPI refit equation. ANION GAP 14 10 - 20 mmol/L [facility] Blood 05/23/2025 7:03 AM EDT 05/23/2025 7:10 AM EDT us Varun Bautista MD LAB BLOOD BKR ORDERABLES Final R esult [facility] [address] [place] [address] from Last 3 Months or Most Recently Relevant to Health Maintenance Insurance MEDICARE PART A & B [facility] EXTENSION MEDICARE SUPPLEMENT MEDICARE PART A & B [employer] EX[employer]ENSION MEDICARE SUPPLEMENT MEDICARE PART A & B [employer]TENSION MEDICARE SUPPLEMENT MEDICARE PART A & B [employer] MEDICARE SUPPLEMENT MEDICARE PART A & B [employer] MEDICARE SUPPLEMENT MEDICARE PART A & B [facility] MEDICARE SUPPLEMENT [employer] Advance Directives For more information, please contact: [phone] (9AM - 5PM [place], Saturday-Saturday) Documents on File Type Date Recorded Patient Veteran Appeals Reviewer Expl anation MOLST 05/25/2025 1:51 PM Healthcare Proxy 05/25/2025 1:51 PM Healthcare Proxy 05/24/2025 11:25 AM health care proxy * Full Code (Latest Code Status on File) Date Activated Date Inactivated Comments 05/18/2025 10:51 PM Question Answer Comments Code Status Confirmed With: Other (specify below ) Code Discussion Comments: MOLST form Care Teams Gospel Worker Relationship Specialty Start Date End Date Belkis Francis MD [address] [place] [address] [email or web address] PCP - General Internal Medicine 05/20/25 Additional Source Comments The information contained in this document represents components of the legal health record. It is not the complete legal health record.[facility]
== END 2025-09-24 14:14 | disposition home or self-care (01) ==
LOC: HO.HVNA 14:13
PROVIDERS: Visit Provider Internal Medicine
DX: R06.89 Other abnormalities of breathing (principal); R73.9 Hyperglycemia, unspecified
CPT/HCPCS: 36415; 80053; 83036; 83735; 84100; 85025